=== PATIENT | male | born 1965 | race American Indian/Alaskan Native ===

== ENCOUNTER 2017-02-05 12:55 | Emergency (ER) | payer SELFPAY ==
[2017-02-05 15:01] VITALS: BP 153/98
== END 2017-02-05 14:58 | disposition left against medical advice (07) ==
LOC: ED 12:55
DX: M25.571 Pain in right ankle and joints of right foot (principal); M25.572 Pain in left ankle and joints of left foot; Z53.21 Procedure and treatment not carried out due to patient leaving prior to being seen by health care provider

== ENCOUNTER 2017-02-06 02:11 | Emergency (ER) | payer SELFPAY ==
[2017-02-06 02:19] VITALS: BP 161/103
[2017-02-06] MEDS ORDERED: TYLENOL ONE (02:30)
[2017-02-06 04:00] LABS: Anion Gap 21 mmol/L; Blood Urea Nitrogen 18 mg/dL (9-20); Calcium 7.9 mg/dL (8.4-10.2); Carbon Dioxide 22 mmol/L (22-30); Chloride 105.4 mmol/L (98-107); Glucose 146 mg/dL (75-100); Potassium 3.4 mmol/L (3.6-5.0); Sodium 145 mmol/L (137-145)
[2017-02-06] MEDS ORDERED: TYLENOL PO ONE (05:33)
[2017-02-06 06:09] LABS: Basophils % (Auto) 1.1 % (0.0-1.8); Eosinophils % (Auto) 0.6 % (0.0-4.3); Hematocrit 37.2 % (35.5-45.6); Hemoglobin 11.8 gm/dl (11.8-15.2); Mean Corpuscular HGB Conc 32 % (32-34); Mean Corpuscular Hemoglobin 27 pg (28-32); Mean Corpuscular Volume 84 fl (84-94); Platelet Count 157 K/mm3 (140-440); Red Blood Count 4.43 M/mm3 (3.65-5.03); White Blood Count 4.6 K/mm3 (4.5-11.0)
[2017-02-06 07:19] LABS: Erythrocyte Sedimentation Rate 31 mm/Hr (0-20)
== END 2017-02-06 03:12 | disposition left against medical advice (07) ==
LOC: ED 02:11
DX: M25.531 Pain in right wrist (principal); M25.532 Pain in left wrist; M25.571 Pain in right ankle and joints of right foot; M25.572 Pain in left ankle and joints of left foot; Z53.21 Procedure and treatment not carried out due to patient leaving prior to being seen by health care provider
CPT/HCPCS: 36415; 80048; 85025; 85652; 86140

== ENCOUNTER 2017-02-20 15:32 | Emergency (ER) | payer SELFPAY ==
[2017-02-20 16:24] LABS: Hematocrit 32.5 % (35.5-45.6); Hemoglobin 10.4 gm/dl (11.8-15.2); Mean Corpuscular HGB Conc 32 % (32-34); Mean Corpuscular Hemoglobin 27 pg (28-32); Mean Corpuscular Volume 85 fl (84-94); Platelet Count 112 K/mm3 (140-440); Red Blood Count 3.84 M/mm3 (3.65-5.03); Red Cell Distribution Width 15.4 % (13.2-15.2); White Blood Count 4.8 K/mm3 (4.5-11.0)
[2017-02-20 16:39] LABS: Anion Gap 21 mmol/L; BUN/Creatinine Ratio 18.18; Blood Urea Nitrogen 20 mg/dL (9-20); Carbon Dioxide 19 mmol/L (22-30); Chloride 108.8 mmol/L (98-107); Glucose 131 mg/dL (75-100); Sodium 145 mmol/L (137-145)
[2017-02-20] MEDS ORDERED: NACL 0.9% 1000 ML 1,000 ML IV ONE (16:54)
--- NOTE | 2017-02-20 16:58 | Emergency Department Report ---
HPI - General Chief Complaint: Pain General Time Seen by Provider: 02/20/17 16:11 - HPI HPI: 51-year-old male presents to the emergency department via EMS with complaint of generalized pain and alcohol intoxication. The patient has a history of alcohol abuse and always appears to have elevated alcohol level upon presentation to this emergency Department. He has a past medical history of lupus and hypertension. Patient is currently a poor historian secondary to his intoxicated state. ED Past Medical Hx - Past Medical History Previous Medical History?: Yes Hx Hypertension: Yes Hx Psychiatric Treatment: Yes (Alcohol Abuse, Depression) Additional medical history: lupus, gout. Dermititis, Eczema. Backache - Social History Smoking Status: Never Smoker Substance Use Type: Alcohol - Medications Home Medications: Home Medications Medication Instructions Recorded Confirmed Last Taken Type cloNIDine [Catapres] 0.1 mg PO BID 12/30/13 01/20/16 Unknown History Triamcinolone 0.1% [Kenalog 0.1% 1 applic TP TID #30 tube 09/04/16 Unknown Rx CREAM] ED Review of Systems ROS: Stated complaint: ETOH Other details as noted in HPI Comment: Unobtainable due to pts medical conditions Physical Exam - Physical Exam Vital Signs: Vital Signs 02/20/17 02/20/17 15:44 16:09 Temperature 97.5 F L Pulse Rate 83 Respiratory 16 16 Rate Blood Pressure 129/83 O2 Sat by Pulse 98 98 Oximetry Physical Exam: GENERAL: The patient is well-developed well-nourished. Patient appears intoxicated. HEENT: Normocephalic. Atraumatic. Extraocular motions are intact. Patient has moist mucous membranes. Pupils equal reactive to light bilaterally. NECK: Supple. Trachea is midline. CHEST/LUNGS: Clear to auscultation. There is no respiratory distress noted. HEART/CARDIOVASCULAR: Regular. There is no tachycardia. There is no gallop rub or murmur. ABDOMEN: Abdomen is soft, nontender. Patient has normal bowel sounds. There is no abdominal distention. SKIN: Skin is warm and dry. NEURO: Patient appears intoxicated. He does not follow many commands. He is sleeping unless he is stimulated but is easily arousable. MUSCULOSKELETAL: There is no tenderness or deformity. There is no limitation range of motion. There is no evidence of acute injury. ED Course Vital Signs 02/20/17 02/20/17 15:44 16:09 Temperature 97.5 F L Pulse Rate 83 Respiratory 16 16 Rate Blood Pressure 129/83 O2 Sat by Pulse 98 98 Oximetry ED Medical Decision Making - Lab Data Result diagrams: 02/20/17 16:08 02/20/17 16:08 - Medical Decision Making This is a 51-year-old male presents the emergency department with complaint of some generalized pain but really due to alcohol intoxication. He has a history of alcohol abuse. His blood alcohol level at 4 PM was 0.34. The rest of his labs are mostly unremarkable. He was given IV fluid resuscitation including normal saline and banana bags. The plan for this patient was going to be to keep him in the emergency department until he is legally sober and then he can be discharged unless there is further complaints or something further needs evaluation. Or if the patient appears more sober and there is family to come and take care of him and take responsibility for him that he would be discharged as well. However around 11:00 this evening, in between re- evaluations, it was discovered that the patient had eloped from the emergency department. The [facility] [employer] was contacted and they say that they will send someone out to his known residence and will look out for him while on patrol and if he is found he will be brought back to the emergency department. Critical Care Time: No Critical care attestation.: If time is entered above; I have spent that time in minutes in the direct care of this critically ill patient, excluding procedure time. ED Disposition Clinical Impression: Alcohol abuse, Alcoholism Disposition: ELOPED Is pt being admited?: No Condition: Stable Referrals: PRIMARY CARE, [Primary Care Provider] - 3-5 Days
[2017-02-20] MEDS ORDERED: VITAMIN B-1 100 MG, FOLVITE 1 MG, INFUVITE 10 ML in NACL 0.9% 1000 ML 1,000 ML IV ONE (17:30)
[2017-02-20 19:38] VITALS: BP 114/72
== END 2017-02-20 23:40 | disposition left against medical advice (07) ==
LOC: ED 15:32
DX: F10.129 Alcohol abuse with intoxication, unspecified (principal); I10 Essential (primary) hypertension
CPT/HCPCS: 36415; 80048; 85027; 93005; 93010; 96365; 96366; 99284; G0480; J3411; J7030; 80320

== ENCOUNTER 2017-02-26 19:13 | Emergency (ER) | payer SELFPAY | END 2017-02-26 19:29 | disposition left against medical advice (07) | LOC: ED 19:13 | DX: F10.10 Alcohol abuse, uncomplicated (principal); Z53.21 Procedure and treatment not carried out due to patient leaving prior to being seen by health care provider ==

== ENCOUNTER 2017-06-10 03:07 | Inpatient (IN) | payer SELFPAY ==
[2017-06-10 04:12] LABS: Anion Gap 17 mmol/L; Blood Urea Nitrogen 19 mg/dL (9-20); Calcium 8.3 mg/dL (8.4-10.2); Carbon Dioxide 25 mmol/L (22-30); Chloride 107.7 mmol/L (98-107); Glucose 112 mg/dL (75-100); Potassium 3.9 mmol/L (3.6-5.0); Sodium 146 mmol/L (137-145)
[2017-06-10 04:14] LABS: Basophils % (Auto) 0.6 % (0.0-1.8); Eosinophils % (Auto) 1.1 % (0.0-4.3); Hematocrit 35.8 % (35.5-45.6); Hemoglobin 11.6 gm/dl (11.8-15.2); Mean Corpuscular HGB Conc 32 % (32-34); Mean Corpuscular Hemoglobin 28 pg (28-32); Mean Corpuscular Volume 85 fl (84-94); Platelet Count 177 K/mm3 (140-440); Red Blood Count 4.22 M/mm3 (3.65-5.03); Red Cell Distribution Width 14.2 % (13.2-15.2); White Blood Count 6.5 K/mm3 (4.5-11.0)
[2017-06-10] MEDS ORDERED: VITAMIN B-1 100 MG, FOLVITE 1 MG, INFUVITE 10 ML in NACL 0.9% 1000 ML 1,000 ML IV ONE (05:03)
[2017-06-10] MEDS ORDERED: NACL 0.9% 1000 ML 1,000 ML IV ONE ×2 (05:06→13:36)
[2017-06-10] MEDS ORDERED: APRESOLINE IV ONE (05:31)
--- NOTE | 2017-06-10 05:34 | Emergency Department Report ---
HPI - General Chief Complaint: Medical Clearance Time Seen by Provider: 06/10/17 05:09 - HPI HPI: This is a 51 year-old male presents to the emergency department via EMS from home with a complaint of generalized body aches saying that he is having a lupus flareup. However the patient does admit to alcohol use. He has a history of alcoholism and says that he does drink every day. He also has a past medical history of hypertension, gout. It does not appear as if he took anything for his pain prior to presentation but did drink excessively. The patient is able to answer some questions appropriately but is a poor historian secondary to his level of intoxication. ED Past Medical Hx - Past Medical History Previous Medical History?: Yes Hx Hypertension: Yes Hx Psychiatric Treatment: Yes (Alcohol Abuse, Depression) Additional medical history: lupus, gout. Dermititis, Eczema. Backache - Surgical History Past Surgical History?: No - Social History Smoking Status: Unknown if ever smoked Substance Use Type: Alcohol - Medications Home Medications: Home Medications Medication Instructions Recorded Confirmed Last Taken Type cloNIDine [Catapres] 0.1 mg PO BID 12/30/13 01/20/16 Unknown History Triamcinolone 0.1% [Kenalog 0.1% 1 applic TP TID #30 tube 09/04/16 Unknown Rx CREAM] ED Review of Systems ROS: Stated complaint: BODY PAIN Other details as noted in HPI Comment: Unobtainable due to pts medical conditions Physical Exam - Physical Exam Vital Signs: Vital Signs 06/10/17 06/10/17 03:23 03:38 Temperature 97.5 F L Pulse Rate 79 Respiratory 20 18 Rate Blood Pressure 160/96 O2 Sat by Pulse 100 100 Oximetry Physical Exam: GENERAL: The patient is well-developed well-nourished. Patient appears intoxicated. HENT: Normocephalic. Atraumatic. Patient has moist mucous membranes. EYES: Extraocular motions are intact. Pupils equal reactive to light bilaterally. NECK: Supple. Trachea is midline. CHEST/LUNGS: Clear to auscultation. There is no respiratory distress noted. HEART/CARDIOVASCULAR: Regular. There is no tachycardia. There is no gallop rub or murmur. ABDOMEN: Abdomen is soft, nontender. Patient has normal bowel sounds. There is no abdominal distention. SKIN: Skin is warm and dry. NEURO: Patient is intoxicated appearing. At this time he is sleeping unless he is aroused by verbal and/or tactile stimuli. He can answer some questions appropriately. He is able to tell me person, place and time but does have some slurring of his speech. MUSCULOSKELETAL: There is no tenderness or deformity. There is no evidence of acute injury. ED Course Vital Signs 06/10/17 06/10/17 03:23 03:38 Temperature 97.5 F L Pulse Rate 79 Respiratory 20 18 Rate Blood Pressure 160/96 O2 Sat by Pulse 100 100 Oximetry ED Medical Decision Making - Lab Data Result diagrams: 06/10/17 03:36 06/10/17 03:36 - Medical Decision Making 51-year-old male presents after calling EMS secondary to possible lupus exacerbation and generalized body aches. Patient appears very intoxicated and was found to have a blood alcohol level of 0.42. The patient is arousable and able to answer some questions appropriately, he does appear acutely intoxicated. The rest of his labs are mostly unremarkable but we do not yet have a urinalysis on him. Due to the significantly high blood alcohol level, the patient will be admitted to the hospital for IV fluid resuscitation, electrolytes and vitamins, further evaluation and treatment. He has been accepted for admission by the hospitalist, Dr. Sterling. - Differential Diagnosis alcohol intoxication, lupus, polysubstance abuse Critical Care Time: No Critical care attestation.: If time is entered above; I have spent that time in minutes in the direct care of this critically ill patient, excluding procedure time. ED Disposition Clinical Impression: Alcohol abuse, Alcoholism Alcohol intoxication Qualifiers: Complication of substance-induced condition: with unspecified complication Qualified Code(s): F10.929 - Alcohol use, unspecified with intoxication, unspecified Hypertension Qualifiers: Hypertension type: essential hypertension Qualified Code(s): I10 - Essential ( primary) hypertension Disposition: OP ADMIT IP TO THIS HOSP Is pt being admited?: Yes Condition: Stable Instructions: Hypertension (ED) Referrals: PRIMARY CARE, [Primary Care Provider] - 3-5 Days Time of Disposition: 05:34
[2017-06-10 06:43] LABS: Urine Drugs of Abuse Note Disclamer
[2017-06-10 07:20] LABS: Bilirubin,Urine NEG (Negative); Blood,Urine SM (Negative); Ketones,Urine NEG (Negative); Leukocyte Esterase,Urine NEG (Negative); Nitrite,Urine NEG (Negative); Protein,Urine <15 mg/dL mg/dL (Negative); Urobilinogen,Urine < 2.0 mg/dL (<2.0); WBC,Urine < 1.0 /HPF (0.0-6.0)
--- NOTE | 2017-06-10 08:20 | History and Physical Report ---
History of Present Illness Date of examination: 04/09/17 Date of admission: 06/10/2017 Chief complaint: Generalized body aches History of present illness: Patient is a 51 year-old black male with past medical history of hypertension and lupus who presents to the emergency department via EMS from home with a complaint of generalized body aches saying that he is having a lupus flareup. Patient reported alcohol use and his last drinking was yesterday around 9:00PM. The patient has a history of alcohol abuse. Patient found to have elevated alcohol level upon presentation to this emergency Department. Patient is currently a poor historian secondary to alcohol intoxicated state. Denies fever, shortness of breath, seizure,palpitations, syncope, loss of bowel or bladder continence or recent ill contacts. Past History Past Medical History: hypertension, other (alcohol abuse and ) Past Surgical History: No surgical history Social history: smoking, alcohol abuse Family history: CAD, hypertension Medications and Allergies Allergies Allergy/AdvReac Type Severity Reaction Status Date / Time indomethacin [From Indocin] Allergy Unknown Verified 11/22/15 18:37 indomethacin sodium Allergy Unknown Verified 11/22/15 18:37 [From Indocin] Home Medications Medication Instructions Recorded Confirmed Last Taken Type cloNIDine [Catapres] 0.1 mg PO BID 12/30/13 01/20/16 Unknown History Triamcinolone 0.1% [Kenalog 0.1% 1 applic TP TID #30 tube 09/04/16 Unknown Rx CREAM] Active Meds: Active Medications Acetaminophen (Tylenol) 650 mg PO Q4H PRN PRN Reason: Pain MILD(1-3)/Fever >100.5/GARCIA Bisacodyl (Dulcolax) 10 mg DE QDAY PRN PRN Reason: Constipation unrelieved by MOM Clonidine HCl (Catapres) 0.1 mg PO BID SLOAN Thiamine HCl 100 mg/ Folic Acid 1 mg/ Multivitamins/Minerals 10 ml/ Sodium Chloride 1,011.2 mls @ 250 mls/hr IV ONCE.ED ONE Stop: 06/10/17 09:05 Last Admin: 06/10/17 05:15 Dose: 250 mls/hr Methylprednisolone Sodium Succinate (Solu-Medrol) 40 mg IV Q6HR SLOAN Morphine Sulfate (Morphine) 2 mg IV Q4H PRN PRN Reason: Pain, Moderate (4-6) Ondansetron HCl (Zofran) 4 mg IM Q4H PRN PRN Reason: Nausea And Vomiting Pantoprazole Sodium (Protonix) 40 mg IV DAILY [facility] Triamcinolone Acetonide (Kenalog) 1 applic TP TID [facility] Review of Systems Constitutional: other (generalized body ache), no weight loss, no weight gain, no fever, no chills Ears, nose, mouth and throat: no ear pain, no ear discharge, no tinnitis, no decreased hearing, no nose pain, no nasal congestion, no nasal discharge Cardiovascular: no palpitations, no rapid/irregular heart beat, no edema, no lightheadedness Respiratory: no cough with sputum, no excessive sputum, no hemoptysis, no shortness of breath, no dyspnea on exertion Gastrointestinal: no abdominal pain, no nausea, no vomiting, no diarrhea, no constipation, no change in bowel habits, no hematemesis Genitourinary Male: no flank pain, no urinary hesitancy, no nocturia, no incontinence, no erectile dysfunction Musculoskeletal: no neck stiffness, no neck pain, no shooting arm pain, no arm numbness/tingling, no low back pain, no shooting leg pain Integumentary: no rash, no pruritis, no redness, no sores, no wounds Neurological: no paralysis, no weakness, no parathesias, no numbness, no tingling Psychiatric: no memory loss, no change in sleep habits, no sleep disturbances, no insomnia, no hypersomnia Endocrine: no heat intolerance, no excessive thirst, no polydipsia, no polyuria Hematologic/Lymphatic: no easy bruising, no easy bleeding Allergic/Immunologic: no urticaria, no allergic rhinitis Exam - Constitutional Vitals: Temp Pulse Resp BP Pulse Ox 98.9 F 86 16 140/88 99 06/10/17 07:30 06/10/17 07:30 06/10/17 07:30 06/10/17 07:30 06/10/17 07:30 General appearance: Present: no acute distress, other - EENT Eyes: Present: PERRL ENT: hearing intact - Neck Neck: Present: supple - Respiratory Respiratory: bilateral: CTA - Cardiovascular Rhythm: regular Heart Sounds: Present: S1 & S2 - Extremities Extremities: no ischemia Peripheral Pulses: within normal limits - Abdominal General gastrointestinal: Present: soft, non-tender Male genitourinary: Present: deferred - Rectal Rectal Exam: deferred - Integumentary Integumentary: Present: clear, warm, dry - Musculoskeletal Musculoskeletal: strength equal bilaterally - Psychiatric Psychiatric: appropriate mood/affect - Neurologic Neurologic: CNII-XII intact - Allied Health Allied health notes reviewed: nursing Results - Labs CBC & Chem 7: 06/10/17 03:36 06/10/17 03:36 Labs: Laboratory Last Values WBC 6.5 K/mm3 (4.5-11.0) 06/10/17 03:36 RBC 4.22 M/mm3 (3.65-5.03) 06/10/17 03:36 Hgb 11.6 gm/dl (11.8-15.2) L 06/10/17 03:36 Hct 35.8 % (35.5-45.6) 06/10/17 03:36 MCV 85 fl (84-94) 06/10/17 03:36 MCH 28 pg (28-32) 06/10/17 03:36 MCHC 32 % (32-34) 06/10/17 03:36 RDW 14.2 % (13.2-15.2) 06/10/17 03:36 Plt Count 177 K/mm3 (140-440) 06/10/17 03:36 Lymph % (Auto) 32.9 % (13.4-35.0) 06/10/17 03:36 [place] % (Auto) 7.0 % (0.0-7.3) 06/10/17 03:36 Eos % (Auto) 1.1 % (0.0-4.3) 06/10/17 03:36 Baso % (Auto) 0.6 % (0.0-1.8) 06/10/17 03:36 Lymph # 2.1 K/mm3 (1.2-5.4) 06/10/17 03:36 [place] # 0.5 K/mm3 (0.0-0.8) 06/10/17 03:36 Eos # 0.1 K/mm3 (0.0-0.4) 06/10/17 03:36 Baso # 0.0 K/mm3 (0.0-0.1) 06/10/17 03:36 Seg Neutrophils % 58.4 % (40.0-70.0) 06/10/17 03:36 Seg Neutrophils # 3.8 K/mm3 (1.8-7.7) 06/10/17 03:36 Sodium 146 mmol/L (137-145) H 06/10/17 03:36 Potassium 3.9 mmol/L (3.6-5.0) 06/10/17 03:36 Chloride 107.7 mmol/L (98-107) H 06/10/17 03:36 Carbon Dioxide 25 mmol/L (22-30) 06/10/17 03:36 Anion Gap 17 mmol/L 06/10/17 03:36 BUN 19 mg/dL (9-20) 06/10/17 03:36 Creatinine 1.0 mg/dL (0.8-1.5) 06/10/17 03:36 Estimated GFR > 60 ml/min 06/10/17 03:36 BUN/Creatinine Ratio 19.00 % 06/10/17 03:36 Glucose 112 mg/dL (75-100) H 06/10/17 03:36 Calcium 8.3 mg/dL (8.4-10.2) L 06/10/17 03:36 Total Creatine Kinase 373 units/L (55-170) H 06/10/17 05:10 Urine Color Straw (Yellow) 06/10/17 06:22 Urine Turbidity Clear (Clear) 06/10/17 06:22 Urine pH 5.0 (5.0-7.0) 06/10/17 06:22 Ur Specific [place] 1.013 (1.003-1.030) 06/10/17 06:22 Urine Protein <15 mg/dl mg/dL (Negative) 06/10/17 06:22 Urine Glucose (UA) Neg mg/dL (Negative) 06/10/17 06:22 Urine Ketones Neg mg/dL (Negative) 06/10/17 06:22 Urine Blood Sm (Negative) 06/10/17 06:22 Urine Nitrite Neg (Negative) 06/10/17 06:22 Urine Bilirubin Neg (Negative) 06/10/17 06:22 Urine Urobilinogen < 2.0 mg/dL (<2.0) 06/10/17 06:22 Ur Leukocyte Esterase Neg (Negative) 06/10/17 06:22 Urine WBC (Auto) < 1.0 /HPF (0.0-6.0) 06/10/17 06:22 Urine RBC (Auto) 3.0 /HPF (0.0-6.0) 06/10/17 06:22 U Epithel Cells (Auto) < 1.0 /HPF (0-13.0) 06/10/17 06:22 Plasma/Serum Alcohol 0.42 gm% (0-0.07) H 06/10/17 03:36 Assessment and Plan Assessment and plan: Patient is a 51 year-old black male with past medical history of hypertension and lupus who presents to the emergency department via EMS from home with a complaint of generalized body aches saying that he is having a lupus flareup. Patient reported alcohol use and his last drinking was yesterday around 9:00PM. Toxic metabolic encephalopathy Most likely due to alcohol intoxication and alcohol withdrawal Supportive care Alcohol intoxication/EtOH dependence Patient found to have a blood alcohol level of 0.42 Started banana bag and IV fluid hydration Initiates CIWA protocol, Patients will be counseled on cessation and given resources when patient alert and oriented. Supportive care Nontraumatic rhabdomyolysis elevated total creatinine kinase Strated on NS @125 cc/hr Closely monitor total creatinine kinase Hypertension Resume home antihypertensive medications Hypernatremia Most likely due to dehydration Continue IV fluids Supportive care Lupus Patient reported generalized body aches stated that he is having a lupus flareup ESR/CRP obtained Started on IV steroid Pain Medication Resume home Triamcinolone DVT/ GIprophylaxis Lovenox/ IV Protonix Plan discussed with patient and the nurse Advance Directives: Yes VTE prophylaxis?: Chemical Contraindication Mechanical VTE Prophylaxis: Treatment Not Indicated Plan of care discussed with patient/family: Yes
[2017-06-10] MEDS ORDERED: ATIVAN IV PRN ×2 (08:21→09:00)
[2017-06-10] MEDS ORDERED: TYLENOL PO PRN (08:30)
[2017-06-10] MEDS ORDERED: MORPHINE IV PRN (08:30)
[2017-06-10] MEDS ORDERED: LIBRIUM PO PRN ×2 (09:00)
[2017-06-10] MEDS ORDERED: ZOFRAN IM PRN (09:00)
--- NOTE | 2017-06-10 09:03 | Event Note ---
Date: 06/10/17 51-year-old man with past medical history of SLE and alcohol dependence. He presented complaining of generalized body aches which she stated were consistent with his lupus flare. Admits not taking any medications for lupus was drinking excessively. At the time of presentation to the ER, patient was intoxicated, and somewhat incoherent Labs reviewed. This patient appears dehydrated, has hyponatremia, elevated CPK , UA negative, blood alcohol level is 0.42 * Alcohol intoxication/EtOH dependence: Start banana bag, initiates CIWA protocol, patients will be counseled on cessation and given resources when he is clinically improved * Toxic metabolic encephalopathy: This is most likely due to alcohol intoxication and withdrawal, continue treatment as highlighted above * Nontraumatic rhabdomyolysis: Continue IV fluids * Hypertension: Resume home medications * Hypernatremia/dehydration: Continue IV fluids as highlighted above
[2017-06-10] MEDS ORDERED: CATAPRES PO SCH (10:00)
[2017-06-10] MEDS ORDERED: DULCOLAX PR PRN (10:00)
[2017-06-10] MEDS ORDERED: PROTONIX IV SCH (10:00)
[2017-06-10 10:09] VITALS: BP 143/87
[2017-06-10] MEDS: KENALOG TP SCH ×2 (12:19→18:11)
--- NOTE | 2017-06-10 15:46 | Event Note ---
<BARBY CHAVEZ - Last Filed: 06/10/17 15:46> Date: 06/10/17 Patient eloped from hospital. <YUSUF OJEDA - Last Filed: 06/11/17 10:38> Nurses alerted me that patient eloped from the hospital.
[2017-06-11] MEDS ORDERED: PROTONIX PO SCH (10:00)
== END 2017-06-10 12:50 | disposition left against medical advice (07) | DRG 545 ==
LOC: ED 03:07 → 3A 08:12
PROVIDERS: ADMIT Internal Medicine; ATTEND Internal Medicine
DX: M32.9 Systemic lupus erythematosus, unspecified (principal); G92 Toxic encephalopathy; F10.239 Alcohol dependence with withdrawal, unspecified; E87.1 Hypo-osmolality and hyponatremia; M62.82 Rhabdomyolysis; I10 Essential (primary) hypertension; M10.9 Gout, unspecified; F32.9 Major depressive disorder, single episode, unspecified; E86.0 Dehydration; F10.229 Alcohol dependence with intoxication, unspecified; Z88.8 Allergy status to other drugs, medicaments and biological substances
CPT/HCPCS: 36415; 80048; 80307; 80320; 81001; 82140; 82550; 85025; 85652; 86140; 96365; 96366; 96375; C9113; G0480; J2920; J3411; J7030

== ENCOUNTER 2017-06-10 14:54 | Emergency (ER) | payer SELFPAY ==
[2017-06-10 16:14] VITALS: BP 148/95
== END 2017-06-10 19:29 | disposition left against medical advice (07) ==
LOC: ED 14:54
DX: Z53.21 Procedure and treatment not carried out due to patient leaving prior to being seen by health care provider (principal)

== ENCOUNTER 2019-01-02 23:53 | Emergency (ER) | payer MEDICAID ==
[2019-01-03 00:09] VITALS: BP 152/107
[2019-01-03 01:01] LABS: Basophils % (Auto) 0.9 % (0.0-1.8); Eosinophils % (Auto) 0.4 % (0.0-4.3); Hematocrit 39.3 % (35.5-45.6); Hemoglobin 12.7 gm/dl (11.8-15.2); Lymphocytes # (Auto) 1.7 K/mm3 (1.2-5.4); Lymphocytes % (Auto) 39.3 % (13.4-35.0); Mean Corpuscular HGB Conc 32 % (32-34); Mean Corpuscular Volume 86 fl (84-94); Monocytes # (Auto) 0.6 K/mm3 (0.0-0.8); Monocytes % (Auto) 14.4 % (0.0-7.3); Platelet Count 139 K/mm3 (140-440)
[2019-01-03 01:22] LABS: Alanine Aminotransferase 41 units/L (7-56); BUN/Creatinine Ratio 11; Blood Urea Nitrogen 12 mg/dL (9-20); Calcium 8.4 mg/dL (8.4-10.2); Hemolysis Index 1
== END 2019-01-03 02:10 | disposition left against medical advice (07) ==
LOC: ED 23:53
DX: L93.0 Discoid lupus erythematosus (principal); Z53.21 Procedure and treatment not carried out due to patient leaving prior to being seen by health care provider
CPT/HCPCS: 36415; 80053; 85025; G0480; 80320

== ENCOUNTER 2019-04-03 14:07 | Inpatient (IN) | payer MEDICAID ==
--- NOTE | 2019-04-03 14:11 | Event Note ---
ED Screening Note Date of service: 04/03/19 Time: 14:10 ED Screening Note: 53 y/o male comes in for bilateral feet swelling. tacycardia This initial assessment/diagnostic orders/clinical plan/treatment(s) is/are subject to change based on patients health status, clinical progression and re-assessment by fellow clinical providers in the ED. Further treatment and workup at subsequent clinical providers discretion. Patient/guardian urged not to elope from the ED as their condition may be serious if not clinically assessed and managed. Initial orders include:
[2019-04-03] MEDS ORDERED: CARDIZEM IVP ONE (14:48)
[2019-04-03 14:55] LABS: Alanine Aminotransferase 137 units/L (7-56); Albumin 2.7 g/dL (3.9-5); BUN/Creatinine Ratio 17; Blood Urea Nitrogen 19 mg/dL (9-20); Calcium 7.9 mg/dL (8.4-10.2); Hemolysis Index 0
[2019-04-03 14:58] LABS: Basophils % (Auto) 0.6 % (0.0-1.8); Eosinophils % (Auto) 0.2 % (0.0-4.3); Hematocrit 33.2 % (35.5-45.6); Hemoglobin 10.7 gm/dl (11.8-15.2); Lymphocytes % (Auto) 12.1 % (13.4-35.0); Mean Corpuscular HGB Conc 32 % (32-34); Mean Corpuscular Volume 87 fl (84-94); Monocytes # (Auto) 0.8 K/mm3 (0.0-0.8); Monocytes % (Auto) 9.3 % (0.0-7.3); Platelet Count 145 K/mm3 (140-440); Red Blood Count 3.81 M/mm3 (3.65-5.03); Red Cell Distribution Width 19.1 % (13.2-15.2)
[2019-04-03] MEDS ORDERED: CARDIZEM IV ONE (16:37)
--- NOTE | 2019-04-03 16:41 | Emergency Department Report ---
ED General Adult HPI - General Chief complaint: Extremity Problem,Nontraumatic Stated complaint: FEET SWELLING/LEGS PAIN/LUPUS Time Seen by Provider: 04/03/19 14:10 Source: patient Mode of arrival: Ambulatory Limitations: No Limitations - History of Present Illness Severity scale (0 -10): 0 - Related Data Home Medications Medication Instructions Recorded Confirmed Last Taken cloNIDine [Catapres] 0.1 mg PO BID 12/30/13 01/20/16 Unknown Previous Rx's Medication Instructions Recorded Last Taken Type Triamcinolone 0.1% [Kenalog 0.1% 1 applic TP TID #30 tube 09/04/16 Unknown Rx CREAM] Allergies Allergy/AdvReac Type Severity Reaction Status Date / Time indomethacin [From Indocin] Allergy Unknown Verified 11/22/15 18:37 indomethacin sodium Allergy Unknown Verified 11/22/15 18:37 [From Indocin] ED Review of Systems ROS: Stated complaint: FEET SWELLING/LEGS PAIN/LUPUS Other details as noted in HPI ED Past Medical Hx - Past Medical History Previous Medical History?: Yes Hx Hypertension: Yes Hx Congestive Heart Failure: Yes Hx Diabetes: No Hx Arthritis: Yes Hx Headaches / Migraines: No Hx Seizures: No Hx Psychiatric Treatment: Yes (Alcohol Abuse, Depression) Hx Asthma: No Hx COPD: No Hx Dementia: No Hx HIV: No Additional medical history: lupus, gout. Dermititis, Eczema. Backache - Surgical History Past Surgical History?: No Hx Pacemaker: No - Social History Smoking Status: Never Smoker Substance Use Type: None - Medications Home Medications: Home Medications Medication Instructions Recorded Confirmed Last Taken Type cloNIDine [Catapres] 0.1 mg PO BID 12/30/13 01/20/16 Unknown History Triamcinolone 0.1% [Kenalog 0.1% 1 applic TP TID #30 tube 09/04/16 Unknown Rx CREAM] ED Physical Exam - General Limitations: No Limitations ED Course Vital Signs 04/03/19 04/03/19 04/03/19 14:09 14:49 15:00 Temperature 98.8 F 98.6 F Pulse Rate 143 H 140 H 139 H Respiratory 20 24 22 Rate Blood Pressure 143/104 142/108 Blood Pressure 142/108 [Left] O2 Sat by Pulse 97 98 99 Oximetry 04/03/19 04/03/19 04/03/19 15:01 15:09 15:15 Temperature Pulse Rate 107 H 98 H Respiratory 17 22 26 H Rate Blood Pressure 123/91 123/91 Blood Pressure [Left] O2 Sat by Pulse 100 99 99 Oximetry 04/03/19 04/03/19 16:15 16:32 Temperature Pulse Rate 100 H 112 H Respiratory 20 21 Rate Blood Pressure 130/86 Blood Pressure 145/106 [Left] O2 Sat by Pulse 100 99 Oximetry ED Medical Decision Making - Lab Data Result diagrams: 04/03/19 14:21 04/03/19 14:21 Critical care attestation.: If time is entered above; I have spent that time in minutes in the direct care of this critically ill patient, excluding procedure time. ED Disposition Clinical Impression: Alcoholic liver disease, Anasarca, Atrial fibrillation with rapid ventricular response, Alcoholism Disposition: OP ADMIT IP TO THIS HOSP Is pt being admited?: Yes Does the pt Need Aspirin: No Condition: Stable Referrals: JOSE WOODS MD [Primary Care Provider] - 3-5 Days
--- NOTE | 2019-04-03 16:59 | History and Physical Report ---
History of Present Illness Chief complaint: I cant breathe, and im swelling up History of present illness: 53 YO Male with ETOH Dependence, Obesity, HTN, Systolic CHF, OA, Obesity Hypoventilation, Depression, SLE, Gout, Eczema, Lumbar Pain presents to ED for evaluation. Pt states that he has experienced shortness of breath, and leg swelling, and abdominal distention over the past 2 weeks with progressively worsening symptoms over the past 1 week. Pt acknowledges Orthopnea/PND, decreased exercise tolerance, dypsnea at rest, dypsnea on exertion, bilateral lower extremity edema, noncompliance with cardiac diet, as well as 20lbs weight gain over the past 3 weeks. Pt denies fever, chills, CP, Palpitations, NVD, Tra yousuf, productive cough, BRBPR, Unintentional weight loss, prolonged travel/immobility, unilateral leg swelling, calf pain, hemoptysis, skin rash or recent ill contacts. Pt transported to [facility] via private vehicle. Pt seen and evaluated in ED and found to have CHF Decompensation as well as ETOH induced Liver Failure complicated by Ascites, Acidosis. Pt admitted to telemetry and initiated on CHF protocol. Prior admission on 05/31/17 reviewed. All listed medication reviewed at time of admission. Extra 30 minutes dedicated to discussion of plan of care. Pt acknowledges understanding and agreement with care plan. Past History Past Medical History: hypertension, other (SLE,OBesity Hypoventilation,ETOH Dependence, Obesity) Past Surgical History: No surgical history, Other (reviewed) Social history: single, smoking. denies: alcohol abuse, prescription drug abuse Family history: hypertension Medications and Allergies Allergies Allergy/AdvReac Type Severity Reaction Status Date / Time indomethacin [From Indocin] Allergy Unknown Verified 11/22/15 18:37 indomethacin sodium Allergy Unknown Verified 11/22/15 18:37 [From Indocin] Home Medications Medication Instructions Recorded Confirmed Last Taken Type cloNIDine [Catapres] 0.1 mg PO BID 12/30/13 04/03/19 Unknown History Triamcinolone 0.1% [Kenalog 0.1% 1 applic TP TID #30 tube 09/04/16 04/03/19 Unknown Rx CREAM] Furosemide [Lasix] 20 mg PO QDAY 04/03/19 04/03/19 Unknown History Losartan [Cozaar] 50 mg PO QDAY 04/03/19 04/03/19 Unknown History Review of Systems Constitutional: weight gain, no weight loss, no fever, no chills, no sweats Ears, nose, mouth and throat: no ear pain, no ear discharge, no tinnitis, no decreased hearing, no nose pain, no nasal congestion Cardiovascular: orthopnea, edema, shortness of breath, dyspnea on exertion, paroxysmal nocturnal dyspnea, leg edema, decreased exercise tolerance, no chest pain, no palpitations, no rapid/irregular heart beat Respiratory: no cough, no cough with sputum, no excessive sputum, no hemoptysis Gastrointestinal: no nausea, no vomiting, no diarrhea, no constipation Genitourinary Male: no hematuria, no flank pain, no discharge, no urinary frequency, no urinary hesitancy Rectal: no pain, no incontinence, no bleeding Musculoskeletal: no neck stiffness, no neck pain, no shooting arm pain, no arm numbness/tingling, no low back pain, no shooting leg pain Integumentary: jaundice, no rash, no pruritis, no redness, no sores, no wounds Neurological: no head injury, no transient paralysis, no paralysis, no weakness, no parathesias, no tingling Psychiatric: no anxiety, no memory loss, no change in sleep habits, no sleep disturbances, no insomnia, no hypersomnia, no change in libido Endocrine: no cold intolerance, no heat intolerance, no polyphagia, no excessive thirst, no polydipsia, no polyuria Hematologic/Lymphatic: no easy bruising, no easy bleeding Allergic/Immunologic: no urticaria, no allergic rhinitis, no wheezing Exam - Constitutional Vitals: Temp Pulse Resp BP Pulse Ox 98.6 F 112 H 21 145/106 99 04/03/19 15:00 04/03/19 16:32 04/03/19 16:32 04/03/19 16:32 04/03/19 16:32 General appearance: Present: mild distress, obese - EENT Eyes: Present: PERRL, scleral icterus ENT: hearing intact, clear oral mucosa - Neck Neck: Present: supple, normal ROM - Respiratory Respiratory effort: labored Respiratory: bilateral: diminished, rhonchi - Cardiovascular Heart Sounds: Present: S1 & S2. Absent: rub, click - Extremities Extremities: no ischemia Extremity abnormal: edema Peripheral Pulses: within normal limits - Abdominal General gastrointestinal: Present: soft, non-tender, non-distended, normal bowel sounds Male genitourinary: Present: normal - Integumentary Integumentary: Present: clear, warm, dry - Musculoskeletal Musculoskeletal: gait normal, strength equal bilaterally - Psychiatric Psychiatric: appropriate mood/affect, intact judgment & insight - Neurologic Neurologic: CNII-XII intact, moves all extremities Results - Labs CBC & Chem 7: 04/03/19 14:21 04/03/19 14:21 Labs: Abnormal lab results 04/03/19 04/03/19 04/03/19 Range/Units 14:21 14:21 14:21 Hgb 10.7 L (11.8-15.2) gm/dl Hct 33.2 L (35.5-45.6) % RDW 19.1 H (13.2-15.2) % Lymph % (Auto) 12.1 L (13.4-35.0) % [place] % (Auto) 9.3 H (0.0-7.3) % Lymph # 1.0 L (1.2-5.4) K/mm3 Seg Neutrophils % 77.8 H (40.0-70.0) % Sodium 134 L (137-145) mmol/L Potassium 3.4 L (3.6-5.0) mmol/L Carbon Dioxide 20 L (22-30) mmol/L Glucose 105 H (75-100) mg/dL Calcium 7.9 L (8.4-10.2) mg/dL Total Bilirubin 4.70 H (0.1-1.2) mg/dL AST 366 H (5-40) units/L ALT 137 H (7-56) units/L Alkaline Phosphatase 176 H (35-129) units/L NT-Pro-B Natriuret Pep 2712 H (0-900) pg/mL Albumin 2.7 L (3.9-5) g/dL Assessment and Plan - Patient Problems (1) CHF (congestive heart failure) Current Visit: Yes Status: Acute Qualifiers: Heart failure type: systolic Heart failure chronicity: acute Qualified Code(s): I50.21 - Acute systolic (congestive) heart failure Plan to address problem: Admit to telemetry, Echo, Strict I/O, daily weight, cardiology consulted, diuresis, chest x ray, bnp, pulse oximetry, supplemental oxygen, afterload reduction, thyroid panel, magnesium level. (2) Alcoholic liver disease Current Visit: Yes Status: Acute Plan to address problem: Liver function test, CT Abdomen/Pelvis, (3) Acidosis Current Visit: Yes Status: Acute Plan to address problem: IVF resuscitation therapy as tolerated, repeat bmp (4) Obesity hypoventilation syndrome Current Visit: Yes Status: Acute Plan to address problem: supplemental oxygen, nebulizer therapy, increased physical activity at discharge, NIPPV qhs. (5) Hypokalemia Current Visit: Yes Status: Acute Plan to address problem: Repleted, repeat bmp (6) Hypertension Current Visit: No Status: Acute Qualifiers: Hypertension type: essential hypertension Qualified Code(s): I10 - Essenti al (primary) hypertension Plan to address problem: monitor bp q shift, supportive care. (7) Obesity (BMI 30.0-34.9) Current Visit: Yes Status: Acute Plan to address problem: Balanced diet, increased physical activity at discharge, dietary counseling:+15minutes (8) DVT prophylaxis Current Visit: Yes Status: Acute Plan to address problem: SCD to BLE while in bed,
[2019-04-03] MEDS ORDERED: ATIVAN IV PRN (17:09)
[2019-04-03] MEDS ORDERED: SODIUM CHLORIDE FLUSH SYRINGE 10 ML IV PRN (17:10)
[2019-04-03] MEDS ORDERED: PROVENTIL IH PRN (17:10)
[2019-04-03] MEDS ORDERED: ZOFRAN IV PRN (17:10)
[2019-04-03 17:40] LABS: Free T4 (Free Thyroxine) 1.36 ng/dL (0.76-1.46)
--- NOTE | 2019-04-03 17:48 | Emergency Department Report ---
ED General Adult HPI - General Chief complaint: Extremity Problem,Nontraumatic Stated complaint: FEET SWELLING/LEGS PAIN/LUPUS Time Seen by Provider: 04/03/19 14:10 Source: patient Mode of arrival: Ambulatory Limitations: No Limitations - History of Present Illness Initial comments: Mr. Garcia is a 53 yo male with hx of alcoholism SLE HTN and CHF who presents with presents with leg swelling. He has been noncompliant with medication since discharge from [facility] 2 weeks ago. Unknown whether if he has liver disease. Mr. Garcia is a poor historian. I obtained medical hx from EMR -: Gradual, week(s) (1) Severity scale (0 -10): 0 Quality: burning (sensation in feet) Consistency: constant Improves with: none Worsens with: none - Related Data Home Medications Medication Instructions Recorded Confirmed Last Taken cloNIDine [Catapres] 0.1 mg PO BID 12/30/13 01/20/16 Unknown Previous Rx's Medication Instructions Recorded Last Taken Type Triamcinolone 0.1% [Kenalog 0.1% 1 applic TP TID #30 tube 09/04/16 Unknown Rx CREAM] Allergies Allergy/AdvReac Type Severity Reaction Status Date / Time indomethacin [From Indocin] Allergy Unknown Verified 11/22/15 18:37 indomethacin sodium Allergy Unknown Verified 11/22/15 18:37 [From Indocin] ED Review of Systems ROS: Stated complaint: FEET SWELLING/LEGS PAIN/LUPUS Other details as noted in HPI Comment: All other systems reviewed and negative Constitutional: malaise. denies: fever Respiratory: denies: shortness of breath Cardiovascular: denies: chest pain, palpitations ED Past Medical Hx - Past Medical History Previous Medical History?: Yes Hx Hypertension: Yes Hx Congestive Heart Failure: Yes Hx Diabetes: No Hx Arthritis: Yes Hx Headaches / Migraines: No Hx Seizures: No Hx Psychiatric Treatment: Yes (Alcohol Abuse, Depression) Hx Asthma: No Hx COPD: No Hx Dementia: No Hx HIV: No Additional medical history: lupus, gout. Dermititis, Eczema. Backache - Surgical History Past Surgical History?: No Hx Pacemaker: No - Social History Smoking Status: Never Smoker Substance Use Type: None - Medications Home Medications: Home Medications Medication Instructions Recorded Confirmed Last Taken Type cloNIDine [Catapres] 0.1 mg PO BID 12/30/13 01/20/16 Unknown History Triamcinolone 0.1% [Kenalog 0.1% 1 applic TP TID #30 tube 09/04/16 Unknown Rx CREAM] ED Physical Exam - General Limitations: No Limitations General appearance: alert, in no apparent distress, other (disheveled, appears in poor health chronically) - Head Head exam: Present: atraumatic, normocephalic - Eye Eye exam: Present: normal appearance - ENT ENT exam: Present: mucous membranes moist - Neck Neck exam: Present: normal inspection, full ROM - Respiratory Respiratory exam: Present: normal lung sounds bilaterally. Absent: respiratory distress, wheezes, rales, rhonchi - Cardiovascular Cardiovascular Exam: Present: tachycardia, irregular rhythm, normal heart sounds. Absent: systolic murmur, diastolic murmur, rubs, gallop - GI/Abdominal GI/Abdominal exam: Present: soft, normal bowel sounds. Absent: distended, tenderness, guarding - Rectal Rectal exam: Present: deferred - Extremities Exam Extremities exam: Present: pedal edema, other (pitting edema) - Neurological Exam Neurological exam: Present: alert, oriented X3 - Psychiatric Psychiatric exam: Present: normal affect, normal mood - Skin Skin exam: Present: warm, dry, intact, normal color. Absent: rash ED Course Vital Signs 04/03/19 04/03/19 04/03/19 14:09 14:49 15:00 Temperature 98.8 F 98.6 F Pulse Rate 143 H 140 H 139 H Respiratory 20 24 22 Rate Blood Pressure 143/104 142/108 Blood Pressure 142/108 [Left] O2 Sat by Pulse 97 98 99 Oximetry 04/03/19 04/03/19 04/03/19 15:01 15:09 15:15 Temperature Pulse Rate 107 H 98 H Respiratory 17 22 26 H Rate Blood Pressure 123/91 123/91 Blood Pressure [Left] O2 Sat by Pulse 100 99 99 Oximetry 04/03/19 04/03/19 16:15 16:32 Temperature Pulse Rate 100 H 112 H Respiratory 20 21 Rate Blood Pressure 130/86 Blood Pressure 145/106 [Left] O2 Sat by Pulse 100 99 Oximetry ED Medical Decision Making - Lab Data Result diagrams: 04/03/19 14:21 04/03/19 14:21 - EKG Data 04/03/19 17:47 EKG obtained 1417 Atrial fibrillation vs atrial flutter RVR ventricular rate [address] elevation non specific T wave pattern - Radiology Data Radiology results: report reviewed cxr: NAP - Medical Decision Making 1. anasarca presumably due nonsichemic cardiomyopathy with hx of alcholism. Also possible liver component to presentation 2. Atrial fibrillation RVR rate controlled with diltiazem boluses, appears to be a new diagnosis for patient according to our documentation, unclear nature of [facility] admission 3. alcoholic liver disease has progressed since previous presentations with markedly elevated AST, ALT, bilirubin admitted to hospitalist service for further evaluation Critical Care Time: Yes Critical care time in (mins) excluding proc time.: 40 Critical care attestation.: If time is entered above; I have spent that time in minutes in the direct care of this critically ill patient, excluding procedure time. 40 minutes of critical care time excluding procedures were used in the care of the patient. Patient required multiple assessments and interventions. I reviewed the electronic medical record. I spoke with [employer] iam consultant involved in the care of the patient. ED Disposition Clinical Impression: Alcoholic liver disease, Anasarca, Atrial fibrillation with rapid ventricular response, Alcoholism Disposition: [id number] OP ADMIT IP TO THIS HOSP Is pt being admited?: Yes Does the pt Need Aspirin: No Condition: Stable
--- NOTE | 2019-04-03 17:52 | XRay Report ---
CHEST 1 VIEW INDICATION / CLINICAL INFORMATION: dypsnea. COMPARISON: None available. FINDINGS: SUPPORT DEVICES: None. HEART / MEDIASTINUM: No significant abnormality. LUNGS / PLEURA: No significant pulmonary or pleural abnormality. No pneumothorax. ADDITIONAL FINDINGS: No significant additional findings. IMPRESSION: 1. No acute findings. Signer Name: Wagner Buck MD Signed: 04/03/2019 5:48 PM Workstation Name: [id number]
[2019-04-03] MEDS ORDERED: VITAMIN B-1 PO ONE (18:00)
[2019-04-03] MEDS ORDERED: THERAGRAN Tab PO ONE (18:00)
[2019-04-03] MEDS: FOLVITE PO SCH (18:03)
[2019-04-03] MEDS: LASIX IV SCH (18:03)
[2019-04-03 18:53] LABS: Bilirubin,Direct 3.1 mg/dL (0-0.2)
[2019-04-03] MEDS ORDERED: K-DUR PO ONE ×2 (19:42→23:15)
--- NOTE | 2019-04-03 19:45 | Cat Scan Report ---
CTA CHEST WITH IV CONTRAST INDICATION: patient states trouble breathing. TECHNIQUE: Axial CT images were obtained through the chest after injection of 100 mL IV contrast. 3 plane MIP re constructions were produced. All CT scans at this location are performed using CT dose reduction for ALARA by means of automated exposure control. COMPARISON: None available. FINDINGS: PULMONARY ARTERIES: No pulmonary emboli. AORTA AND ARTERIES: No acute abnormality. MEDIASTINUM: The heart is mildly enlarged. LUNGS: Moderate right pleural effusion with small left pleural effusion. ADDITIONAL FINDINGS: None. UPPER ABDOMEN: Moderate ascites. BONES: No significant osseous abnormality. IMPRESSION: 1. No CT evidence for pulmonary embolism. 2. Cardiomegaly with cardiopulmonary edema and bilateral pleural effusions. CT ABDOMEN AND PELVIS WITH IV CONTRAST INDICATION: patient states trouble breathing. Upper abdominal pain. Abdominal distention. COMPARISON: None available. TECHNIQUE: Axial CT images were obtained through the abdomen and pelvis after 100 mL IV contrast. All CT scans a t this location are performed using CT dose reduction for ALARA by means of automated exposure contro l. FINDINGS -- ABDOMEN: Liver: The liver appears congested.. Gallbladder: Significant periportal edema limits evaluation. Bile Ducts: Normal. Pancreas: Normal. Spleen: Normal. Adrenals: Normal. Right Kidney and Proximal Ureter: Normal. Left Kidney and Proximal Ureter: Normal. Stomach and Bowel: Normal. Lymph Nodes: No significant adenopathy. Aorta: No significant abnormality. IVC: Normal. Additional Findings: None. FINDINGS -- PELVIS: Urinary Bladder and Distal Ureters: Normal. Reproductive Organs: No acute abnormality. Appendix: Not well identified. Bowel: No acute abnormality. Free Fluid: Moderate to large volume free ascites.. Lymph Nodes: No significant adenopathy. Additional Findings: Anasarca. Skeletal System: No acute abnormality. IMPRESSION: Moderate to severe hepatic congestion, possibly secondary to right heart failure. Moderate ascites. Signer Name: Wagner Buck MD Signed: 04/03/2019 7:40 PM Workstation Name: [id number]
--- NOTE | 2019-04-03 19:48 | Cat Scan Report ---
CT ABDOMEN AND PELVIS WITH IV CONTRAST INDICATION: patient states trouble breathing. Upper abdominal pain. Abdominal distention. COMPARISON: None available. TECHNIQUE: Axial CT images were obtained through the abdomen and pelvis after 100 mL IV contrast. All CT scans a t this location are performed using CT dose reduction for ALARA by means of automated exposure contro l. FINDINGS -- ABDOMEN: Liver: The liver appears congested.. Gallbladder: Significant periportal edema limits evaluation. Bile Ducts: Normal. Pancreas: Normal. Spleen: Normal. Adrenals: Normal. Right Kidney and Proximal Ureter: Normal. Left Kidney and Proximal Ureter: Normal. Stomach and Bowel: Normal. Lymph Nodes: No significant adenopathy. Aorta: No significant abnormality. IVC: Normal. Additional Findings: None. FINDINGS -- PELVIS: Urinary Bladder and Distal Ureters: Normal. Reproductive Organs: No acute abnormality. Appendix: Not well identified. Bowel: No acute abnormality. Free Fluid: Moderate to large volume free ascites.. Lymph Nodes: No significant adenopathy. Additional Findings: Anasarca. Skeletal System: No acute abnormality. IMPRESSION: Moderate to severe hepatic congestion, possibly secondary to right heart failure. Moderate ascites. Signer Name: Wagner Buck MD Signed: 04/03/2019 7:44 PM Workstation Name: [email or web address]
[2019-04-03 21:07] LABS: Amphetamine Screen,Urine PRESUMPTIVE NEGATIVE; Benzodiazepines Screen,Urine PRESUMPTIVE NEGATIVE; Cannabinoid Screen,Urine PRESUMPTIVE NEGATIVE; Cocaine Screen,Urine PRESUMPTIVE NEGATIVE; Methadone Screen,Urine PRESUMPTIVE NEGATIVE; Opiate Screen,Urine PRESUMPTIVE NEGATIVE
[2019-04-03 21:12] LABS: Bilirubin,Urine NEG (Negative); Blood,Urine SM (Negative); Color,Urine Yellow (Yellow); Protein,Urine <15 mg/dL mg/dL (Negative)
[2019-04-03] MEDS ORDERED: CARDIZEM PO ONE (22:00)
[2019-04-03] MEDS: KENALOG TP SCH (22:04)
[2019-04-03] MEDS: SODIUM CHLORIDE FLUSH SYRINGE 10 ML IV SCH (22:46)
[2019-04-03] MEDS: CATAPRES PO SCH (22:46)
[2019-04-04] MEDS: LASIX IV SCH ×2 (05:17→19:14)
[2019-04-04 06:19] LABS: Basophils # (Auto) 0.1 K/mm3 (0.0-0.1); Basophils % (Auto) 0.8 % (0.0-1.8); Eosinophils # (Auto) 0.1 K/mm3 (0.0-0.4); Eosinophils % (Auto) 0.9 % (0.0-4.3); Hematocrit 32.6 % (35.5-45.6); Hemoglobin 10.5 gm/dl (11.8-15.2); Lymphocytes # (Auto) 1.3 K/mm3 (1.2-5.4); Lymphocytes % (Auto) 19.6 % (13.4-35.0); Mean Corpuscular HGB Conc 32 % (32-34); Mean Corpuscular Volume 88 fl (84-94); Monocytes # (Auto) 0.7 K/mm3 (0.0-0.8); Monocytes % (Auto) 10.1 % (0.0-7.3); Platelet Count 140 K/mm3 (140-440); Red Blood Count 3.72 M/mm3 (3.65-5.03); Red Cell Distribution Width 19.1 % (13.2-15.2)
[2019-04-04 06:35] LABS: Alanine Aminotransferase 115 units/L (7-56); Albumin 2.4 g/dL (3.9-5); BUN/Creatinine Ratio 15; Blood Urea Nitrogen 18 mg/dL (9-20); Calcium 7.5 mg/dL (8.4-10.2); Hemolysis Index 4
[2019-04-04] MEDS: KENALOG TP SCH ×3 (10:47→22:30)
[2019-04-04] MEDS: LOPRESSOR PO SCH ×2 (10:47→22:30)
[2019-04-04] MEDS: FOLVITE PO SCH (10:48)
[2019-04-04] MEDS: SODIUM CHLORIDE FLUSH SYRINGE 10 ML IV SCH ×2 (10:49→22:29)
--- NOTE | 2019-04-04 11:16 | Consultation ---
History of Present Illness Consult date: 04/04/19 Consult reason: congestive heart failure History of present illness: 53 YO Male with h/o alcoholism, Obesity, HTN, Obesity, SLE, and paroxysmal a trial fibrillation/flutter who presented to hospital with worsening edema and dyspnea. Pt states that he has experienced shortness of breath, and leg swelling, and abdominal distention over the past 2 weeks with progressively worsening symptoms over the past 1 week. He has also noticed orthopnea and PND. He reports he completely stopped drinking alcohol 3 weeks ago. Of note, he was previously anticoagulated with eliquis and reports he has still been taking at home although it is not listed in his home medications. His INR level and liver enzymes are currently elevated presumably due to liver disease. His last echocardiogram in our office on 06/23/2018 revealed EF of 50-55%, biatrial enlargement. ECG is consistent with Atrial flutter, RBBB Past History Past Medical History: atrial fib, hypertension, other (SLE,OBesity Hypoventilation,ETOH Dependence, Obesity) Past Surgical History: No surgical history, Other (reviewed) Social history: single, smoking. denies: alcohol abuse, prescription drug abuse Family history: hypertension Medications and Allergies Allergies Allergy/AdvReac Type Severity Reaction Status Date / Time indomethacin [From Indocin] Allergy Unknown Verified 11/22/15 18:37 indomethacin sodium Allergy Unknown Verified 11/22/15 18:37 [From Indocin] Home Medications Medication Instructions Recorded Confirmed Last Taken Type cloNIDine [Catapres] 0.1 mg PO BID 12/30/13 04/03/19 Unknown History Triamcinolone 0.1% [Kenalog 0.1% 1 applic TP TID #30 tube 09/04/16 04/03/19 Unknown Rx CREAM] Furosemide [Lasix] 20 mg PO QDAY 04/03/19 04/03/19 Unknown History Losartan [Cozaar] 50 mg PO QDAY 04/03/19 04/03/19 Unknown History Active Meds: Active Medications Acetaminophen (Tylenol) 650 mg PO Q4H PRN PRN Reason: Pain MILD(1-3)/Fever >100.5/GARCIA Albuterol (Proventil) 2.5 mg IH Q4H PRN PRN Reason: Shortness Of Breath Clonidine HCl (Catapres) 0.1 mg PO BID [facility] Last Admin: 04/03/19 22:46 Dose: 0.1 mg Documented by: Folic Acid (Folvite) 1 mg PO QDAY [facility] Last Admin: 04/04/19 10:48 Dose: 1 mg Documented by: Furosemide (Lasix) 20 mg IV BID@0600,1800 [facility] Last Admin: 04/04/19 05:17 Dose: 20 mg Documented by: Lorazepam (Ativan) 2 mg IV Q1H PRN PRN Reason: CIWA-Ar 8-15 Last Admin: 04/03/19 18:03 Dose: 2 mg Documented by: Losartan Potassium (Cozaar) 50 mg PO QDAY [facility] Metoprolol Tartrate (Lopressor) 50 mg PO BID [facility] Last Admin: 04/04/19 10:47 Dose: 50 mg Documented by: Ondansetron HCl (Zofran) 4 mg IV Q8H PRN PRN Reason: Nausea And Vomiting Sodium Chloride (Sodium Chloride Flush Syringe 10 Ml) 10 ml IV BID [facility] Last Admin: 04/04/19 10:49 Dose: 10 ml Documented by: Sodium Chloride (Sodium Chloride Flush Syringe 10 Ml) 10 ml IV PRN PRN PRN Reason: LINE FLUSH Triamcinolone Acetonide (Kenalog) 1 applic TP TID [facility] Last Admin: 04/04/19 10:47 Dose: 1 applic Documented by: Review of Systems All systems: negative (per hpi) Physical Examination Vital Signs Temp Pulse Resp BP Pulse Ox 98.8 F 143 H 20 143/104 97 04/03/19 14:09 04/03/19 14:09 04/03/19 14:09 04/03/19 14:09 04/03/19 14:09 General appearance: no acute distress Neck: Positive: neck supple Cardiac: Positive: Regular Rhythm, Systolic Murmur (II/ HSM at LSB), Tachycardia Lungs: Positive: clear to auscultation Abdomen: Positive: Soft, Active Bowel Sounds, Distended Extremities: Present: +3 Edema Results 04/04/19 04:57 04/04/19 04:57 Cardiac Enzymes 04/03/19 04/04/19 Range/Units 14:21 04:57 AST 366 H 310 H (5-40) units/L Coagulation 04/03/19 Range/Units 20:33 PT 22.3 H (12.2-14.9) Sec. INR 2.00 H (0.87-1.13) CBC 04/03/19 04/04/19 Range/Units 14:21 04:57 WBC 8.2 6.7 (4.5-11.0) K/mm3 RBC 3.81 3.72 (3.65-5.03) M/mm3 Hgb 10.7 L 10.5 L (11.8-15.2) gm/dl Hct 33.2 L 32.6 L (35.5-45.6) % Plt Count 145 140 (140-440) K/mm3 Lymph # 1.0 L 1.3 (1.2-5.4) K/mm3 [place] # 0.8 0.7 (0.0-0.8) K/mm3 Eos # 0.0 0.1 (0.0-0.4) K/mm3 Baso # 0.0 0.1 (0.0-0.1) K/mm3 Comprehensive Metabolic Panel 04/03/19 04/03/19 04/04/19 Range/Units 14:21 18:11 04:57 Sodium 134 L 136 L (137-145) mmol/L Potassium 3.4 L 3.5 L (3.6-5.0) mmol/L Chloride 100.2 101.7 (98-107) mmol/L Carbon Dioxide 20 L 23 (22-30) mmol/L BUN 19 18 (9-20) mg/dL Creatinine 1.1 1.2 (0.8-1.5) mg/dL Glucose 105 H 101 H (75-100) mg/dL Calcium 7.9 L 7.5 L (8.4-10.2) mg/dL Direct Bilirubin 3.1 H (0-0.2) mg/dL Indirect Bilirubin 1.9 mg/dL AST 366 H 310 H (5-40) units/L ALT 137 H 115 H (7-56) units/L Alkaline Phosphatase 176 H 157 H (35-129) units/L Total Protein 7.8 7.2 (6.3-8.2) g/dL Albumin 2.7 L 2.4 L (3.9-5) g/dL Assessment and Plan Acute heart failure: Preserved EF based on last echo in 06/2018 Alcoholism: Pt reports quitting about 3 weeks ago. Atrial flutter Coagulopathy: Recently on eliquis Alcoholic liver disease H/O SLE Obesity Recommend: Continue diuresis and monitor electrolytes Continue metoprolol for rate control - will titrate as tolerated. Repeat echocardiogram Will defer anticoagulation for now till liver disease is further evaluated. Treatment of alcoholism and alcoholic liver disease per primary service
[2019-04-04] MEDS: COZAAR PO SCH (11:24)
[2019-04-04] MEDS: CATAPRES PO SCH ×2 (11:25→22:30)
--- NOTE | 2019-04-04 12:22 | Progress Note ---
Assessment and Plan Assessment and plan: Acute heart failure with preserved EF (HFpEF). Continue diuresis per cardiology. Alcoholism. Follow-up with outpatient resources. H/O paroxysmal atrial fibrillation/flutter. Follow-up echocardiogram. Coagulopathy. Hold anticoagulation per cardiology. Alcoholic liver disease. Continue supportive care. Monitor for withdrawal and initiate CIWA as needed H/O SLE. Obesity. History Interval history: No new issues overnight Hospitalist Physical - Constitutional Vitals: Temp Pulse Resp BP Pulse Ox 98.0 F 68 18 104/73 98 04/04/19 04:08 04/04/19 11:25 04/04/19 04:08 04/04/19 11:25 04/04/19 04:08 General appearance: Present: mild distress, obese - EENT Eyes: Present: PERRL, EOM intact ENT: hearing intact, clear oral mucosa, dentition normal - Neck Neck: Present: supple, normal ROM - Respiratory Respiratory effort: normal Respiratory: bilateral: CTA - Cardiovascular Rhythm: regular Heart Sounds: Present: S1 & S2. Absent: gallop, rub - Extremities Extremities: no ischemia, No edema, Full ROM - Abdominal General gastrointestinal: soft, non-tender, non-distended, normal bowel sounds - Integumentary Integumentary: Present: clear, warm, dry - Neurologic Neurologic: CNII-XII intact, moves all extremities Results - Labs CBC & Chem 7: 04/04/19 04:57 04/04/19 04:57 Labs: Laboratory Last Values WBC 6.7 K/mm3 (4.5-11.0) 04/04/19 04:57 RBC 3.72 M/mm3 (3.65-5.03) 04/04/19 04:57 Hgb 10.5 gm/dl (11.8-15.2) L 04/04/19 04:57 Hct 32.6 % (35.5-45.6) L 04/04/19 04:57 MCV 88 fl (84-94) 04/04/19 04:57 MCH 28 pg (28-32) 04/04/19 04:57 MCHC 32 % (32-34) 04/04/19 04:57 RDW 19.1 % (13.2-15.2) H 04/04/19 04:57 Plt Count 140 K/mm3 (140-440) 04/04/19 04:57 Lymph % (Auto) 19.6 % (13.4-35.0) 04/04/19 04:57 [place] % (Auto) 10.1 % (0.0-7.3) H 04/04/19 04:57 Eos % (Auto) 0.9 % (0.0-4.3) 04/04/19 04:57 Baso % (Auto) 0.8 % (0.0-1.8) 04/04/19 04:57 Lymph # 1.3 K/mm3 (1.2-5.4) 04/04/19 04:57 [place] # 0.7 K/mm3 (0.0-0.8) 04/04/19 04:57 Eos # 0.1 K/mm3 (0.0-0.4) 04/04/19 04:57 Baso # 0.1 K/mm3 (0.0-0.1) 04/04/19 04:57 Seg Neutrophils % 68.6 % (40.0-70.0) 04/04/19 04:57 Seg Neutrophils # 4.6 K/mm3 (1.8-7.7) 04/04/19 04:57 PT 22.3 Sec. (12.2-14.9) H 04/03/19 20:33 INR 2.00 (0.87-1.13) H 04/03/19 20:33 Sodium 136 mmol/L (137-145) L 04/04/19 04:57 Potassium 3.5 mmol/L (3.6-5.0) L 04/04/19 04:57 Chloride 101.7 mmol/L (98-107) 04/04/19 04:57 Carbon Dioxide 23 mmol/L (22-30) 04/04/19 04:57 15 mmol/L 04/04/19 04:57 BUN 18 mg/dL (9-20) 04/04/19 04:57 1.2 mg/dL (0.8-1.5) 04/04/19 04:57 Estimated GFR > 60 ml/min 04/04/19 04:57 15 % 04/04/19 04:57 Glucose 101 mg/dL (75-100) H 04/04/19 04:57 Calcium 7.5 mg/dL (8.4-10.2) L 04/04/19 04:57 3.50 mg/dL (0.1-1.2) H 04/04/19 04:57 3.1 mg/dL (0-0.2) H 04/03/19 18:11 1.9 mg/dL 04/03/19 18:11 AST 310 units/L (5-40) H 04/04/19 04:57 ALT 115 units/L (7-56) H 04/04/19 04:57 157 units/L (35-129) H 04/04/19 04:57 < 0.010 ng/mL (0.00-0.029) 04/03/19 14:21 NT-Pro-B Natriuret Pep 2712 pg/mL (0-900) H 04/03/19 14:21 7.2 g/dL (6.3-8.2) 04/04/19 04:57 2.4 g/dL (3.9-5) L 04/04/19 04:57 0.5 % 04/04/19 04:57 TSH 4.490 mlU/mL (0.270-4.200) H 04/03/19 14:21 Free T4 1.36 ng/dL (0.76-1.46) 04/03/19 14:21 Yellow (Yellow) 04/03/19 20:16 Clear (Clear) 04/03/19 20:16 7.0 (5.0-7.0) 04/03/19 20:16 Ur Specific [place] 1.011 (1.003-1.030) 04/03/19 20:16 <15 mg/dl mg/dL (Negative) 04/03/19 20:16 Neg mg/dL (Negative) 04/03/19 20:16 Neg mg/dL (Negative) 04/03/19 20:16 Sm (Negative) 04/03/19 20:16 Neg (Negative) 04/03/19 20:16 Neg (Negative) 04/03/19 20:16 4.0 mg/dL (<2.0) 04/03/19 20:16 Ur Leukocyte Esterase Neg (Negative) 04/03/19 20:16 0.0 /HPF (0.0-6.0) 04/03/19 20:16 1.0 /HPF (0.0-6.0) 04/03/19 20:16 Presumptive negative 04/03/19 20:16 Presumptive negative 04/03/19 20:16 Ur Barbiturates Screen Presumptive negative 04/03/19 20:16 Ur Phencyclidine Scrn Presumptive negative 04/03/19 20:16 Ur Amphetamines Screen Presumptive negative 04/03/19 20:16 U Benzodiazepines Scrn Presumptive negative 04/03/19 20:16 Presumptive negative 04/03/19 20:16 U Marijuana (THC) Screen Presumptive negative 04/03/19 20:16 Disclamer 04/03/19 20:16 Plasma/Serum Alcohol < 0.01 % (0-0.07) 04/03/19 14:21 Active Medications - Current Medications Current Medications: Generic Name Dose Route Start Last Admin Trade Name Freq PRN Reason Stop Dose Admin Acetaminophen 650 mg 04/03/19 17:10 Tylenol PO Q4H PRN Pain MILD(1-3)/Fever >100.5/GARCIA Albuterol 2.5 mg 04/03/19 17:10 Proventil IH Q4H PRN Shortness Of Breath Clonidine HCl 0.1 mg 04/03/19 22:00 04/04/19 11:25 Catapres PO Not Given BID SLOAN Folic Acid 1 mg 04/03/19 18:00 04/04/19 10:48 Folvite PO 1 mg QDAY SLOAN Administration Furosemide 20 mg 04/03/19 18:00 04/04/19 05:17 Lasix IV 20 mg BID@0600,1800 SLOAN Administration Lorazepam 2 mg 04/03/19 17:09 04/03/19 18:03 Ativan IV 2 mg Q1H PRN Administration CIWA-Ar 8-15 Losartan Potassium 50 mg 04/04/19 10:00 04/04/19 11:24 Cozaar PO Not Given QDAY SLOAN Metoprolol Tartrate 50 mg 04/04/19 10:00 04/04/19 10:47 Lopressor PO 50 mg BID SLOAN Administration Ondansetron HCl 4 mg 04/03/19 17:10 Zofran IV Q8H PRN Nausea And Vomiting Sodium Chloride 10 ml 04/03/19 22:00 04/04/19 10:49 Sodium Chloride Flush Syringe 10 Ml IV 10 ml BID SLOAN Administration Sodium Chloride 10 ml 04/03/19 17:10 Sodium Chloride Flush Syringe 10 Ml IV PRN PRN LINE FLUSH Triamcinolone Acetonide 1 applic 04/03/19 20:00 04/04/19 10:47 Kenalog TP 1 applic TID SLOAN Administration
[2019-04-04] MEDS: TYLENOL PO PRN (22:17)
[2019-04-05] MEDS: LASIX IV SCH ×2 (06:39→17:38)
[2019-04-05] MEDS: KENALOG TP SCH ×4 (08:42→22:28)
[2019-04-05] MEDS: COZAAR PO SCH (09:42)
[2019-04-05] MEDS: FOLVITE PO SCH (09:43)
[2019-04-05] MEDS: CATAPRES PO SCH ×2 (09:43→21:47)
[2019-04-05] MEDS: SODIUM CHLORIDE FLUSH SYRINGE 10 ML IV SCH ×2 (09:44→22:28)
[2019-04-05] MEDS: LOPRESSOR PO SCH ×2 (09:44→21:47)
--- NOTE | 2019-04-05 11:27 | Progress Note ---
Assessment and Plan Acute systolic heart failure Alcoholism: Pt reports quitting about 3 weeks ago. Atrial flutter. persists Coagulopathy: Recently on eliquis Alcoholic liver disease H/O SLE Obesity An echocardiogram revealed a 4 chamber dilated cardiomyopathy with a severely decreased left ventricular systolic function, EF 15-20%. Recommend: Anticoagulation for atrial flutter is deferred untill liver disease is further evaluated. Treatment of alcoholism and alcoholic liver disease per primary service. Obtain prior records from [facility] for review. Medical therapy for systolic heart failure and dilated cardiomyopathy including a trial of IV milrinone for 72hrs. Subjective Date of service: 04/05/19 Interval history: Patient is resting in bed. Still with shortness of breath with minimal exertion. Objective Vital Signs Temp Pulse Resp BP Pulse Ox 04/05/19 10:00 65 04/05/19 09:44 65 145/100 04/05/19 09:43 65 145/100 04/05/19 09:42 65 145/100 04/05/19 03:19 97.4 F L 66 16 113/86 99 04/04/19 23:51 60 20 117/60 94 04/04/19 23:47 97.5 F L 04/04/19 23:45 53 L 20 95/59 100 04/04/19 20:23 97.8 F 71 18 111/70 92 04/04/19 17:05 81/58 04/04/19 11:25 67 104/73 98 04/04/19 11:24 68 104/73 - Physical Examination General: No Apparent Distress HEENT: Positive: PERRL Neck: Positive: neck supple Cardiac: Positive: irregularly irregular Lungs: Positive: Decreased Breath Sounds Extremities: Present: +3 Edema
--- NOTE | 2019-04-05 11:54 | Progress Note ---
Assessment and Plan Assessment and plan: Acute heart failure with preserved EF (HFpEF). Continue diuresis per cardiology. Echocardiogram reveals severe four-chamber dilated cardiomyopathy. Global left ventricular systolic function is severely decreased with EF 15-20%. Moderate concentric left ventricular hypertrophy. Alcoholism. Follow-up with outpatient resources. H/O paroxysmal atrial fibrillation/flutter. Continue metoprolol twice a day. Coagulopathy. Hold anticoagulation per cardiology because of liver disease. Alcoholic liver disease. Continue supportive care. Monitor for withdrawal and initiate CIWA as needed H/O SLE. Obesity. History Interval history: No new issues overnight Hospitalist Physical - Constitutional Vitals: Temp Pulse Resp BP Pulse Ox 97.4 F L 65 16 145/100 99 04/05/19 03:19 04/05/19 10:00 04/05/19 03:19 04/05/19 09:44 04/05/19 03:19 General appearance: Present: no acute distress - EENT Eyes: Present: PERRL, EOM intact ENT: hearing intact, clear oral mucosa, dentition normal - Neck Neck: Present: supple, normal ROM - Respiratory Respiratory effort: normal Respiratory: bilateral: CTA - Cardiovascular Rhythm: regular Heart Sounds: Present: S1 & S2. Absent: gallop, rub - Extremities Extremities: no ischemia, No edema, Full ROM - Abdominal General gastrointestinal: soft, non-tender, non-distended, normal bowel sounds - Integumentary Integumentary: Present: clear, warm, dry - Neurologic Neurologic: CNII-XII intact, moves all extremities Results - Labs CBC & Chem 7: 04/04/19 04:57 04/04/19 04:57 Labs: Laboratory Last Values WBC 6.7 K/mm3 (4.5-11.0) 04/04/19 04:57 RBC 3.72 M/mm3 (3.65-5.03) 04/04/19 04:57 Hgb 10.5 gm/dl (11.8-15.2) L 04/04/19 04:57 Hct 32.6 % (35.5-45.6) L 04/04/19 04:57 MCV 88 fl (84-94) 04/04/19 04:57 MCH 28 pg (28-32) 04/04/19 04:57 MCHC 32 % (32-34) 04/04/19 04:57 RDW 19.1 % (13.2-15.2) H 04/04/19 04:57 Plt Count 140 K/mm3 (140-440) 04/04/19 04:57 Lymph % (Auto) 19.6 % (13.4-35.0) 04/04/19 04:57 [place] % (Auto) 10.1 % (0.0-7.3) H 04/04/19 04:57 Eos % (Auto) 0.9 % (0.0-4.3) 04/04/19 04:57 Baso % (Auto) 0.8 % (0.0-1.8) 04/04/19 04:57 Lymph # 1.3 K/mm3 (1.2-5.4) 04/04/19 04:57 [place] # 0.7 K/mm3 (0.0-0.8) 04/04/19 04:57 Eos # 0.1 K/mm3 (0.0-0.4) 04/04/19 04:57 Baso # 0.1 K/mm3 (0.0-0.1) 04/04/19 04:57 Seg Neutrophils % 68.6 % (40.0-70.0) 04/04/19 04:57 Seg Neutrophils # 4.6 K/mm3 (1.8-7.7) 04/04/19 04:57 PT 22.3 Sec. (12.2-14.9) H 04/03/19 20:33 INR 2.00 (0.87-1.13) H 04/03/19 20:33 Sodium 136 mmol/L (137-145) L 04/04/19 04:57 Potassium 3.5 mmol/L (3.6-5.0) L 04/04/19 04:57 Chloride 101.7 mmol/L (98-107) 04/04/19 04:57 Carbon Dioxide 23 mmol/L (22-30) 04/04/19 04:57 15 mmol/L 04/04/19 04:57 BUN 18 mg/dL (9-20) 04/04/19 04:57 1.2 mg/dL (0.8-1.5) 04/04/19 04:57 Estimated GFR > 60 ml/min 04/04/19 04:57 15 % 04/04/19 04:57 Glucose 101 mg/dL (75-100) H 04/04/19 04:57 Calcium 7.5 mg/dL (8.4-10.2) L 04/04/19 04:57 3.50 mg/dL (0.1-1.2) H 04/04/19 04:57 3.1 mg/dL (0-0.2) H 04/03/19 18:11 1.9 mg/dL 04/03/19 18:11 AST 310 units/L (5-40) H 04/04/19 04:57 ALT 115 units/L (7-56) H 04/04/19 04:57 157 units/L (35-129) H 04/04/19 04:57 < 0.010 ng/mL (0.00-0.029) 04/03/19 14:21 NT-Pro-B Natriuret Pep 2712 pg/mL (0-900) H 04/03/19 14:21 7.2 g/dL (6.3-8.2) 04/04/19 04:57 2.4 g/dL (3.9-5) L 04/04/19 04:57 0.5 % 04/04/19 04:57 TSH 4.490 mlU/mL (0.270-4.200) H 04/03/19 14:21 Free T4 1.36 ng/dL (0.76-1.46) 04/03/19 14:21 Yellow (Yellow) 04/03/19 20:16 Clear (Clear) 04/03/19 20:16 7.0 (5.0-7.0) 04/03/19 20:16 Ur Specific [place] 1.011 (1.003-1.030) 04/03/19 20:16 <15 mg/dl mg/dL (Negative) 04/03/19 20:16 Neg mg/dL (Negative) 04/03/19 20:16 Neg mg/dL (Negative) 04/03/19 20:16 Sm (Negative) 04/03/19 20:16 Neg (Negative) 04/03/19 20:16 Neg (Negative) 04/03/19 20:16 4.0 mg/dL (<2.0) 04/03/19 20:16 Ur Leukocyte Esterase Neg (Negative) 04/03/19 20:16 0.0 /HPF (0.0-6.0) 04/03/19 20:16 1.0 /HPF (0.0-6.0) 04/03/19 20:16 Presumptive negative 04/03/19 20:16 Presumptive negative 04/03/19 20:16 Ur Barbiturates Screen Presumptive negative 04/03/19 20:16 Ur Phencyclidine Scrn Presumptive negative 04/03/19 20:16 Ur Amphetamines Screen Presumptive negative 04/03/19 20:16 U Benzodiazepines Scrn Presumptive negative 04/03/19 20:16 Presumptive negative 04/03/19 20:16 U Marijuana (THC) Screen Presumptive negative 04/03/19 20:16 Disclamer 04/03/19 20:16 Plasma/Serum Alcohol < 0.01 % (0-0.07) 04/03/19 14:21 Active Medications - Current Medications Current Medications: Generic Name Dose Route Start Last Admin Trade Name Freq PRN Reason Stop Dose Admin Acetaminophen 650 mg 04/03/19 17:10 04/04/19 22:17 Tylenol PO 650 mg Q4H PRN Administration Pain MILD(1-3)/Fever >100.5/GARCIA Albuterol 2.5 mg 04/03/19 17:10 Proventil IH Q4H PRN Shortness Of Breath Clonidine HCl 0.1 mg 04/03/19 22:00 04/05/19 09:43 Catapres PO 0.1 mg BID SLOAN Administration Folic Acid 1 mg 04/03/19 18:00 04/05/19 09:43 Folvite PO 1 mg QDAY SLOAN Administration Furosemide 20 mg 04/03/19 18:00 04/05/19 06:39 Lasix IV 20 mg BID@0600,1800 SLOAN Administration Lorazepam 2 mg 04/03/19 17:09 04/03/19 18:03 Ativan IV 2 mg Q1H PRN Administration CIWA-Ar 8-15 Losartan Potassium 50 mg 04/04/19 10:00 04/05/19 09:42 Cozaar PO 50 mg QDAY SLOAN Administration Metoprolol Tartrate 50 mg 04/04/19 10:00 04/05/19 09:44 Lopressor PO 50 mg BID SLOAN Administration Ondansetron HCl 4 mg 04/03/19 17:10 Zofran IV Q8H PRN Nausea And Vomiting Sodium Chloride 10 ml 04/03/19 22:00 04/05/19 09:44 Sodium Chloride Flush Syringe 10 Ml IV 10 ml BID SLOAN Administration Sodium Chloride 10 ml 04/03/19 17:10 Sodium Chloride Flush Syringe 10 Ml IV PRN PRN LINE FLUSH Triamcinolone Acetonide 1 applic 04/03/19 20:00 04/05/19 08:42 Kenalog TP Not Given TID SLOAN
[2019-04-05] MEDS: MILRINONE-D5W 20 MG/100 ML 20 MG/100 ML BAG IV SCH ×2 (13:57→21:43)
[2019-04-05] MEDS: TYLENOL PO PRN (21:52)
[2019-04-06] MEDS: MILRINONE-D5W 20 MG/100 ML 20 MG/100 ML BAG IV SCH ×3 (05:18→20:26)
[2019-04-06] MEDS: LASIX IV SCH ×2 (05:18→17:10)
[2019-04-06 07:46] LABS: Basophils # (Auto) 0.1 K/mm3 (0.0-0.1); Basophils % (Auto) 0.7 % (0.0-1.8); Eosinophils # (Auto) 0.1 K/mm3 (0.0-0.4); Eosinophils % (Auto) 1.4 % (0.0-4.3); Hematocrit 32.6 % (35.5-45.6); Hemoglobin 10.7 gm/dl (11.8-15.2); Lymphocytes # (Auto) 1.1 K/mm3 (1.2-5.4); Lymphocytes % (Auto) 15.3 % (13.4-35.0); Mean Corpuscular HGB Conc 33 % (32-34); Mean Corpuscular Volume 87 fl (84-94); Monocytes # (Auto) 0.9 K/mm3 (0.0-0.8); Monocytes % (Auto) 12.7 % (0.0-7.3); Platelet Count 116 K/mm3 (140-440); Red Blood Count 3.73 M/mm3 (3.65-5.03); Red Cell Distribution Width 19.6 % (13.2-15.2)
[2019-04-06 08:05] LABS: BUN/Creatinine Ratio 23; Blood Urea Nitrogen 25 mg/dL (9-20); Calcium 8.1 mg/dL (8.4-10.2); Hemolysis Index 19
[2019-04-06 09:02] LABS: Albumin 2.6 g/dL (3.9-5); Bilirubin,Direct 2.2 mg/dL (0-0.2)
--- NOTE | 2019-04-06 09:33 | Progress Note ---
Assessment and Plan Assessment and plan: Acute heart failure with preserved EF (HFpEF). Continue diuresis per cardiology. Echocardiogram reveals severe four-chamber dilated cardiomyopathy. Global left ventricular systolic function is severely decreased with EF 15-20%. Moderate concentric left ventricular hypertrophy. Alcoholism. Follow-up with outpatient resources. H/O paroxysmal atrial fibrillation/flutter. Continue metoprolol twice a day. Coagulopathy. Hold anticoagulation per cardiology because of liver disease. Alcoholic liver disease. Continue supportive care. Monitor for withdrawal and initiate CIWA as needed Hyponatremia. repeat BMP in am Bilateral leg pains Obtain Doppler Us lower ext Thronbocytopenia Repeat platelet count in am H/O SLE. Obesity. Hospitalist Physical - Physical exam Narrative exam: Gen: Not in acute distress, lying in bed, obese HEENT: Normocephalic, atraumatic Neck: supple, no JVD Heart: S1 and S2 reg, no murmurs, rubs or gallop Lungs: Clear, no crackles or wheeze Abd: soft, non tender, non distended, normal BS Ext: Bilateral lower ext edema, no clubbing, no cyanosis Neuro:awake,alert, Oriented X 3. No focal signs Psych: Normal mood - Constitutional Vitals: Temp Pulse Resp BP Pulse Ox 98.7 F 68 18 117/83 98 04/06/19 07:50 04/06/19 03:13 04/06/19 07:50 04/06/19 07:50 04/06/19 03:13 General appearance: Present: no acute distress Results - Labs CBC & Chem 7: 04/06/19 07:03 04/06/19 07:03 Labs: Laboratory Last Values WBC 6.9 K/mm3 (4.5-11.0) 04/06/19 07:03 RBC 3.73 M/mm3 (3.65-5.03) 04/06/19 07:03 Hgb 10.7 gm/dl (11.8-15.2) L 04/06/19 07:03 Hct 32.6 % (35.5-45.6) L 04/06/19 07:03 MCV 87 fl (84-94) 04/06/19 07:03 MCH 29 pg (28-32) 04/06/19 07:03 MCHC 33 % (32-34) 04/06/19 07:03 RDW 19.6 % (13.2-15.2) H 04/06/19 07:03 Plt Count 116 K/mm3 (140-440) L 04/06/19 07:03 Lymph % (Auto) 15.3 % (13.4-35.0) 04/06/19 07:03 [place] % (Auto) 12.7 % (0.0-7.3) H 04/06/19 07:03 Eos % (Auto) 1.4 % (0.0-4.3) 04/06/19 07:03 Baso % (Auto) 0.7 % (0.0-1.8) 04/06/19 07:03 Lymph # 1.1 K/mm3 (1.2-5.4) L 04/06/19 07:03 [place] # 0.9 K/mm3 (0.0-0.8) H 04/06/19 07:03 Eos # 0.1 K/mm3 (0.0-0.4) 04/06/19 07:03 Baso # 0.1 K/mm3 (0.0-0.1) 04/06/19 07:03 Seg Neutrophils % 69.9 % (40.0-70.0) 04/06/19 07:03 Seg Neutrophils # 4.8 K/mm3 (1.8-7.7) 04/06/19 07:03 PT 22.3 Sec. (12.2-14.9) H 04/03/19 20:33 INR 2.00 (0.87-1.13) H 04/03/19 20:33 Sodium 133 mmol/L (137-145) L 04/06/19 07:03 Potassium 3.7 mmol/L (3.6-5.0) 04/06/19 07:03 Chloride 100.0 mmol/L (98-107) 04/06/19 07:03 Carbon Dioxide 22 mmol/L (22-30) 04/06/19 07:03 15 mmol/L 04/06/19 07:03 BUN 25 mg/dL (9-20) H 04/06/19 07:03 1.1 mg/dL (0.8-1.5) 04/06/19 07:03 Estimated GFR > 60 ml/min 04/06/19 07:03 23 % 04/06/19 07:03 Glucose 105 mg/dL (75-100) H 04/06/19 07:03 Calcium 8.1 mg/dL (8.4-10.2) L 04/06/19 07:03 3.40 mg/dL (0.1-1.2) H 04/06/19 07:03 2.2 mg/dL (0-0.2) H 04/06/19 07:03 1.2 mg/dL 04/06/19 07:03 AST 190 units/L (5-40) H 04/06/19 07:03 ALT 93 units/L (7-56) H 04/06/19 07:03 167 units/L (35-129) H 04/06/19 07:03 < 0.010 ng/mL (0.00-0.029) 04/03/19 14:21 NT-Pro-B Natriuret Pep 2712 pg/mL (0-900) H 04/03/19 14:21 7.8 g/dL (6.3-8.2) 04/06/19 07:03 2.6 g/dL (3.9-5) L 04/06/19 07:03 0.5 % 04/06/19 07:03 TSH 4.490 mlU/mL (0.270-4.200) H 04/03/19 14:21 Free T4 1.36 ng/dL (0.76-1.46) 04/03/19 14:21 Yellow (Yellow) 04/03/19 20:16 Clear (Clear) 04/03/19 20:16 7.0 (5.0-7.0) 04/03/19 20:16 Ur Specific [place] 1.011 (1.003-1.030) 04/03/19 20:16 <15 mg/dl mg/dL (Negative) 04/03/19 20:16 Neg mg/dL (Negative) 04/03/19 20:16 Neg mg/dL (Negative) 04/03/19 20:16 Sm (Negative) 04/03/19 20:16 Neg (Negative) 04/03/19 20:16 Neg (Negative) 04/03/19 20:16 4.0 mg/dL (<2.0) 04/03/19 20:16 Ur Leukocyte Esterase Neg (Negative) 04/03/19 20:16 0.0 /HPF (0.0-6.0) 04/03/19 20:16 1.0 /HPF (0.0-6.0) 04/03/19 20:16 Presumptive negative 04/03/19 20:16 Presumptive negative 04/03/19 20:16 Ur Barbiturates Screen Presumptive negative 04/03/19 20:16 Ur Phencyclidine Scrn Presumptive negative 04/03/19 20:16 Ur Amphetamines Screen Presumptive negative 04/03/19 20:16 U Benzodiazepines Scrn Presumptive negative 04/03/19 20:16 Presumptive negative 04/03/19 20:16 U Marijuana (THC) Screen Presumptive negative 04/03/19 20:16 Disclamer 04/03/19 20:16 Plasma/Serum Alcohol < 0.01 % (0-0.07) 04/03/19 14:21 Active Medications - Current Medications Current Medications: Generic Name Dose Route Start Last Admin Trade Name Freq PRN Reason Stop Dose Admin Acetaminophen 650 mg 04/03/19 17:10 04/05/19 21:52 Tylenol PO 650 mg Q4H PRN Administration Pain MILD(1-3)/Fever >100.5/GARCIA Albuterol 2.5 mg 04/03/19 17:10 Proventil IH Q4H PRN Shortness Of Breath Clonidine HCl 0.1 mg 04/03/19 22:00 04/05/19 21:47 Catapres PO 0.1 mg BID SLOAN Administration Folic Acid 1 mg 04/03/19 18:00 04/05/19 09:43 Folvite PO 1 mg QDAY SLOAN Administration Furosemide 40 mg 04/05/19 18:00 04/06/19 05:18 Lasix IV 40 mg 0600,1800 SLOAN Administration Milrinone Lactate/Dextrose 20 mg in 100 mls @ 12.285 mls/hr 04/05/19 14:00 04/06/19 05:18 Milrinone-D5w 20 Mg/100 Ml IV 04/08/19 13:59 0.375 mcg/kg/min TITR SLOAN 12.285 mls/hr Administration 0.375 MCG/KG/MIN Lorazepam 2 mg 04/03/19 17:09 04/03/19 18:03 Ativan IV 2 mg Q1H PRN Administration CIWA-Ar 8-15 Losartan Potassium 50 mg 04/04/19 10:00 04/05/19 09:42 Cozaar PO 50 mg QDAY SLOAN Administration Metoprolol Tartrate 50 mg 04/04/19 10:00 04/05/19 21:47 Lopressor PO 50 mg BID SLOAN Administration Ondansetron HCl 4 mg 04/03/19 17:10 Zofran IV Q8H PRN Nausea And Vomiting Sodium Chloride 10 ml 04/03/19 22:00 04/05/19 22:28 Sodium Chloride Flush Syringe 10 Ml IV 10 ml BID SLOAN Administration Sodium Chloride 10 ml 04/03/19 17:10 Sodium Chloride Flush Syringe 10 Ml IV PRN PRN LINE FLUSH Triamcinolone Acetonide 1 applic 04/03/19 20:00 04/05/19 22:28 Kenalog TP Not Given TID SLOAN
[2019-04-06] MEDS: COZAAR PO SCH (09:54)
[2019-04-06] MEDS: CATAPRES PO SCH ×2 (09:54→22:00)
[2019-04-06] MEDS: KENALOG TP SCH ×3 (09:55→22:02)
[2019-04-06] MEDS: FOLVITE PO SCH (09:55)
[2019-04-06] MEDS: LOPRESSOR PO SCH ×2 (09:56→22:00)
[2019-04-06] MEDS: SODIUM CHLORIDE FLUSH SYRINGE 10 ML IV SCH ×2 (09:56→22:07)
--- NOTE | 2019-04-06 10:29 | Progress Note ---
Assessment and Plan Acute systolic heart failure Alcoholism: Pt reports quitting about 3 weeks ago. Atrial flutter. persists Coagulopathy: Recently on eliquis Alcoholic liver disease H/O SLE Obesity An echocardiogram revealed severe dilated cardiomyopathy, left ventricular ejection fraction 15-20%. There is dilation of the right heart chambers, flattening of the interventricular septum, dilated IVC, all suggestive of chronic cor pulmonale. Recommend: Anticoagulation for atrial flutter is deferred until liver disease is further evaluated. Treatment of alcoholism and alcoholic liver disease per primary service and gasteroenterology. Sodium/fluid restriction. Continue aggressive medical therapy for systolic heart failure and dilated cardiomyopathy including a trial of IV milrinone. Subjective Date of service: 04/06/19 Interval history: IV milrinone continues. Patient admits he is diuresing well. Objective Vital Signs Temp Pulse Resp BP Pulse Ox 04/06/19 09:56 67 117/79 99 04/06/19 09:54 67 117/79 04/06/19 07:50 98.7 F 18 117/83 04/06/19 03:13 97.5 F L 68 20 124/74 98 04/05/19 23:34 16 04/05/19 22:57 97.8 F 64 126/77 98 04/05/19 20:31 98 04/05/19 20:29 69 04/05/19 19:08 98.2 F 69 16 130/69 100 04/05/19 17:43 68 114/77 55 L 04/05/19 15:58 69 18 130/78 100 04/05/19 12:25 97.4 F L 62 18 129/92 90 04/05/19 12:00 66 - Physical Examination General: No Apparent Distress HEENT: Positive: PERRL Neck: Positive: neck supple Cardiac: Positive: irregularly irregular Lungs: Positive: Decreased Breath Sounds Neuro: Positive: Grossly Intact Extremities: Present: +2 Edema - Labs and Meds Cardiac Enzymes 04/06/19 Range/Units 07:03 AST 190 H (5-40) units/L CBC 04/06/19 Range/Units 07:03 WBC 6.9 (4.5-11.0) K/mm3 RBC 3.73 (3.65-5.03) M/mm3 Hgb 10.7 L (11.8-15.2) gm/dl Hct 32.6 L (35.5-45.6) % Plt Count 116 L (140-440) K/mm3 Lymph # 1.1 L (1.2-5.4) K/mm3 [place] # 0.9 H (0.0-0.8) K/mm3 Eos # 0.1 (0.0-0.4) K/mm3 Baso # 0.1 (0.0-0.1) K/mm3 Comprehensive Metabolic Panel 04/06/19 04/06/19 Range/Units 07:03 07:03 Sodium 133 L (137-145) mmol/L Potassium 3.7 (3.6-5.0) mmol/L Chloride 100.0 (98-107) mmol/L Carbon Dioxide 22 (22-30) mmol/L BUN 25 H (9-20) mg/dL Creatinine 1.1 (0.8-1.5) mg/dL Glucose 105 H (75-100) mg/dL Calcium 8.1 L (8.4-10.2) mg/dL Direct Bilirubin 2.2 H (0-0.2) mg/dL Indirect Bilirubin 1.2 mg/dL AST 190 H (5-40) units/L ALT 93 H (7-56) units/L Alkaline Phosphatase 167 H (35-129) units/L Total Protein 7.8 (6.3-8.2) g/dL Albumin 2.6 L (3.9-5) g/dL
[2019-04-06] MEDS: NORCO 5/325 PO PRN (17:10)
[2019-04-07] MEDS: MILRINONE-D5W 20 MG/100 ML 20 MG/100 ML BAG IV SCH ×3 (03:27→19:17)
[2019-04-07] MEDS: LASIX IV SCH ×2 (05:46→17:36)
[2019-04-07] MEDS: NORCO 5/325 PO PRN ×3 (05:50→22:04)
[2019-04-07 06:43] LABS: Hematocrit 31.6 % (35.5-45.6); Hemoglobin 10.3 gm/dl (11.8-15.2); Mean Corpuscular HGB Conc 33 % (32-34); Mean Corpuscular Volume 88 fl (84-94); Platelet Count 109 K/mm3 (140-440); Red Blood Count 3.61 M/mm3 (3.65-5.03); Red Cell Distribution Width 19.4 % (13.2-15.2)
[2019-04-07 06:54] LABS: INR 1.6 (0.87-1.13)
[2019-04-07 07:19] LABS: Alanine Aminotransferase 70 units/L (7-56); Albumin 2.4 g/dL (3.9-5); BUN/Creatinine Ratio 19; Blood Urea Nitrogen 21 mg/dL (9-20); Calcium 7.9 mg/dL (8.4-10.2); Hemolysis Index 4
--- NOTE | 2019-04-07 09:16 | Progress Note ---
Assessment and Plan Assessment and plan: Acute heart failure with preserved EF (HFpEF). Continue diuresis per cardiology. Echocardiogram reveals severe four-chamber dilated cardiomyopathy. Global left ventricular systolic function is severely decreased with EF 15-20%. Moderate concentric left ventricular hypertrophy. On Milrinone drip Alcoholism. Follow-up with outpatient resources. H/O paroxysmal atrial fibrillation/flutter. Continue metoprolol twice a day. Coagulopathy. Hold anticoagulation per cardiology because of liver disease. Alcoholic liver disease. Continue supportive care. Monitor for withdrawal and initiate CIWA as needed Consult GI Hyponatremia. repeat BMP in am Bilateral leg pains Obtain Doppler Us lower ext, pending Thronbocytopenia Monitor H/O SLE. Obesity. History Interval history: less pain both legs Hospitalist Physical - Physical exam Narrative exam: Gen: Not in acute distress, lying in bed, obese HEENT: Normocephalic, atraumatic Neck: supple, no JVD Heart: S1 and S2 reg, no murmurs, rubs or gallop Lungs: Clear, no crackles or wheeze Abd: soft, non tender, non distended, normal BS Ext: Bilateral lower ext edema, no clubbing, no cyanosis Neuro:awake,alert, Oriented X 3. No focal signs Psych: Normal mood - Constitutional Vitals: Temp Pulse Resp BP Pulse Ox 99.0 F 66 18 116/83 98 04/07/19 08:48 04/07/19 08:48 04/07/19 08:48 04/07/19 08:48 04/07/19 08:48 General appearance: Present: no acute distress Results - Labs CBC & Chem 7: 04/07/19 05:38 04/07/19 05:38 Labs: Laboratory Last Values WBC 5.1 K/mm3 (4.5-11.0) 04/07/19 05:38 RBC 3.61 M/mm3 (3.65-5.03) L 04/07/19 05:38 Hgb 10.3 gm/dl (11.8-15.2) L 04/07/19 05:38 Hct 31.6 % (35.5-45.6) L 04/07/19 05:38 MCV 88 fl (84-94) 04/07/19 05:38 MCH 29 pg (28-32) 04/07/19 05:38 MCHC 33 % (32-34) 04/07/19 05:38 RDW 19.4 % (13.2-15.2) H 04/07/19 05:38 Plt Count 109 K/mm3 (140-440) L 04/07/19 05:38 Lymph % (Auto) 15.3 % (13.4-35.0) 04/06/19 07:03 [place] % (Auto) 12.7 % (0.0-7.3) H 04/06/19 07:03 Eos % (Auto) 1.4 % (0.0-4.3) 04/06/19 07:03 Baso % (Auto) 0.7 % (0.0-1.8) 04/06/19 07:03 Lymph # 1.1 K/mm3 (1.2-5.4) L 04/06/19 07:03 [place] # 0.9 K/mm3 (0.0-0.8) H 04/06/19 07:03 Eos # 0.1 K/mm3 (0.0-0.4) 04/06/19 07:03 Baso # 0.1 K/mm3 (0.0-0.1) 04/06/19 07:03 Seg Neutrophils % 69.9 % (40.0-70.0) 04/06/19 07:03 Seg Neutrophils # 4.8 K/mm3 (1.8-7.7) 04/06/19 07:03 PT 18.7 Sec. (12.2-14.9) H 04/07/19 05:38 INR 1.60 (0.87-1.13) H 04/07/19 05:38 Sodium 135 mmol/L (137-145) L 04/07/19 05:38 Potassium 3.5 mmol/L (3.6-5.0) L 04/07/19 05:38 Chloride 100.1 mmol/L (98-107) 04/07/19 05:38 Carbon Dioxide 24 mmol/L (22-30) 04/07/19 05:38 14 mmol/L 04/07/19 05:38 BUN 21 mg/dL (9-20) H 04/07/19 05:38 1.1 mg/dL (0.8-1.5) 04/07/19 05:38 Estimated GFR > 60 ml/min 04/07/19 05:38 19 % 04/07/19 05:38 Glucose 148 mg/dL (75-100) H 04/07/19 05:38 Calcium 7.9 mg/dL (8.4-10.2) L 04/07/19 05:38 2.80 mg/dL (0.1-1.2) H 04/07/19 05:38 2.2 mg/dL (0-0.2) H 04/06/19 07:03 1.2 mg/dL 04/06/19 07:03 AST 126 units/L (5-40) H 04/07/19 05:38 ALT 70 units/L (7-56) H 04/07/19 05:38 150 units/L (35-129) H 04/07/19 05:38 < 0.010 ng/mL (0.00-0.029) 04/03/19 14:21 NT-Pro-B Natriuret Pep 2712 pg/mL (0-900) H 04/03/19 14:21 6.9 g/dL (6.3-8.2) 04/07/19 05:38 2.4 g/dL (3.9-5) L 04/07/19 05:38 0.5 % 04/07/19 05:38 TSH 4.490 mlU/mL (0.270-4.200) H 04/03/19 14:21 Free T4 1.36 ng/dL (0.76-1.46) 04/03/19 14:21 Yellow (Yellow) 04/03/19 20:16 Clear (Clear) 04/03/19 20:16 7.0 (5.0-7.0) 04/03/19 20:16 Ur Specific [place] 1.011 (1.003-1.030) 04/03/19 20:16 <15 mg/dl mg/dL (Negative) 04/03/19 20:16 Neg mg/dL (Negative) 04/03/19 20:16 Neg mg/dL (Negative) 04/03/19 20:16 Sm (Negative) 04/03/19 20:16 Neg (Negative) 04/03/19 20:16 Neg (Negative) 04/03/19 20:16 4.0 mg/dL (<2.0) 04/03/19 20:16 Ur Leukocyte Esterase Neg (Negative) 04/03/19 20:16 0.0 /HPF (0.0-6.0) 04/03/19 20:16 1.0 /HPF (0.0-6.0) 04/03/19 20:16 Presumptive negative 04/03/19 20:16 Presumptive negative 04/03/19 20:16 Ur Barbiturates Screen Presumptive negative 04/03/19 20:16 Ur Phencyclidine Scrn Presumptive negative 04/03/19 20:16 Ur Amphetamines Screen Presumptive negative 04/03/19 20:16 U Benzodiazepines Scrn Presumptive negative 04/03/19 20:16 Presumptive negative 04/03/19 20:16 U Marijuana (THC) Screen Presumptive negative 04/03/19 20:16 Disclamer 04/03/19 20:16 Plasma/Serum Alcohol < 0.01 % (0-0.07) 04/03/19 14:21 Active Medications - Current Medications Current Medications: Generic Name Dose Route Start Last Admin Trade Name Freq PRN Reason Stop Dose Admin Acetaminophen 650 mg 04/03/19 17:10 04/05/19 21:52 Tylenol PO 650 mg Q4H PRN Administration Pain MILD(1-3)/Fever >100.5/GARCIA Acetaminophen/Hydrocodone Bitart 1 each 04/06/19 16:46 04/07/19 05:50 [place] 5/325 PO 1 each Q4H PRN Administration Pain, Moderate (4-6) Albuterol 2.5 mg 04/03/19 17:10 Proventil IH Q4H PRN Shortness Of Breath Clonidine HCl 0.1 mg 04/03/19 22:00 04/06/19 22:00 Catapres PO 0.1 mg BID SLOAN Administration Folic Acid 1 mg 04/03/19 18:00 04/06/19 09:55 Folvite PO 1 mg QDAY SLOAN Administration Furosemide 40 mg 04/05/19 18:00 04/07/19 05:46 Lasix IV 40 mg 0600,1800 SLOAN Administration Milrinone Lactate/Dextrose 20 mg in 100 mls @ 12.285 mls/hr 04/05/19 14:00 04/07/19 03:27 Milrinone-D5w 20 Mg/100 Ml IV 04/08/19 13:59 0.375 mcg/kg/min TITR SLOAN 12.285 mls/hr Administration 0.375 MCG/KG/MIN Lorazepam 2 mg 04/03/19 17:09 04/03/19 18:03 Ativan IV 2 mg Q1H PRN Administration CIWA-Ar 8-15 Losartan Potassium 50 mg 04/04/19 10:00 04/06/19 09:54 Cozaar PO 50 mg QDAY SLOAN Administration Metoprolol Tartrate 50 mg 04/04/19 10:00 04/06/19 22:00 Lopressor PO 50 mg BID SLOAN Administration Ondansetron HCl 4 mg 04/03/19 17:10 Zofran IV Q8H PRN Nausea And Vomiting Sodium Chloride 10 ml 04/03/19 22:00 04/06/19 22:07 Sodium Chloride Flush Syringe 10 Ml IV 10 ml BID SLOAN Administration Sodium Chloride 10 ml 04/03/19 17:10 Sodium Chloride Flush Syringe 10 Ml IV PRN PRN LINE FLUSH Triamcinolone Acetonide 1 applic 04/03/19 20:00 04/06/19 22:02 Kenalog TP 1 applic TID SLOAN Administration
[2019-04-07] MEDS: FOLVITE PO SCH (10:07)
[2019-04-07] MEDS: COZAAR PO SCH (10:08)
[2019-04-07] MEDS: CATAPRES PO SCH (10:09)
[2019-04-07] MEDS: LOPRESSOR PO SCH ×2 (10:09→21:59)
[2019-04-07] MEDS: KENALOG TP SCH ×3 (10:10→22:00)
[2019-04-07] MEDS: SODIUM CHLORIDE FLUSH SYRINGE 10 ML IV SCH ×2 (10:11→22:02)
--- NOTE | 2019-04-07 10:45 | Progress Note ---
<JOE PACE - Last Filed: 04/07/19 10:44> Assessment and Plan Acute systolic heart failure Alcoholism: Pt reports quitting about 3 weeks ago. Atrial flutter. persists Coagulopathy: Recently on eliquis Alcoholic liver disease H/O SLE Obesity An echocardiogram revealed severe dilated cardiomyopathy, left ventricular ejection fraction 15-20%. There is dilation of the right heart chambers, flattening of the interventricular septum, dilated IVC, all suggestive of chronic cor pulmonale. Recommend: Anticoagulation for atrial flutter is deferred until liver disease is further evaluated. Treatment of alcoholism and alcoholic liver disease per primary service and gasteroenterology. Sodium/fluid restriction. Continue aggressive medical therapy for systolic heart failure and dilated cardiomyopathy including a trial of IV milrinone for an additional 24 hours. Subjective Date of service: 04/07/19 Interval history: IV milrinone continues. Patient admits he is diuresing well. Objective Vital Signs Temp Pulse Resp BP Pulse Ox 04/07/19 10:09 111/63 04/07/19 10:08 85 111/63 04/07/19 08:48 99.0 F 66 18 116/83 98 04/07/19 05:50 20 04/07/19 03:47 98.6 F 67 18 119/76 98 04/06/19 23:21 98.8 F 67 18 113/70 98 04/06/19 20:31 65 04/06/19 20:01 97.8 F 65 16 127/58 99 04/06/19 17:14 97.6 F 60 18 126/76 86 04/06/19 11:28 98.5 F 70 18 113/71 89 - Physical Examination General: No Apparent Distress HEENT: Positive: PERRL Neck: Positive: neck supple Cardiac: Positive: irregularly irregular Lungs: Positive: Decreased Breath Sounds Neuro: Positive: Grossly Intact Extremities: Present: +1 Edema - Labs and Meds Cardiac Enzymes 04/07/19 Range/Units 05:38 AST 126 H (5-40) units/L Coagulation 04/07/19 Range/Units 05:38 PT 18.7 H (12.2-14.9) Sec. INR 1.60 H (0.87-1.13) CBC 04/07/19 Range/Units 05:38 WBC 5.1 (4.5-11.0) K/mm3 RBC 3.61 L (3.65-5.03) M/mm3 Hgb 10.3 L (11.8-15.2) gm/dl Hct 31.6 L (35.5-45.6) % Plt Count 109 L (140-440) K/mm3 Comprehensive Metabolic Panel 04/07/19 Range/Units 05:38 Sodium 135 L (137-145) mmol/L Potassium 3.5 L (3.6-5.0) mmol/L Chloride 100.1 (98-107) mmol/L Carbon Dioxide 24 (22-30) mmol/L BUN 21 H (9-20) mg/dL Creatinine 1.1 (0.8-1.5) mg/dL Glucose 148 H (75-100) mg/dL Calcium 7.9 L (8.4-10.2) mg/dL AST 126 H (5-40) units/L ALT 70 H (7-56) units/L Alkaline Phosphatase 150 H (35-129) units/L Total Protein 6.9 (6.3-8.2) g/dL Albumin 2.4 L (3.9-5) g/dL <SUNSHINE HUSAIN - Last Filed: 04/07/19 11:11> Assessment and Plan I've seen and evaluated patient and agree with this assessment and plan. Patient presents with acute systolic heart failure. Patient's echocardiogram showed severe dilated cardiomyopathy with ejection fraction 15-20%. Patient is also in permanent atrial flutter and anticoagulated with eliquis. Patient does have also have a history of alcoholic liver disease. At this time the patient is rate controlled for treatment of atrial flutter. Patient has previously been on eliquis for anticoagulation; however, this is currently on hold due to alcoholic liver disease. Recommend continued medical therapy for treatment of systolic heart failure and dilated cardiomyopathy. Continue milrinone. Continue gentle diuresis. Keep net negative I's and O's. Objective Vital Signs Temp Pulse Resp BP Pulse Ox 04/07/19 10:09 111/63 04/07/19 10:08 85 111/63 04/07/19 08:48 99.0 F 66 18 116/83 98 04/07/19 05:50 20 04/07/19 03:47 98.6 F 67 18 119/76 98 04/06/19 23:21 98.8 F 67 18 113/70 98 04/06/19 20:31 65 04/06/19 20:01 97.8 F 65 16 127/58 99 04/06/19 17:14 97.6 F 60 18 126/76 86 04/06/19 11:28 98.5 F 70 18 113/71 89 - Labs and Meds Cardiac Enzymes 04/07/19 Range/Units 05:38 AST 126 H (5-40) units/L Coagulation 04/07/19 Range/Units 05:38 PT 18.7 H (12.2-14.9) Sec. INR 1.60 H (0.87-1.13) CBC 04/07/19 Range/Units 05:38 WBC 5.1 (4.5-11.0) K/mm3 RBC 3.61 L (3.65-5.03) M/mm3 Hgb 10.3 L (11.8-15.2) gm/dl Hct 31.6 L (35.5-45.6) % Plt Count 109 L (140-440) K/mm3 Comprehensive Metabolic Panel 04/07/19 Range/Units 05:38 Sodium 135 L (137-145) mmol/L Potassium 3.5 L (3.6-5.0) mmol/L Chloride 100.1 (98-107) mmol/L Carbon Dioxide 24 (22-30) mmol/L BUN 21 H (9-20) mg/dL Creatinine 1.1 (0.8-1.5) mg/dL Glucose 148 H (75-100) mg/dL Calcium 7.9 L (8.4-10.2) mg/dL AST 126 H (5-40) units/L ALT 70 H (7-56) units/L Alkaline Phosphatase 150 H (35-129) units/L Total Protein 6.9 (6.3-8.2) g/dL Albumin 2.4 L (3.9-5) g/dL
--- NOTE | 2019-04-07 14:17 | Vascular Lab Report ---
DUPLEX DOPPLER BILATERAL LOWER EXTREMITY VEINS INDICATION: Bilateral leg pain. FINDINGS: There is no thrombus within the deep veins of either lower extremity from the common femoral to the c harmony veins. There is normal compression and augmentation on spectral analysis. IMPRESSION: No sonographic evidence for DVT in either lower extremity. Signer Name: Guillermo Farnsworth MD Signed: 04/07/2019 2:12 PM Workstation Name: [id number]
--- NOTE | 2019-04-07 15:01 | Gastroenterology Consultation ---
History of Present Illness - Reason for Consult Consult date: 04/07/19 alcoholic liver disease Requesting physician: SUNSHINE CHENG - History of Present Illness Patient is a 53 y/o male with PMH of ETOH abuse, obesity, HTN, SLE, CHF, OA, and paroxysmal Afib/flutter who presented to ED with c/o worsening edema, SOB, and abdominal distension. Upon admission, he was found to have CHF decompensation with ascites seen on CT and elevated LFTs. GI has been consulted for alcoholic liver disease. This afternoon patient was sitting in bed w/o acute distress. He reports feeling much better with abd distention now improved with taking diuretics (lasix/aldactone). Denies abd pain, N/V, signs of bleeding, or LGI symtoms. Tolerating diet. Admits to hx of heavy daily alcohol use but states he quit drinking ~3 weeks ago. No known hx of cirrhosis. Patient is previously kno wn to our service from a hospitalization last year (01/2018) at [facility] for generalized abd discomfort with CT showing inflammation thought to be 2/2 possibly untreated lupus at that time with LFTs WNL. Past History Past Medical History: other (as per HPI) Past Surgical History: No surgical history, Other (reviewed) Social history: single, smoking, alcohol abuse (Quit 3 weeks ago). denies: prescription drug abuse Family history: hypertension Medications and Allergies Allergies Allergy/AdvReac Type Severity Reaction Status Date / Time indomethacin [From Indocin] Allergy Unknown Verified 11/22/15 18:37 indomethacin sodium Allergy Unknown Verified 11/22/15 18:37 [From Indocin] Home Medications Medication Instructions Recorded Confirmed Last Taken Type cloNIDine [Catapres] 0.1 mg PO BID 12/30/13 04/03/19 Unknown History Triamcinolone 0.1% [Kenalog 0.1% 1 applic TP TID #30 tube 09/04/16 04/03/19 Unknown Rx CREAM] Furosemide [Lasix] 20 mg PO QDAY 04/03/19 04/03/19 Unknown History Losartan [Cozaar] 50 mg PO QDAY 04/03/19 04/03/19 Unknown History Active Meds: Active Medications Acetaminophen (Tylenol) 650 mg PO Q4H PRN PRN Reason: Pain MILD(1-3)/Fever >100.5/GARCIA Last Admin: 04/05/19 21:52 Dose: 650 mg Documented by: Acetaminophen/Hydrocodone Bitart ([place] 5/325) 1 each PO Q4H PRN PRN Reason: Pain, Moderate (4-6) Last Admin: 04/07/19 10:08 Dose: 1 each Documented by: Albuterol (Proventil) 2.5 mg IH Q4H PRN PRN Reason: Shortness Of Breath Folic Acid (Folvite) 1 mg PO QDAY [facility] Last Admin: 04/07/19 10:07 Dose: 1 mg Documented by: Furosemide (Lasix) 40 mg IV 0600,1800 [facility] Last Admin: 04/07/19 05:46 Dose: 40 mg Documented by: Milrinone Lactate/Dextrose (Milrinone-D5w 20 Mg/100 Ml) 20 mg in 100 mls @ 12.285 mls/hr IV TITR [facility] Stop: 04/08/19 13:59 Last Admin: 04/07/19 11:18 Dose: 0.375 mcg/kg/min, 12.285 mls/hr Documented by: Lorazepam (Ativan) 2 mg IV Q1H PRN PRN Reason: CIWA-Ar 8-15 Last Admin: 04/03/19 18:03 Dose: 2 mg Documented by: Losartan Potassium (Cozaar) 100 mg PO QDAY [facility] Metoprolol Tartrate (Lopressor) 50 mg PO BID [facility] Last Admin: 04/07/19 10:09 Dose: 50 mg Documented by: Ondansetron HCl (Zofran) 4 mg IV Q8H PRN PRN Reason: Nausea And Vomiting Sodium Chloride (Sodium Chloride Flush Syringe 10 Ml) 10 ml IV BID [facility] Last Admin: 04/07/19 10:11 Dose: 10 ml Documented by: Sodium Chloride (Sodium Chloride Flush Syringe 10 Ml) 10 ml IV PRN PRN PRN Reason: LINE FLUSH Spironolactone (Aldactone) 25 mg PO QDAY [facility] Triamcinolone Acetonide (Kenalog) 1 applic TP TID [facility] Last Admin: 04/07/19 10:10 Dose: Not Given Documented by: medications reviewed/updated as required Review of Systems - Review of Systems All systems: negative Gastrointestinal: no abdominal pain, no nausea, no vomiting Exam - Constitutional Vital Signs: Temp Pulse Resp BP Pulse Ox 99.0 F 85 18 111/63 98 04/07/19 08:48 04/07/19 10:08 04/07/19 08:48 04/07/19 10:09 04/07/19 08:48 General appearance: no acute distress - Respiratory Respiratory effort: normal - Cardiovascular Rhythm: regular - Gastrointestinal General gastrointestinal: Present: soft, non-tender, distended (slightly (ascites-improved)), normal bowel sounds - Neurologic Neurological: alert and oriented x3 - Labs CBC & Chem 7: 04/07/19 05:38 04/07/19 05:38 Lab Results: Laboratory Results - last 24 hr 04/07/19 04/07/19 04/07/19 05:38 05:38 05:38 WBC 5.1 RBC 3.61 L Hgb 10.3 L Hct 31.6 L MCV 88 MCH 29 MCHC 33 RDW 19.4 H Plt Count 109 L PT 18.7 H INR 1.60 H Sodium 135 L Potassium 3.5 L Chloride 100.1 Carbon Dioxide 24 Anion Gap 14 BUN 21 H Creatinine 1.1 Estimated GFR > 60 BUN/Creatinine Ratio 19 Glucose 148 H POC Glucose Calcium 7.9 L Total Bilirubin 2.80 H AST 126 H ALT 70 H Alkaline Phosphatase 150 H Total Protein 6.9 Albumin 2.4 L Albumin/Globulin Ratio 0.5 04/07/19 12:38 WBC RBC Hgb Hct MCV MCH MCHC RDW Plt Count PT INR Sodium Potassium Chloride Carbon Dioxide Anion Gap BUN Creatinine Estimated GFR BUN/Creatinine Ratio Glucose POC Glucose 68 L Calcium Total Bilirubin AST ALT Alkaline Phosphatase Total Protein Albumin Albumin/Globulin Ratio Assessment and Plan 1.elevated LFTs 2.ETOH abuse 3.acute systolic heart failure 4.Afib/flutter 5.H/o SLE -WBC WNL -H/H 10.3/31.6 -plt 109, INR 1.60-trending down -LFTs-T.val 2.80, AST 126, ALT 70, alk phos 150- trending down -acute hepatitis panel in am -abd CT showed moderate to severe hepatic congestion and moderate ascites -etiology-likely 2/2 congestion 2/2 heart failure along with ETOH (underlying cirrhosis not excluded given low plt and elevated INR) -clinically, patient is w/o GI complaints with labs improving. States abd distention/ascites has now significantly improved with medications. Denies abd pain, N/V, or active signs of bleeding. No encephalopathy noted upon exam. Tolerating diet. -continue diuretics -continue sodium/fluid restriction -need for continued alcohol cessations discussed with patient -okay to resume anticoagulation as needed per cardiology -patient okay to be d/c per GI standpoint with f/u in clinic for further workup/management -will sign off, please call if needed
[2019-04-08] MEDS: NORCO 5/325 PO PRN ×2 (05:42→10:35)
[2019-04-08] MEDS: LASIX IV SCH (05:43)
[2019-04-08] MEDS: MILRINONE-D5W 20 MG/100 ML 20 MG/100 ML BAG IV SCH ×2 (05:48→10:27)
[2019-04-08 06:21] LABS: BUN/Creatinine Ratio 19; Blood Urea Nitrogen 19 mg/dL (9-20); Calcium 8.1 mg/dL (8.4-10.2); Hemolysis Index 4
[2019-04-08 06:27] LABS: Hepatitis B Surface Antigen Non-Reactive (Negative); Hepatitis C Virus Antibody Non-Reactive (NonReactive)
[2019-04-08] MEDS ORDERED: COZAAR PO SCH (10:00)
[2019-04-08] MEDS ORDERED: ALDACTONE PO SCH (10:00)
[2019-04-08] MEDS: FOLVITE PO SCH (10:30)
[2019-04-08] MEDS: LOPRESSOR PO SCH (10:30)
[2019-04-08] MEDS: KENALOG TP SCH (10:34)
[2019-04-08] MEDS: SODIUM CHLORIDE FLUSH SYRINGE 10 ML IV SCH (10:35)
--- NOTE | 2019-04-08 12:26 | Progress Note ---
Assessment and Plan Acute systolic heart failure Alcoholism: Pt reports quitting about 3 weeks ago. Atrial flutter. persists Coagulopathy: Recently on eliquis Alcoholic liver disease H/O SLE Obesity An echocardiogram revealed severe dilated cardiomyopathy, left ventricular ejection fraction 15-20%. There is dilation of the right heart chambers, flattening of the interventricular septum, dilated IVC, all suggestive of chronic cor pulmonale. Recommend: Sodium/fluid restriction. We will discontinue IV milrinone. Continue medical therapy for systolic heart failure. Ok to resume anticoagulation with eliquis for persistent atrial flutter per GI. Stable cardiac patel for discharge home today. Subjective Date of service: 04/08/19 Interval history: IV milrinone continues. Patient admits his shortness of breath has improved and he continues to diurese well. Objective Vital Signs Temp Pulse Resp BP Pulse Ox 04/08/19 10:34 66 04/08/19 10:30 66 04/08/19 10:00 66 04/08/19 08:32 97.5 F L 62 20 132/98 100 04/08/19 03:53 97.9 F 41 L 19 106/76 97 04/07/19 23:17 97.8 F 64 19 119/76 98 04/07/19 20:40 41 L 04/07/19 19:12 97.7 F 73 20 101/65 98 04/07/19 16:41 98.2 F 63 18 120/81 100 - Physical Examination General: No Apparent Distress HEENT: Positive: PERRL Neck: Positive: neck supple Cardiac: Positive: irregularly irregular Neuro: Positive: Grossly Intact Abdomen: Positive: Soft, Active Bowel Sounds Extremities: Absent: edema - Labs and Meds Comprehensive Metabolic Panel 04/08/19 Range/Units 05:24 Sodium 135 L (137-145) mmol/L Potassium 4.0 (3.6-5.0) mmol/L Chloride 97.3 L (98-107) mmol/L Carbon Dioxide 28 (22-30) mmol/L BUN 19 (9-20) mg/dL Creatinine 1.0 (0.8-1.5) mg/dL Glucose 87 (75-100) mg/dL Calcium 8.1 L (8.4-10.2) mg/dL
--- NOTE | 2019-04-08 13:39 | Discharge Summary ---
Providers - Providers Date of Admission: 04/03/19 17:10 Date of discharge: 04/08/19 Attending physician: SUNSHINE CHENG 04/03/19 17:10 Consult to Physician [CONS] Routine Comment: Consulting Provider: MADALYN SERRANO Physician Instructions: Reason For Exam: chf 04/07/19 10:43 Consult to Physician [CONS] Routine Comment: Consulting Provider: GILBERT BRITO Physician Instructions: Reason For Exam: alcoholic liver disease [facility]: [facility] Hospital course: Patient is 53 YO Male with ETOH Dependence, Obesity, HTN, Systolic CHF, OA, Obesity Hypoventilation, Depression, SLE, Gout, Eczema, Lumbar Pain. He presented to ED for evaluation for shortness of breath, leg swelling, and abdominal distention over the past 2 weeks as well as 20lbs weight gain over the past 3 weeks. He was seen and evaluated in ED and found to have CHF exacerbation. Pt admitted to telemetry and initiated on CHF protocol. Was seen by cardiology and started on Milrinone drip. He improved after several days. He has atrial fibrillation but was not put on anticoagulation because of liver disease,thrombocytopenia. He improved slowly subsequently discharged home on 04/08/2019 Total time spsent on discharge, 38 mins Acute on chronic systolic heart failure. Echocardiogram reveals severe four- chamber dilated cardiomyopathy. Global left ventricular systolic function is severely decreased with EF 15-20%. Moderate concentric left ventricular hypertrophy. Cardiology following. managed with Milrinone drip Alcoholism. Follow-up with outpatient resources. H/O paroxysmal atrial fibrillation/flutter. Continue metoprolol twice a day. Coagulopathy. Hold anticoagulation per cardiology because of liver disease. Alcoholic liver disease. Continue supportive care. Monitor for withdrawal and initiate CIWA as needed Consult GI Hyponatremia Bilateral leg pains Obtain Doppler Us lower ext, pending Thronbocytopenia Monitor H/O SLE. Obesity. Disposition: - TO HOME OR SELFCARE - Discharge Diagnoses (1) Alcohol abuse Status: Acute (2) Alcohol intoxication Status: Acute Qualifiers: Complication of substance-induced condition: with unspecified complication Qualified Code(s): F10.929 - Alcohol use, unspecified with intoxication, unspecified (3) Alcoholic liver disease Status: Acute (4) Anasarca Status: Acute (5) Atrial fibrillation with rapid ventricular response Status: Acute (6) Hypertension Status: Acute Qualifiers: Hypertension type: essential hypertension Qualified Code(s): I10 - Essential (primary) hypertension (7) Obesity (BMI 30.0-34.9) Status: Acute (8) Acute on chronic systolic (congestive) heart failure Status: Acute Core Measure Documentation - Palliative Care Palliative Care/ Comfort Measures: Not Applicable - Core Measures Any of the following diagnoses?: heart failure - Heart Failure Discharge Requirements DAISY/ARB for LVSD if EF <40%: Yes Beta niki at discharge: Yes Exam - Constitutional Vitals: Temp Pulse Resp BP Pulse Ox 97.5 F L 66 20 132/98 100 04/08/19 08:32 04/08/19 10:34 04/08/19 08:32 04/08/19 08:32 04/08/19 08:32 Plan Activity: advance as tolerated Diet: low fat, low cholesterol, low salt Additional Instructions: 1.Follow up with PCP or Sedley Bertram in [address] Serrano in 1 week. 3.Follow up with FABIOLA Underwood in 1 week Follow up with: [facility] [place] [facility] [Primary Care Provider] - 7 Days Prescriptions: Spironolactone [Aldactone] 25 mg PO QDAY #30 tablet cloNIDine [Catapres] 0.1 mg PO BID #60 tablet Losartan [Cozaar] 50 mg PO QDAY #30 tablet Apixaban [Eliquis] 5 mg PO Q12HR #60 tablet Folic Acid [Folvite] 1 mg PO QDAY #30 tablet Furosemide [Lasix TAB] 40 mg PO DAILY #30 tablet Metoprolol [Lopressor TAB] 50 mg PO BID #60 tablet Famotidine [Pepcid] 20 mg PO BID #60 tablet
[2019-04-08 14:29] VITALS: BP 129/79
[2019-04-08] MEDS ORDERED: ELIQUIS PO SCH (22:00)
[2019-04-09] MEDS ORDERED: LASIX PO SCH (06:00)
== END 2019-04-08 19:14 | disposition home or self-care (01) | DRG 432 ==
LOC: ED 14:07 → 4A 17:10
PROVIDERS: ADMIT Internal Medicine; ATTEND Internal Medicine
DX: K70.40 Alcoholic hepatic failure without coma (principal); I50.23 Acute on chronic systolic (congestive) heart failure; E87.2 Acidosis; E66.2 Morbid (severe) obesity with alveolar hypoventilation; R18.8 Other ascites; I48.92 Unspecified atrial flutter; I42.0 Dilated cardiomyopathy; D68.9 Coagulation defect, unspecified; E87.1 Hypo-osmolality and hyponatremia; E87.6 Hypokalemia; I11.0 Hypertensive heart disease with heart failure; M19.90 Unspecified osteoarthritis, unspecified site; F32.9 Major depressive disorder, single episode, unspecified; M10.9 Gout, unspecified; M32.9 Systemic lupus erythematosus, unspecified; F10.20 Alcohol dependence, uncomplicated; E66.9 Obesity, unspecified; I48.0 Paroxysmal atrial fibrillation; D69.6 Thrombocytopenia, unspecified; Z88.8 Allergy status to other drugs, medicaments and biological substances; Z68.31 Body mass index [BMI] 31.0-31.9, adult
CPT/HCPCS: 36415; 71045; 71275; 74177; 80048; 80053; 80074; 80076; 80307; 80320; 81001; 82247; 82248; 82962; 83880; 84439; 84443; 84484; 85025; 85027; 85610; 93005; 93010; 93306; 93970; 94760; 96374; 96375; G0378; G0480; J1940; J2060; J2260; Q9967

== ENCOUNTER 2019-04-26 15:11 | Emergency (ER) | payer MEDICAID ==
[2019-04-26 15:45] VITALS: BP 170/112
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
[2019-04-26] MEDS ORDERED: TYLENOL PO ONE (17:41)
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
== END 2019-04-26 18:31 | disposition home or self-care (01) ==
LOC: ED 15:11
DX: M25.571 Pain in right ankle and joints of right foot (principal); M25.572 Pain in left ankle and joints of left foot; I11.0 Hypertensive heart disease with heart failure; I50.9 Heart failure, unspecified; M19.90 Unspecified osteoarthritis, unspecified site; F32.9 Major depressive disorder, single episode, unspecified; M10.9 Gout, unspecified; I48.91 Unspecified atrial fibrillation; Z79.01 Long term (current) use of anticoagulants; Z88.6 Allergy status to analgesic agent; Z88.8 Allergy status to other drugs, medicaments and biological substances; Z79.899 Other long term (current) drug therapy
CPT/HCPCS: 99282

== ENCOUNTER 2019-05-01 01:55 | Inpatient (IN) | payer MEDICAID ==
[2019-05-01 02:37] LABS: Basophils % (Auto) 0.9 % (0.0-1.8); Eosinophils # (Auto) 0.1 K/mm3 (0.0-0.4); Hematocrit 33.3 % (35.5-45.6); Hemoglobin 10.5 gm/dl (11.8-15.2); Lymphocytes # (Auto) 1.6 K/mm3 (1.2-5.4); Lymphocytes % (Auto) 31.1 % (13.4-35.0); Mean Corpuscular HGB Conc 32 % (32-34); Mean Corpuscular Volume 89 fl (84-94); Monocytes # (Auto) 0.5 K/mm3 (0.0-0.8); Monocytes % (Auto) 9.2 % (0.0-7.3); Platelet Count 149 K/mm3 (140-440); Red Blood Count 3.72 M/mm3 (3.65-5.03)
--- NOTE | 2019-05-01 02:37 | XRay Report ---
CHEST 1 VIEW INDICATION: Chest Pain. COMPARISON: 04/03/19 FINDINGS: Support devices: None. Heart: Within normal limits. Lungs/Pleura: No acute air space or interstitial disease. Additional findings: None. IMPRESSION: 1. No acute findings. Signer Name: Hiren Flores MD Signed: 05/01/2019 2:33 AM Workstation Name: [id number]
--- NOTE | 2019-05-01 02:45 | Emergency Department Report ---
ED Chest Pain HPI - General Chief Complaint: Chest Pain Stated Complaint: CHEST PAIN Time Seen by Provider: 05/01/19 02:35 Source: patient Mode of arrival: Ambulatory Limitations: No Limitations - History of Present Illness Initial Comments: Patient is 53-year-old male that is emergency room with complaints of chest pain and shortness of breath. Patient denies nausea vomiting. Patient states he's been drinking. Patient states he was walking about 2 hours ago and began having chest pain. Patient states the chest pain was so severe that it required him to stop and he did not get complete relief. Patient states the chest pain is a 10 out of 10. Patient states chest pain is worse with exertion and better with rest. Patient states shortness of breath is better with rest and worse with exertion. Patient denies diaphoresis. Patient denies abdominal pain. He states he has a history of [place] and CHF. Patient states he is allergic to aspirin and ibuprofen. MD Complaint: chest pain -: Sudden Onset: during exertion Pain Location: substernal, left chest Pain Radiation: none Severity: severe Severity scale (0 -10): 10 Quality: sharp Consistency: constant Improves With: rest Worsens With: exertion re: dyspnea. denies: nausea, vomting, diaphoresis, sense of impending doom Other Symptoms: denies: cough, fever, syncope, rash, acid taste in mouth, leg swelling, palpitations, burping Treatments Prior to Arrival: none Aspirin use within the Past 7 Days: (1) Yes - Related Data On Oral Contraceptives: No Previous Rx's Medication Instructions Recorded Last Taken Type Apixaban [Eliquis] 5 mg PO Q12HR #60 tablet 04/08/19 Unknown Rx Famotidine [Pepcid] 20 mg PO BID #60 tablet 04/08/19 Unknown Rx Folic Acid [Folvite] 1 mg PO QDAY #30 tablet 04/08/19 Unknown Rx Furosemide [Lasix TAB] 40 mg PO DAILY #30 tablet 04/08/19 Unknown Rx Losartan [Cozaar] 50 mg PO QDAY #30 tablet 04/08/19 Unknown Rx Metoprolol [Lopressor TAB] 50 mg PO BID #60 tablet 04/08/19 Unknown Rx Spironolactone [Aldactone] 25 mg PO QDAY #30 tablet 04/08/19 Unknown Rx cloNIDine [Catapres] 0.1 mg PO BID #60 tablet 04/08/19 Unknown Rx Famotidine [Pepcid] 20 mg PO BID #60 tablet 04/26/19 Unknown Rx Folic Acid [Folvite] 1 mg PO QDAY #30 tablet 04/26/19 Unknown Rx Furosemide [Lasix TAB] 40 mg PO QDAY #30 tablet 04/26/19 Unknown Rx Losartan [Cozaar] 50 mg PO QDAY #30 tablet 04/26/19 Unknown Rx Metoprolol [Lopressor TAB] 50 mg PO BID #60 tablet 04/26/19 Unknown Rx Spironolactone [Aldactone] 25 mg PO QDAY #30 tablet 04/26/19 Unknown Rx cloNIDine [Catapres] 0.1 mg PO BID #60 tablet 04/26/19 Unknown Rx Allergies Allergy/AdvReac Type Severity Reaction Status Date / Time indomethacin [From Indocin] Allergy Unknown Verified 11/22/15 18:37 indomethacin sodium Allergy Unknown Verified 11/22/15 18:37 [From Indocin] lisinopril Allergy Angioedema Verified 04/26/19 15:12 Heart Score - HEART Score History: Moderately suspicious EKG: Non-specific Age: 45-65 Risk factors: > 3 risk factors or hx of atherosclerotic disease Troponin: < normal limit HEART Score: 5 ED Review of Systems ROS: Stated complaint: CHEST PAIN Other details as noted in HPI Constitutional: denies: chills, fever Eyes: denies: eye pain, eye discharge, vision change ENT: denies: ear pain, throat pain Respiratory: shortness of breath. denies: cough, wheezing Cardiovascular: chest pain. denies: palpitations Endocrine: no symptoms reported Gastrointestinal: denies: abdominal pain, nausea, diarrhea Genitourinary: denies: urgency, dysuria Musculoskeletal: denies: back pain, joint swelling, arthralgia Skin: denies: rash, lesions Neurological: denies: headache, weakness, paresthesias Psychiatric: denies: anxiety, depression Hematological/Lymphatic: denies: easy bleeding, easy bruising ED Past Medical Hx - Past Medical History Previous Medical History?: Yes Hx Hypertension: Yes Hx CVA: No Hx Heart Attack/AMI: Yes Hx Congestive Heart Failure: Yes Hx Diabetes: No Hx Arthritis: Yes Hx Headaches / Migraines: No Hx Seizures: No Hx Psychiatric Treatment: Yes (Alcohol Abuse, Depression) Hx Asthma: No Hx COPD: No Hx Dementia: No Hx HIV: No Additional medical history: lupus, gout. Dermititis, Eczema. Backache. afib - Surgical History Past Surgical History?: Yes Hx Pacemaker: No - Family History Family history: no significant - Social History Smoking Status: Current Every Day Smoker Substance Use Type: Alcohol - Medications Home Medications: Home Medications Medication Instructions Recorded Confirmed Last Taken Type Apixaban [Eliquis] 5 mg PO Q12HR #60 tablet 04/08/19 Unknown Rx Famotidine [Pepcid] 20 mg PO BID #60 tablet 04/08/19 Unknown Rx Folic Acid [Folvite] 1 mg PO QDAY #30 tablet 04/08/19 Unknown Rx Furosemide [Lasix TAB] 40 mg PO DAILY #30 tablet 04/08/19 Unknown Rx Losartan [Cozaar] 50 mg PO QDAY #30 tablet 04/08/19 Unknown Rx Metoprolol [Lopressor TAB] 50 mg PO BID #60 tablet 04/08/19 Unknown Rx Spironolactone [Aldactone] 25 mg PO QDAY #30 tablet 04/08/19 Unknown Rx cloNIDine [Catapres] 0.1 mg PO BID #60 tablet 04/08/19 Unknown Rx Famotidine [Pepcid] 20 mg PO BID #60 tablet 04/26/19 Unknown Rx Folic Acid [Folvite] 1 mg PO QDAY #30 tablet 04/26/19 Unknown Rx Furosemide [Lasix TAB] 40 mg PO QDAY #30 tablet 04/26/19 Unknown Rx Losartan [Cozaar] 50 mg PO QDAY #30 tablet 04/26/19 Unknown Rx Metoprolol [Lopressor TAB] 50 mg PO BID #60 tablet 04/26/19 Unknown Rx Spironolactone [Aldactone] 25 mg PO QDAY #30 tablet 04/26/19 Unknown Rx cloNIDine [Catapres] 0.1 mg PO BID #60 tablet 04/26/19 Unknown Rx ED Physical Exam - General Limitations: No Limitations General appearance: alert, in no apparent distress - Head Head exam: Present: atraumatic, normocephalic - Eye Eye exam: Present: normal appearance - ENT ENT exam: Present: mucous membranes moist - Neck Neck exam: Present: normal inspection - Respiratory Respiratory exam: Present: normal lung sounds bilaterally. Absent: respiratory distress, wheezes, rales - Cardiovascular Cardiovascular Exam: Present: regular rate, normal rhythm. Absent: systolic murmur, diastolic murmur, rubs, gallop - GI/Abdominal GI/Abdominal exam: Present: soft, normal bowel sounds - Rectal Rectal exam: Present: deferred - Extremities Exam Extremities exam: Present: normal inspection - Back Exam Back exam: Present: normal inspection - Neurological Exam Neurological exam: Present: alert, oriented X3 - Psychiatric Psychiatric exam: Present: normal affect, normal mood - Skin Skin exam: Present: warm, dry, intact, normal color. Absent: rash ED Course Vital Signs 05/01/19 05/01/19 05/01/19 02:29 02:54 02:55 Temperature 97.4 F L 97.6 F Pulse Rate 106 H 94 H Respiratory 18 18 18 Rate Blood Pressure 149/92 Blood Pressure 164/119 [Left] O2 Sat by Pulse 95 99 99 Oximetry - Reevaluation(s) Reevaluation #1: I discussed all results with patient. I discussed plan of care patient. Patient agrees with plan of care. Patient will be admitted to the hospital service. 05/01/19 04:37 - Consultations Consultation #1: Hospitalist consulted for admission. Hospitalist to admit patient 05/01/19 04:37 JAMEL score - Jamel Score Age > 65: (0) No Aspirin use within the Past 7 Days: (1) Yes 3 or more CAD Risk Factors: (1) Yes 2 or more Angina events in past 24 hrs: (0) No Known CAD with more than 50% Stenosis: (0) No Elevated Cardiac Markers: (0) No ST Deviation Greater than 0.5mm: (0) No JAMEL Score: 2 ED Medical Decision Making - Lab Data Result diagrams: 05/01/19 05:25 05/01/19 05:25 - EKG Data -: EKG Interpreted by [facility] EKG shows normal: intervals, QRS complexes, ST-T waves Rate: normal - EKG Data Interpretation: LVH, other (atrial flutter. [place] deviation) - Radiology Data Radiology results: report reviewed CHEST 1 VIEW INDICATION: Chest Pain. COMPARISON: 04/03/19 FINDINGS: Support devices: None. Heart: Within normal limits. Lungs/Pleura: No acute air space or interstitial disease. Additional findings: None. IMPRESSION: 1. No acute findings. - Medical Decision Making Patient is a 53-year-old male that [place] with complaints of chest pain or shortness of breath. Patient is acutely intoxicated. Patient answers questions appropriately. Patient will be admitted to the hospitalist service. Patient's labs unremarkable except for elevated blood alcohol level. Patient chest x-ray negative. Patient's EKG shows atrial flutter. . - Differential Diagnosis chest pain. sob. ACS. Critical Care Time: Yes Critical care attestation.: If time is entered above; I have spent that time in minutes in the direct care of this critically ill patient, excluding procedure time. Critical Care Time: 35 minutes ED Disposition Clinical Impression: Alcohol intoxication Qualifiers: Complication of substance-induced condition: uncomplicated Qualified Code(s): F10.920 - Alcohol use, unspecified with intoxication, uncomplicated Atrial flutter Qualifiers: Atrial flutter type: unspecified Qualified Code(s): I48.92 - Unspecified atrial flutter Chest pain Qualifiers: Chest pain type: unspecified Qualified Code(s): R07.9 - Chest pain, unspecified Disposition: DC-09 OP ADMIT IP TO THIS HOSP Is pt being admited?: Yes Does the pt Need Aspirin: No Condition: Critical Time of Disposition: 04:36
[2019-05-01 02:51] LABS: Red Cell Distribution Width 20.3 % (13.2-15.2)
[2019-05-01 02:54] LABS: BUN/Creatinine Ratio 11; Blood Urea Nitrogen 13 mg/dL (9-20); Calcium 8.3 mg/dL (8.4-10.2); Hemolysis Index 0
[2019-05-01] MEDS ORDERED: TYLENOL PO PRN (05:00)
[2019-05-01] MEDS ORDERED: NACL 0.9% 1000 ML 1,000 ML IV SCH (05:00)
[2019-05-01] MEDS ORDERED: SODIUM CHLORIDE FLUSH SYRINGE 10 ML IV PRN ×2 (05:00)
[2019-05-01] MEDS ORDERED: ZOFRAN IV PRN (05:00)
[2019-05-01] MEDS ORDERED: ATIVAN PO PRN (05:09)
[2019-05-01] MEDS ORDERED: ATIVAN IV PRN (05:09)
--- NOTE | 2019-05-01 05:12 | History and Physical Report ---
History of Present Illness Date of examination: 05/01/19 Date of admission: 05/01/2019 Chief complaint: chest pain, alcohol intoxication History of present illness: Patient is 53-year-old male with PMHx of arthritis, HTN, CHF ETOH use disorder, depression, pacemaker, lupus, gout, A-fib, eczema, chronic backache, dermatitis who presents to the ER with complaints of chest pain and SOB a few hours prior to coming to the ER. Pt was very intoxicated when provided medical history, he admits that he has been drinking, he states that the chest pain started while he was walking. Patient states the chest pain was located on his left substernal area, it was a severe of in intensity of 10 out of 10, associated with SOB, the chest pain is worse with exertion and better with rest. Pt reports similar chest pain, he states that he had not been able to get his medications for blood pressure in a while (cannot recall his cardiology name). Pt denies headache, denies nausea or vomiting, denies palpitation, denies diaphoresis. Pt was seen in the ER, her EKG show no STEMI criteria, his first cardiac enzyme was negative, his chest xray show no acute findings, pt was admitted for evaluation of his chest pain, CIWA protocol was initiated due to pt's alcohol intoxication. Medications and Allergies Allergies Allergy/AdvReac Type Severity Reaction Status Date / Time indomethacin [From Indocin] Allergy Unknown Verified 11/22/15 18:37 indomethacin sodium Allergy Unknown Verified 11/22/15 18:37 [From Indocin] lisinopril Allergy Angioedema Verified 04/26/19 15:12 Home Medications Medication Instructions Recorded Confirmed Last Taken Type Apixaban [Eliquis] 5 mg PO Q12HR #60 tablet 04/08/19 Unknown Rx Famotidine [Pepcid] 20 mg PO BID #60 tablet 04/08/19 Unknown Rx Folic Acid [Folvite] 1 mg PO QDAY #30 tablet 04/08/19 Unknown Rx Furosemide [Lasix TAB] 40 mg PO DAILY #30 tablet 04/08/19 Unknown Rx Losartan [Cozaar] 50 mg PO QDAY #30 tablet 04/08/19 Unknown Rx Metoprolol [Lopressor TAB] 50 mg PO BID #60 tablet 04/08/19 Unknown Rx Spironolactone [Aldactone] 25 mg PO QDAY #30 tablet 04/08/19 Unknown Rx cloNIDine [Catapres] 0.1 mg PO BID #60 tablet 04/08/19 Unknown Rx Famotidine [Pepcid] 20 mg PO BID #60 tablet 04/26/19 Unknown Rx Folic Acid [Folvite] 1 mg PO QDAY #30 tablet 04/26/19 Unknown Rx Furosemide [Lasix TAB] 40 mg PO QDAY #30 tablet 04/26/19 Unknown Rx Losartan [Cozaar] 50 mg PO QDAY #30 tablet 04/26/19 Unknown Rx Metoprolol [Lopressor TAB] 50 mg PO BID #60 tablet 04/26/19 Unknown Rx Spironolactone [Aldactone] 25 mg PO QDAY #30 tablet 04/26/19 Unknown Rx cloNIDine [Catapres] 0.1 mg PO BID #60 tablet 04/26/19 Unknown Rx Active Meds: Active Medications Acetaminophen (Tylenol) 650 mg PO Q4H PRN PRN Reason: Pain MILD(1-3)/Fever >100.5/GARCIA Aspirin (Ecotrin) 325 mg PO QDAY SLOAN Atorvastatin Calcium (Lipitor) 20 mg PO QHS SLOAN Enoxaparin Sodium (Lovenox) 40 mg SUB-Q QDAY SLOAN Sodium Chloride (Nacl 0.9% 1000 Ml) 1,000 mls @ 100 mls/hr IV DIRECT SLOAN Lorazepam (Ativan) 2 mg IV Q1H PRN PRN Reason: CIWA-Ar 8-15 Lorazepam (Ativan) 4 mg PO Q1H PRN PRN Reason: CIWA-Ar 16-25 Ondansetron HCl (Zofran) 4 mg IV Q8H PRN PRN Reason: Nausea And Vomiting Sodium Chloride (Sodium Chloride Flush Syringe 10 Ml) 10 ml IV BID SLOAN Sodium Chloride (Sodium Chloride Flush Syringe 10 Ml) 10 ml IV PRN PRN PRN Reason: LINE FLUSH Sodium Chloride (Sodium Chloride Flush Syringe 10 Ml) 10 ml IV PRN PRN PRN Reason: LINE FLUSH Review of Systems Cardiovascular: chest pain, dyspnea on exertion Exam - Constitutional Vitals: Temp Pulse Resp BP Pulse Ox 97.6 F 94 H 18 164/119 99 05/01/19 02:54 05/01/19 02:54 05/01/19 02:55 05/01/19 02:54 05/01/19 02:55 General appearance: Present: mild distress - EENT Eyes: Present: EOM intact ENT: hearing intact - Neck Neck: Present: supple - Respiratory Respiratory effort: normal Respiratory: bilateral: CTA - Cardiovascular Rhythm: regular - Extremities Extremities: no ischemia, No edema Peripheral Pulses: within normal limits - Abdominal General gastrointestinal: Present: non-tender, non-distended Male genitourinary: Present: deferred - Rectal Rectal Exam: deferred - Integumentary Integumentary: Present: clear, warm, dry - Musculoskeletal Musculoskeletal: strength equal bilaterally - Psychiatric Psychiatric: cooperative - Neurologic Neurologic: moves all extremities Results - Labs CBC & Chem 7: 05/01/19 05:25 05/01/19 05:25 Labs: Laboratory Last Values WBC 5.1 K/mm3 (4.5-11.0) 05/01/19 02:13 RBC 3.72 M/mm3 (3.65-5.03) 05/01/19 02:13 Hgb 10.5 gm/dl (11.8-15.2) L 05/01/19 02:13 Hct 33.3 % (35.5-45.6) L 05/01/19 02:13 MCV 89 fl (84-94) 05/01/19 02:13 MCH 28 pg (28-32) 05/01/19 02:13 MCHC 32 % (32-34) 05/01/19 02:13 RDW 20.3 % (13.2-15.2) H 05/01/19 02:13 Plt Count 149 K/mm3 (140-440) 05/01/19 02:13 Lymph % (Auto) 31.1 % (13.4-35.0) 05/01/19 02:13 [place] % (Auto) 9.2 % (0.0-7.3) H 05/01/19 02:13 Eos % (Auto) 2.0 % (0.0-4.3) 05/01/19 02:13 Baso % (Auto) 0.9 % (0.0-1.8) 05/01/19 02:13 Lymph # 1.6 K/mm3 (1.2-5.4) 05/01/19 02:13 [place] # 0.5 K/mm3 (0.0-0.8) 05/01/19 02:13 Eos # 0.1 K/mm3 (0.0-0.4) 05/01/19 02:13 Baso # 0.0 K/mm3 (0.0-0.1) 05/01/19 02:13 Seg Neutrophils % 56.8 % (40.0-70.0) 05/01/19 02:13 Seg Neutrophils # 2.9 K/mm3 (1.8-7.7) 05/01/19 02:13 Sodium 146 mmol/L (137-145) H 05/01/19 02:13 Potassium 3.9 mmol/L (3.6-5.0) 05/01/19 02:13 Chloride 112.1 mmol/L (98-107) H 05/01/19 02:13 Carbon Dioxide 21 mmol/L (22-30) L 05/01/19 02:13 17 mmol/L 05/01/19 02:13 BUN 13 mg/dL (9-20) 05/01/19 02:13 1.2 mg/dL (0.8-1.5) 05/01/19 02:13 Estimated GFR > 60 ml/min 05/01/19 02:13 11 % 05/01/19 02:13 Glucose 93 mg/dL (75-100) 05/01/19 02:13 Calcium 8.3 mg/dL (8.4-10.2) L 05/01/19 02:13 < 0.010 ng/mL (0.00-0.029) 05/01/19 02:13 Plasma/Serum Alcohol 0.29 % (0-0.07) H 05/01/19 02:13 Assessment and Plan Assessment and plan: 1. Chest pain r/o ACS 2. Alcohol intoxication 3. HTN 4. CHF 5. H/o A-fib 6. ETOH use disorder 7. Depression 8. Pacemaker 9. Arthritis 10. Lupus 11. H/o Gout 12. Chronic backache 13. H/o dermatitis Plan: Pt is admitted to [facility] for chest pain Consult cardiology for evaluation Continue troponin q6hr x2 Cardiac diet CIWA protocol Resume home meds DVT prophylaxis Fall precaution Further plan per cardiology Advance Directives: Yes VTE prophylaxis?: Chemical Plan of care discussed with patient/family: Yes
[2019-05-01 05:53] LABS: Basophils # (Auto) 0.1 K/mm3 (0.0-0.1); Basophils % (Auto) 1.1 % (0.0-1.8); Eosinophils # (Auto) 0.1 K/mm3 (0.0-0.4); Hematocrit 32.2 % (35.5-45.6); Hemoglobin 10.2 gm/dl (11.8-15.2); Lymphocytes # (Auto) 1.7 K/mm3 (1.2-5.4); Mean Corpuscular HGB Conc 32 % (32-34); Mean Corpuscular Volume 90 fl (84-94); Monocytes # (Auto) 0.5 K/mm3 (0.0-0.8); Monocytes % (Auto) 9.4 % (0.0-7.3); Platelet Count 124 K/mm3 (140-440); Red Blood Count 3.59 M/mm3 (3.65-5.03); Red Cell Distribution Width 19.9 % (13.2-15.2)
[2019-05-01 06:04] LABS: BUN/Creatinine Ratio 11; Blood Urea Nitrogen 12 mg/dL (9-20); Calcium 8.3 mg/dL (8.4-10.2); Hemolysis Index 1
[2019-05-01 08:19] VITALS: BP 157/111
[2019-05-01] MEDS ORDERED: LOPRESSOR PO SCH (10:00)
[2019-05-01] MEDS ORDERED: COZAAR PO SCH (10:00)
[2019-05-01] MEDS ORDERED: CATAPRES PO SCH (10:00)
[2019-05-01] MEDS ORDERED: ELIQUIS PO SCH (10:00)
[2019-05-01] MEDS ORDERED: FOLVITE PO SCH (10:00)
[2019-05-01] MEDS ORDERED: PEPCID PO SCH (10:00)
[2019-05-01] MEDS ORDERED: LOVENOX SUB-Q SCH (10:00)
[2019-05-01] MEDS ORDERED: ALDACTONE PO SCH (10:00)
[2019-05-01] MEDS ORDERED: SODIUM CHLORIDE FLUSH SYRINGE 10 ML IV SCH (10:00)
[2019-05-01] MEDS ORDERED: LASIX PO SCH (10:00)
[2019-05-02] MEDS ORDERED: ECOTRIN PO SCH (10:00)
--- NOTE | 2019-05-02 17:07 | Progress Note ---
Assessment and Plan Assessment and plan: 53-year-old man resents to the hospital with chest pain or shortness of breath for a few hours he was also intoxicated upon arrival. 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 Past medical history arthritis, HTN, CHF ETOH use disorder, depression, pacemaker, lupus, gout, A- fib, eczema, chronic backache, dermatitis Chest pain sp PM cardiology consult still pending etoh intoxication/dependence -IV fluids, CIWA protocol htn urgency optimize bp meds, DBP still very high hypernatremia resolved with IVF Chronic conditions include Lupus Gout Chronic lumbago h/o dermatitis arthritis - DVT prophylaxis with Lovenox History Interval history: Review of systems Constitutional: No fevers, no malaise, no joint pains CVS: No chest pain, no orthopnea, no dyspnea on exertion, no pedal edema GI: No abdominal pain, no diarrhea, no vomiting, no constipation Respiratory: no wheezing, no coughing Hospitalist Physical - Physical exam Narrative exam: General.: Appears well, no distress, nontoxic HEENT: Moist mucous membranes, extraocular muscles intact, no lymphadenopathy Neck: supple Cardiac: S1-S2 heard Lungs: clear to auscultation bilaterally Abdomen: soft , nontender, nondistended, bowel sounds positive Extremities: no edema clubbing or cyanosis Skin: no rash or lesions Neurologic: no gross focal deficits Psych: calm, and cooperative - Constitutional Vitals: Temp Pulse Resp BP Pulse Ox 97.6 F 123 H 25 H 157/111 95 05/01/19 02:54 05/01/19 07:41 05/01/19 07:41 05/01/19 07:53 05/01/19 07:53 General appearance: Present: mild distress Results - Labs CBC & Chem 7: 05/01/19 05:25 05/01/19 05:25 Labs: Laboratory Last Values WBC 4.8 K/mm3 (4.5-11.0) 05/01/19 05:25 RBC 3.59 M/mm3 (3.65-5.03) L 05/01/19 05:25 Hgb 10.2 gm/dl (11.8-15.2) L 05/01/19 05:25 Hct 32.2 % (35.5-45.6) L 05/01/19 05:25 MCV 90 fl (84-94) 05/01/19 05:25 MCH 28 pg (28-32) 05/01/19 05:25 MCHC 32 % (32-34) 05/01/19 05:25 RDW 19.9 % (13.2-15.2) H 05/01/19 05:25 Plt Count 124 K/mm3 (140-440) L 05/01/19 05:25 Lymph % (Auto) 36.0 % (13.4-35.0) H 05/01/19 05:25 [place] % (Auto) 9.4 % (0.0-7.3) H 05/01/19 05:25 Eos % (Auto) 2.0 % (0.0-4.3) 05/01/19 05:25 Baso % (Auto) 1.1 % (0.0-1.8) 05/01/19 05:25 Lymph # 1.7 K/mm3 (1.2-5.4) 05/01/19 05:25 [place] # 0.5 K/mm3 (0.0-0.8) 05/01/19 05:25 Eos # 0.1 K/mm3 (0.0-0.4) 05/01/19 05:25 Baso # 0.1 K/mm3 (0.0-0.1) 05/01/19 05:25 Seg Neutrophils % 51.5 % (40.0-70.0) 05/01/19 05:25 Seg Neutrophils # 2.5 K/mm3 (1.8-7.7) 05/01/19 05:25 Sodium 143 mmol/L (137-145) 05/01/19 05:25 Potassium 3.9 mmol/L (3.6-5.0) 05/01/19 05:25 Chloride 110.9 mmol/L (98-107) H 05/01/19 05:25 Carbon Dioxide 20 mmol/L (22-30) L 05/01/19 05:25 16 mmol/L 05/01/19 05:25 BUN 12 mg/dL (9-20) 05/01/19 05:25 1.1 mg/dL (0.8-1.5) 05/01/19 05:25 Estimated GFR > 60 ml/min 05/01/19 05:25 11 % 05/01/19 05:25 Glucose 98 mg/dL (75-100) 05/01/19 05:25 Calcium 8.3 mg/dL (8.4-10.2) L 05/01/19 05:25 < 0.010 ng/mL (0.00-0.029) 05/01/19 05:25 Plasma/Serum Alcohol 0.29 % (0-0.07) H 05/01/19 02:13
[2019-05-02] MEDS ORDERED: ZOFRAN IV PRN (17:08)
[2019-05-02] MEDS ORDERED: TYLENOL PO PRN (17:08)
[2019-05-02] MEDS ORDERED: NITROSTAT SL PRN (17:08)
[2019-05-02] MEDS ORDERED: SODIUM CHLORIDE FLUSH SYRINGE 10 ML IV PRN (17:08)
[2019-05-02] MEDS ORDERED: ATIVAN IV PRN ×2 (17:10)
[2019-05-02] MEDS ORDERED: ATIVAN PO PRN (17:10)
[2019-05-02] MEDS ORDERED: APRESOLINE IV PRN (17:11)
[2019-05-02] MEDS ORDERED: COZAAR PO SCH (18:00)
[2019-05-02] MEDS ORDERED: VITAMIN B-1 PO SCH (18:00)
[2019-05-02] MEDS ORDERED: D5/0.45NS 1,000 ML IV SCH (18:00)
--- NOTE | 2019-05-02 18:22 | Discharge Summary ---
Providers - Providers Date of Admission: 05/01/19 07:47 Attending physician: YUSUF OJEDA MD 05/01/19 Consult to Cardiac Rehabilitation [CONS] Routine Reason For Exam: Phase I 05/01/19 05:00 Consult to Physician [CONS] Routine Comment: Consulting Provider: MADALYN SERRANO Physician Instructions: Reason For Exam: CP 05/02/19 Consult to Cardiac Rehabilitation [CONS] Routine Reason For Exam: Phase I Primary care physician: MARTIN GARZA Hospitalization Condition: Critical Hospital course: 53-year-old man resents to the hospital with chest pain or shortness of breath for a few hours he was also intoxicated upon arrival. 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 Past medical history arthritis, HTN, CHF ETOH use disorder, depression, pacemaker, lupus, gout, A- fib, eczema, chronic backache, dermatitis Chest pain sp PM cardiology consult still pending etoh intoxication/dependence -IV fluids, CIWA protocol htn urgency optimize bp meds, DBP still very high hypernatremia resolved with IVF Chronic conditions include Lupus Gout Chronic lumbago h/o dermatitis arthritis - DVT prophylaxis with Lovenox patient was actively being rx, but signed out ama Disposition: DC-07 LEFT AGAINST MED ADVICE Time spent for discharge: 33 mins Core Measure Documentation - Palliative Care Palliative Care/ Comfort Measures: Not Applicable - Core Measures Any of the following diagnoses?: none Exam - Constitutional Vitals: Temp Pulse Resp BP Pulse Ox 97.6 F 123 H 25 H 157/111 95 05/01/19 02:54 05/01/19 07:41 05/01/19 07:41 05/01/19 07:53 05/01/19 07:53 General appearance: Present: no acute distress, well-nourished - EENT Eyes: Present: PERRL ENT: hearing intact, clear oral mucosa - Neck Neck: Present: supple, normal ROM - Respiratory Respiratory effort: normal Respiratory: bilateral: CTA - Cardiovascular Heart Sounds: Present: S1 & S2. Absent: rub, click - Extremities Extremities: pulses symmetrical, No edema Peripheral Pulses: within normal limits - Abdominal General gastrointestinal: Present: soft, non-tender, non-distended, normal bowel sounds Male genitourinary: Present: normal - Integumentary Integumentary: Present: clear, warm, dry - Musculoskeletal Musculoskeletal: gait normal, strength equal bilaterally - Psychiatric Psychiatric: appropriate mood/affect, intact judgment & insight - Neurologic Neurologic: CNII-XII intact, moves all extremities Plan Forms: AMA Form
[2019-05-02] MEDS ORDERED: SODIUM CHLORIDE FLUSH SYRINGE 10 ML IV SCH (22:00)
[2019-05-02] MEDS ORDERED: CATAPRES PO SCH (22:00)
[2019-05-02] MEDS ORDERED: PEPCID PO SCH (22:00)
[2019-05-02] MEDS ORDERED: LOPRESSOR PO SCH (22:00)
[2019-05-02] MEDS ORDERED: ELIQUIS PO SCH (22:00)
[2019-05-03] MEDS ORDERED: LEXISCAN IV ONE (07:05)
[2019-05-03] MEDS ORDERED: LASIX PO SCH (10:00)
[2019-05-03] MEDS ORDERED: ECOTRIN PO SCH (10:00)
[2019-05-03] MEDS ORDERED: FOLVITE PO SCH (10:00)
[2019-05-03] MEDS ORDERED: ALDACTONE PO SCH (10:00)
== END 2019-05-01 11:40 | disposition left against medical advice (07) | DRG 309 ==
LOC: ED 01:55 → 4A 07:47
PROVIDERS: ADMIT Internal Medicine; ATTEND Internal Medicine
DX: I48.92 Unspecified atrial flutter (principal); E87.0 Hyperosmolality and hypernatremia; I16.0 Hypertensive urgency; I50.9 Heart failure, unspecified; F10.229 Alcohol dependence with intoxication, unspecified; M19.90 Unspecified osteoarthritis, unspecified site; I11.0 Hypertensive heart disease with heart failure; F32.9 Major depressive disorder, single episode, unspecified; M10.9 Gout, unspecified; I48.91 Unspecified atrial fibrillation; M54.9 Dorsalgia, unspecified; G89.29 Other chronic pain; F17.200 Nicotine dependence, unspecified, uncomplicated; M32.9 Systemic lupus erythematosus, unspecified; Z95.0 Presence of cardiac pacemaker; Z79.899 Other long term (current) drug therapy; I25.2 Old myocardial infarction; Z88.6 Allergy status to analgesic agent
CPT/HCPCS: 36415; 71045; 80048; 80320; 84484; 85025; 93005; 93010; G0378; G0480

== ENCOUNTER 2019-05-03 14:51 | Emergency (ER) | payer MEDICAID ==
--- NOTE | 2019-05-03 15:21 | Emergency Department Report ---
Blank Doc - Documentation Documentation: This is a 53-year-old male that presents with generalized pain with hx of lupus. This initial assessment/diagnostic orders/clinical plan/treatment(s) is/are subject to change based on patient's health status, clinical progression and re- assessment by fellow clinical providers in the ED. Further treatment and workup at subsequent clinical providers discretion. Patient/guardians urged not to elope from the ED as their condition may be serious if not clinically assessed a nd managed. Initial orders include: 1- Patient sent to MAIN ED for further evaluation and treatment 2- labs 3- UA
[2019-05-03 15:22] VITALS: BP 166/115
[2019-05-03 16:39] LABS: Basophils # (Auto) 0.1 K/mm3 (0.0-0.1); Basophils % (Auto) 1.4 % (0.0-1.8); Eosinophils % (Auto) 0.7 % (0.0-4.3); Hematocrit 32.5 % (35.5-45.6); Hemoglobin 10.8 gm/dl (11.8-15.2); Lymphocytes % (Auto) 25.3 % (13.4-35.0); Mean Corpuscular HGB Conc 33 % (32-34); Mean Corpuscular Volume 88 fl (84-94); Monocytes # (Auto) 0.5 K/mm3 (0.0-0.8); Monocytes % (Auto) 12.7 % (0.0-7.3); Platelet Count 137 K/mm3 (140-440); Red Blood Count 3.68 M/mm3 (3.65-5.03)
[2019-05-03 16:55] LABS: BUN/Creatinine Ratio TNR; Blood Urea Nitrogen TNR mg/dL (9-20)
[2019-05-03 16:56] LABS: Calcium TNR mg/dL (8.4-10.2)
[2019-05-03 16:57] LABS: Hemolysis Index TNR
--- NOTE | 2019-05-03 17:18 | Emergency Department Report ---
ED Alcohol HPI - General Chief Complaint: Weakness Stated Complaint: ETOH/WEAKNESS Time Seen by Provider: 05/03/19 15:20 Source: patient, EMS Mode of arrival: Ambulatory Limitations: No Limitations - History of Present Illness Initial Comments: Chief complaint "nobody cares about me." Mr. Garcia is a 53-year-old male with history of alcoholism, hypertension, alcoholic liver disease, degenerative fibrillation, CHF, obesity, systolic heart failure, who presents with depression and alcohol intoxication. He continues to repeat, "no one cares about me". Our nursing staff witnessed Mr. Bryant drinking alcohol while in the treatment room. He was drinking from a can of beer. Denies suicidal or homicidal ideation. MD Complaint: alcohol intoxication Last Drink: just [employer] (drinking can of beer while in ED treatment room) Chronic Alcohol Use: Yes Previous Visits for Alcohol Intoxication?: Yes Recent Trauma: No Associated Symptoms: depression - Related Data Previous Rx's Medication Instructions Recorded Last Taken Type Apixaban [Eliquis] 5 mg PO Q12HR #60 tablet 04/08/19 Unknown Rx Famotidine [Pepcid] 20 mg PO BID #60 tablet 04/08/19 Unknown Rx Folic Acid [Folvite] 1 mg PO QDAY #30 tablet 04/08/19 Unknown Rx Furosemide [Lasix TAB] 40 mg PO DAILY #30 tablet 04/08/19 Unknown Rx Losartan [Cozaar] 50 mg PO QDAY #30 tablet 04/08/19 Unknown Rx Metoprolol [Lopressor TAB] 50 mg PO BID #60 tablet 04/08/19 Unknown Rx Spironolactone [Aldactone] 25 mg PO QDAY #30 tablet 04/08/19 Unknown Rx cloNIDine [Catapres] 0.1 mg PO BID #60 tablet 04/08/19 Unknown Rx Famotidine [Pepcid] 20 mg PO BID #60 tablet 04/26/19 Unknown Rx Folic Acid [Folvite] 1 mg PO QDAY #30 tablet 04/26/19 Unknown Rx Furosemide [Lasix TAB] 40 mg PO QDAY #30 tablet 04/26/19 Unknown Rx Losartan [Cozaar] 50 mg PO QDAY #30 tablet 04/26/19 Unknown Rx Metoprolol [Lopressor TAB] 50 mg PO BID #60 tablet 04/26/19 Unknown Rx Spironolactone [Aldactone] 25 mg PO QDAY #30 tablet 04/26/19 Unknown Rx cloNIDine [Catapres] 0.1 mg PO BID #60 tablet 04/26/19 Unknown Rx Allergies Allergy/AdvReac Type Severity Reaction Status Date / Time indomethacin [From Indocin] Allergy Unknown Verified 11/22/15 18:37 indomethacin sodium Allergy Unknown Verified 11/22/15 18:37 [From Indocin] lisinopril Allergy Angioedema Verified 04/26/19 15:12 ED Review of Systems ROS: Stated complaint: ETOH/WEAKNESS Other details as noted in HPI Comment: All other systems reviewed and negative Constitutional: denies: malaise Respiratory: denies: cough Cardiovascular: denies: chest pain Gastrointestinal: denies: abdominal pain Psychiatric: depression ED Past Medical Hx - Past Medical History Previous Medical History?: Yes Hx Hypertension: Yes Hx CVA: No Hx Heart Attack/AMI: Yes Hx Congestive Heart Failure: Yes Hx Diabetes: No Hx Arthritis: Yes Hx Headaches / Migraines: No Hx Seizures: No Hx Psychiatric Treatment: Yes (Alcohol Abuse, Depression) Hx Asthma: No Hx COPD: No Hx Dementia: No Hx HIV: No Additional medical history: lupus, gout. Dermititis, Eczema. Backache. afib - Surgical History Past Surgical History?: No Hx Pacemaker: No - Social History Smoking Status: Never Smoker Substance Use Type: Alcohol, Marijuana - Medications Home Medications: Home Medications Medication Instructions Recorded Confirmed Last Taken Type Apixaban [Eliquis] 5 mg PO Q12HR #60 tablet 04/08/19 Unknown Rx Famotidine [Pepcid] 20 mg PO BID #60 tablet 04/08/19 Unknown Rx Folic Acid [Folvite] 1 mg PO QDAY #30 tablet 04/08/19 Unknown Rx Furosemide [Lasix TAB] 40 mg PO DAILY #30 tablet 04/08/19 Unknown Rx Losartan [Cozaar] 50 mg PO QDAY #30 tablet 04/08/19 Unknown Rx Metoprolol [Lopressor TAB] 50 mg PO BID #60 tablet 04/08/19 Unknown Rx Spironolactone [Aldactone] 25 mg PO QDAY #30 tablet 04/08/19 Unknown Rx cloNIDine [Catapres] 0.1 mg PO BID #60 tablet 04/08/19 Unknown Rx Famotidine [Pepcid] 20 mg PO BID #60 tablet 04/26/19 Unknown Rx Folic Acid [Folvite] 1 mg PO QDAY #30 tablet 04/26/19 Unknown Rx Furosemide [Lasix TAB] 40 mg PO QDAY #30 tablet 04/26/19 Unknown Rx Losartan [Cozaar] 50 mg PO QDAY #30 tablet 04/26/19 Unknown Rx Metoprolol [Lopressor TAB] 50 mg PO BID #60 tablet 04/26/19 Unknown Rx Spironolactone [Aldactone] 25 mg PO QDAY #30 tablet 04/26/19 Unknown Rx cloNIDine [Catapres] 0.1 mg PO BID #60 tablet 04/26/19 Unknown Rx ED Physical Exam - General Limitations: No Limitations General appearance: alert, in no apparent distress, appears intoxicated - Head Head exam: Present: atraumatic, normocephalic - Eye Eye exam: Present: conjunctival injection - ENT ENT exam: Present: mucous membranes moist - Neck Neck exam: Present: normal inspection, full ROM - Respiratory Respiratory exam: Present: normal lung sounds bilaterally. Absent: respiratory distress, wheezes, rales, rhonchi - Cardiovascular Cardiovascular Exam: Present: regular rate, normal rhythm, normal heart sounds. Absent: systolic murmur, diastolic murmur, rubs, gallop - GI/Abdominal GI/Abdominal exam: Present: soft, normal bowel sounds. Absent: distended, tenderness, guarding, rebound - Rectal Rectal exam: Present: deferred - Extremities Exam Extremities exam: Present: normal inspection - Back Exam Back exam: Present: normal inspection - Neurological Exam Neurological exam: Present: alert, oriented X3 - Psychiatric Psychiatric exam: Present: normal affect, normal mood - Skin Skin exam: Present: warm, dry, intact, normal color. Absent: rash ED Course Vital Signs 05/03/19 15:21 Temperature 98.3 F Pulse Rate 58 L Respiratory 20 Rate Blood Pressure 166/115 O2 Sat by Pulse 100 Oximetry ED Medical Decision Making - Lab Data Result diagrams: 05/03/19 15:54 05/03/19 15:54 - Medical Decision Making Mr. Garcia presents with alcohol intoxication. He continues to drink beer even here in the ED. He has steady gait. He desires to be discharged home. No suicidality. He plans to take the train home. I reviewed CBC which was obtai deena on triage protocol. Remainder of labs were hemolyzed. Remainder of labs are currently unnecessary with today's presentation. Critical care attestation.: If time is entered above; I have spent that time in minutes in the direct care of this critically ill patient, excluding procedure time. ED Disposition Clinical Impression: Alcohol intoxication Disposition: DC-01 TO HOME OR SELFCARE Is pt being admited?: No Does the pt Need Aspirin: No Condition: Stable
== END 2019-05-03 17:39 | disposition home or self-care (01) ==
LOC: ED 14:51
DX: F10.120 Alcohol abuse with intoxication, uncomplicated (principal); I11.0 Hypertensive heart disease with heart failure; I50.9 Heart failure, unspecified; I25.2 Old myocardial infarction; M19.90 Unspecified osteoarthritis, unspecified site; F32.9 Major depressive disorder, single episode, unspecified; I48.91 Unspecified atrial fibrillation; F12.90 Cannabis use, unspecified, uncomplicated; Z79.899 Other long term (current) drug therapy; Z88.8 Allergy status to other drugs, medicaments and biological substances
CPT/HCPCS: 36415; 80048; 85025; 99283; J2785; 80320; G0480

== ENCOUNTER 2019-05-29 14:42 | Inpatient (IN) | payer MEDICAID ==
[2019-05-29] MEDS ORDERED: NACL 0.9% 500 ML 500 ML IV ONE (15:25)
[2019-05-29 15:53] LABS: Basophils % (Auto) 0.8 % (0.0-1.8); Eosinophils # (Auto) 0.1 K/mm3 (0.0-0.4); Eosinophils % (Auto) 1.2 % (0.0-4.3); Hematocrit 31.9 % (35.5-45.6); Hemoglobin 10.1 gm/dl (11.8-15.2); Lymphocytes # (Auto) 1.1 K/mm3 (1.2-5.4); Lymphocytes % (Auto) 24.8 % (13.4-35.0); Mean Corpuscular HGB Conc 32 % (32-34); Mean Corpuscular Volume 90 fl (84-94); Monocytes # (Auto) 0.4 K/mm3 (0.0-0.8); Monocytes % (Auto) 10.1 % (0.0-7.3); Platelet Count 138 K/mm3 (140-440); Red Blood Count 3.55 M/mm3 (3.65-5.03)
[2019-05-29 15:59] LABS: Red Cell Distribution Width 20.2 % (13.2-15.2)
[2019-05-29 16:02] LABS: INR 1.33 (0.87-1.13)
[2019-05-29 16:12] LABS: BUN/Creatinine Ratio 20; Blood Urea Nitrogen 22 mg/dL (9-20); Calcium 8.5 mg/dL (8.4-10.2); Hemolysis Index 1
--- NOTE | 2019-05-29 16:41 | XRay Report ---
CHEST 1 VIEW INDICATION: fluid overload COMPARISON: 05/01/2019 FINDINGS: Support devices: None Heart: Mildly enlarged but stable Lungs/Pleura: Mild interstitial edema. No significant pleural fluid. IMPRESSION: 1. Mild interstitial edema. Signer Name: Fly Pérez MD Signed: 05/29/2019 4:37 PM Workstation Name: [id number]
--- NOTE | 2019-05-29 17:26 | History and Physical Report ---
History of Present Illness Chief complaint: [facility] sick History of present illness: 53 YO Male with ETOH Dependence, Obesity, HTN, Systolic CHF(EF 15%), OA, Obesity Hypoventilation, Depression, SLE, Gout, Eczema, Lumbar Pain, Atrial Fib on therapeutic Anticoagulation, Medication Noncompliance presents to ED for evalu ation. Pt states that he has experienced pain all over his body, feels depressed, and has been drinking over the past 2-3 days. Pt reports shortness of breath, and leg swelling over the past 2 days. Pt also acknowledges Orthopnea/PND, decreased exercise tolerance, dypsnea at rest, dypsnea on exertio n, bilateral lower extremity edema, noncompliance with cardiac diet, as well as 15 lbs weight gain over the past 4 days. Pt denies Fever, Chills, CP, Palpitations, NVD, Trauma, Productive Cough, BRBPR, Unintentional weight loss, prolonged travel/immobility, unilateral leg swelling, calf pain, hemoptysis, skin rash or recent ill contacts. EMS notified, and upon arrival the patient was found to be in distress and transported to [facility]. Pt seen and evaluated in ED and found to have CHF Decompensation as well as ETOH induced Liver Failure, Acidosis. Pt admitted to [facility] and initiated on CHF protocol. Prior admission on 05/01/19 reviewed. All listed medication reviewed at time of admission. Extra 30 minutes dedicated to discussion of plan of care. Pt acknowledges understanding and agreement with care plan. Medications and Allergies Allergies Allergy/AdvReac Type Severity Reaction Status Date / Time indomethacin [From Indocin] Allergy Unknown Verified 11/22/15 18:37 indomethacin sodium Allergy Unknown Verified 11/22/15 18:37 [From Indocin] lisinopril Allergy Angioedema Verified 04/26/19 15:12 Home Medications Medication Instructions Recorded Confirmed Last Taken Type Apixaban [Eliquis] 5 mg PO Q12HR #60 tablet 04/08/19 05/29/19 Unknown Rx Famotidine [Pepcid] 20 mg PO BID #60 tablet 04/08/19 05/29/19 Unknown Rx Folic Acid [Folvite] 1 mg PO QDAY #30 tablet 04/08/19 05/29/19 Unknown Rx Furosemide [Lasix TAB] 40 mg PO DAILY #30 tablet 04/08/19 05/29/19 Unknown Rx Losartan [Cozaar] 50 mg PO QDAY #30 tablet 04/08/19 05/29/19 Unknown Rx Metoprolol [Lopressor TAB] 50 mg PO BID #60 tablet 04/08/19 05/29/19 Unknown Rx Spironolactone [Aldactone] 25 mg PO QDAY #30 tablet 04/08/19 05/29/19 Unknown Rx cloNIDine [Catapres] 0.1 mg PO BID #60 tablet 04/26/19 05/29/19 Unknown Rx Multivitamin with Folic Acid [Cvs 400 mcg PO QDAY #30 tablet 05/13/19 05/29/19 Unknown Rx One Daily Essential Tablet] Thiamine [Vitamin B-1] 100 mg PO QDAY #30 tablet 05/13/19 05/29/19 Unknown Rx chlordiazePOXIDE [Librium] 25 mg PO Q6H PRN #25 capsule 05/13/19 05/29/19 Unknown Rx Review of Systems Constitutional: weight gain, no weight loss, no fever, no chills, no sweats Ears, nose, mouth and throat: no ear pain, no ear discharge, no nasal congestion, no nasal discharge Cardiovascular: orthopnea, shortness of breath, dyspnea on exertion, paroxysmal nocturnal dyspnea, leg edema, decreased exercise tolerance, no palpitations, no syncope Respiratory: no cough, no cough with sputum, no excessive sputum, no hemoptysis Gastrointestinal: no nausea, no vomiting, no diarrhea, no constipation Genitourinary Male: no hematuria, no flank pain, no discharge, no urinary frequency, no urinary hesitancy, no nocturia Rectal: no pain, no incontinence, no bleeding Musculoskeletal: no neck stiffness, no neck pain, no shooting arm pain, no arm numbness/tingling, no low back pain, no shooting leg pain Integumentary: no rash, no pruritis, no redness, no sores, no wounds, no jaundice Neurological: no transient paralysis, no paralysis, no weakness, no parathesias, no numbness, no tingling, no seizures, no syncope Psychiatric: no anxiety, no memory loss, no change in sleep habits, no sleep disturbances, no insomnia, no hypersomnia, no change in appetite, no change in libido, no suicidal ideation Endocrine: no cold intolerance, no heat intolerance, no polyphagia, no excessive thirst, no polydipsia, no polyuria, no nocturia Hematologic/Lymphatic: no easy bruising, no easy bleeding, no lymphadenopathy, no lymphedema Allergic/Immunologic: no urticaria, no allergic rhinitis, no wheezing, no persistent infections, no anaphylaxis, no angioedema Exam - Constitutional Vitals: Temp Pulse Resp BP Pulse Ox 98.0 F 67 20 111/74 95 05/29/19 15:17 05/29/19 16:30 05/29/19 16:30 05/29/19 16:30 05/29/19 16:30 General appearance: Present: mild distress - EENT Eyes: Present: PERRL, miosis ENT: hearing intact, clear oral mucosa - Neck Neck: Present: supple, normal ROM - Respiratory Respiratory effort: normal Respiratory: bilateral: CTA - Cardiovascular Heart Sounds: Present: S1 & S2. Absent: rub, click - Extremities Extremities: pulses symmetrical Extremity abnormal: edema Peripheral Pulses: within normal limits - Abdominal General gastrointestinal: Present: soft, non-tender, non-distended, normal bowel sounds Male genitourinary: Present: normal - Integumentary Integumentary: Present: clear, dry, clammy, decreased turgor - Musculoskeletal Musculoskeletal: generalized weakness - Psychiatric Psychiatric: intact judgment & insight, memory intact, cooperative, depressed - Neurologic Neurologic: CNII-XII intact, moves all extremities, no gait normal Results - Labs CBC & Chem 7: 05/29/19 15:33 05/29/19 15:33 Labs: Abnormal lab results 05/29/19 05/29/19 05/29/19 Range/Units 15:33 15:33 15:33 WBC 4.3 L (4.5-11.0) K/mm3 RBC 3.55 L (3.65-5.03) M/mm3 Hgb 10.1 L (11.8-15.2) gm/dl Hct 31.9 L (35.5-45.6) % RDW 20.2 H (13.2-15.2) % Plt Count 138 L (140-440) K/mm3 [place] % (Auto) 10.1 H (0.0-7.3) % Lymph # 1.1 L (1.2-5.4) K/mm3 PT 16.1 H (12.2-14.9) Sec. INR 1.33 H (0.87-1.13) BUN 22 H (9-20) mg/dL NT-Pro-B Natriuret Pep 1041 H (0-900) pg/mL Plasma/Serum Alcohol (0-0.07) % 05/29/19 Range/Units 15:33 WBC (4.5-11.0) K/mm3 RBC (3.65-5.03) M/mm3 Hgb (11.8-15.2) gm/dl Hct (35.5-45.6) % RDW (13.2-15.2) % Plt Count (140-440) K/mm3 [place] % (Auto) (0.0-7.3) % Lymph # (1.2-5.4) K/mm3 PT (12.2-14.9) Sec. INR (0.87-1.13) BUN (9-20) mg/dL NT-Pro-B Natriuret Pep (0-900) pg/mL Plasma/Serum Alcohol 0.28 H (0-0.07) % Assessment and Plan - Patient Problems (1) Acute on chronic systolic (congestive) heart failure Current Visit: Yes Status: Acute Plan to address problem: Admit to IMCU, strict I/O, daily weight, monitor uop q shift, cardiology consulted, thyroid panel, magnesium, chest x ray, supplemental oxygen, pulse oximetry, BNP (2) Atrial fibrillation Current Visit: Yes Status: Acute Qualifiers: Atrial fibrillation type: persistent Qualified Code(s): I48.1 - Persistent atrial fibrillation Plan to address problem: Rate control, continue therapeutic anticoagulation, (3) Alcohol abuse Current Visit: Yes Status: Acute Plan to address problem: Pt currently intoxicated, supportive care, thiamine, folic acid, multivitamin daily, CIWA protocol, Behavior change counseling +15 minutes. (4) Alcohol intoxication Current Visit: No Status: Acute Plan to address problem: Pt currently intoxicated, supportive care, thiamine, folic acid, multivitamin daily, CIWA protocol (5) Alcoholic liver disease Current Visit: No Status: Acute Plan to address problem: ETOH cessation, CMP, supportive care. (6) Lumbar pain Current Visit: Yes Status: Acute (7) SLE (systemic lupus erythematosus) Current Visit: Yes Status: Acute Qualifiers: Systemic lupus erythematosus organ involvement: unspecified Plan to address problem: Supportive care, continue medical management, outpatient Rheumatology F/U care. (8) Gout Current Visit: Yes Status: Acute Qualifiers: Chronicity: unspecified Plan to address problem: Pain control, supportive care, (9) Depression Current Visit: Yes Status: Acute Qualifiers: Major depression episode severity: moderate Plan to address problem: Mental Health Consulted, supportive care. (10) Advance care planning Current Visit: Yes Status: Acute Plan to address problem: discussed ETOH Cessation, outpatient F/U with Alcoholics Anonymous immediately at time of discharge, Case management consulted for AA literature, Discussed dmitriy of secondary to chronic liver disease. +30 minutes. (11) DVT prophylaxis Current Visit: Yes Status: Acute Plan to address problem: SCD to BLE while in bed, continue therapeutic anticoagulation
[2019-05-29] MEDS ORDERED: SODIUM CHLORIDE FLUSH SYRINGE 10 ML IV PRN (17:33)
--- NOTE | 2019-05-29 17:33 | Emergency Department Report ---
ED General Adult HPI - General Chief complaint: Alcohol Stated complaint: ETOH/CHF Time Seen by Provider: 05/29/19 15:17 Source: EMS Mode of arrival: Stretcher Limitations: No Limitations - History of Present Illness Initial comments: Patient is a 53-year-old male who has a past medical history of congestive heart failure with EF of 15-20% as well as alcohol abuse and lupus who is presenting with alcohol intoxication and pain all over. Patient states he has pain in his arms and legs mostly in his legs. Patient states his feet are swollen and is very upset about this. Patient is poorly compliant with his Lasix. Patient also states he has some mild shortness of breath but denies chest pain at this time. Patient states has been no nausea vomiting or diarrhea. Patient is not the best historian currently secondary to being into xicated with alcohol. Patient states he drank heavily because he was in pain. Severity scale (0 -10): 0 - Related Data Previous Rx's Medication Instructions Recorded Last Taken Type Apixaban [Eliquis] 5 mg PO Q12HR #60 tablet 04/08/19 Unknown Rx Famotidine [Pepcid] 20 mg PO BID #60 tablet 04/08/19 Unknown Rx Folic Acid [Folvite] 1 mg PO QDAY #30 tablet 04/08/19 Unknown Rx Furosemide [Lasix TAB] 40 mg PO DAILY #30 tablet 04/08/19 Unknown Rx Losartan [Cozaar] 50 mg PO QDAY #30 tablet 04/08/19 Unknown Rx Metoprolol [Lopressor TAB] 50 mg PO BID #60 tablet 04/08/19 Unknown Rx Spironolactone [Aldactone] 25 mg PO QDAY #30 tablet 04/08/19 Unknown Rx cloNIDine [Catapres] 0.1 mg PO BID #60 tablet 04/08/19 Unknown Rx Famotidine [Pepcid] 20 mg PO BID #60 tablet 04/26/19 Unknown Rx Folic Acid [Folvite] 1 mg PO QDAY #30 tablet 04/26/19 Unknown Rx Furosemide [Lasix TAB] 40 mg PO QDAY #30 tablet 04/26/19 Unknown Rx Losartan [Cozaar] 50 mg PO QDAY #30 tablet 04/26/19 Unknown Rx Metoprolol [Lopressor TAB] 50 mg PO BID #60 tablet 04/26/19 Unknown Rx Spironolactone [Aldactone] 25 mg PO QDAY #30 tablet 04/26/19 Unknown Rx cloNIDine [Catapres] 0.1 mg PO BID #60 tablet 04/26/19 Unknown Rx Multivitamin with Folic Acid [Cvs 400 mcg PO QDAY #30 tablet 05/13/19 Unknown Rx One Daily Essential Tablet] Thiamine [Vitamin B-1] 100 mg PO QDAY #30 tablet 05/13/19 Unknown Rx chlordiazePOXIDE [Librium] 25 mg PO Q6H PRN #25 capsule 05/13/19 Unknown Rx Allergies Allergy/AdvReac Type Severity Reaction Status Date / Time indomethacin [From Indocin] Allergy Unknown Verified 11/22/15 18:37 indomethacin sodium Allergy Unknown Verified 11/22/15 18:37 [From Indocin] lisinopril Allergy Angioedema Verified 04/26/19 15:12 ED Review of Systems ROS: Stated complaint: ETOH/CHF Other details as noted in HPI Comment: All other systems reviewed and negative ED Past Medical Hx - Past Medical History Hx Hypertension: Yes Hx CVA: No Hx Heart Attack/AMI: Yes Hx Congestive Heart Failure: Yes Hx Diabetes: No Hx Arthritis: Yes Hx Headaches / Migraines: No Hx Seizures: No Hx Psychiatric Treatment: Yes (Alcohol Abuse, Depression) Hx Asthma: No Hx COPD: No Hx Dementia: No Hx HIV: No Additional medical history: lupus, gout. Dermititis, Eczema. Backache. afib - Surgical History Hx Pacemaker: No - Social History Smoking Status: Unknown if ever smoked Substance Use Type: Alcohol - Medications Home Medications: Home Medications Medication Instructions Recorded Confirmed Last Taken Type Apixaban [Eliquis] 5 mg PO Q12HR #60 tablet 04/08/19 Unknown Rx Famotidine [Pepcid] 20 mg PO BID #60 tablet 04/08/19 Unknown Rx Folic Acid [Folvite] 1 mg PO QDAY #30 tablet 04/08/19 Unknown Rx Furosemide [Lasix TAB] 40 mg PO DAILY #30 tablet 04/08/19 Unknown Rx Losartan [Cozaar] 50 mg PO QDAY #30 tablet 04/08/19 Unknown Rx Metoprolol [Lopressor TAB] 50 mg PO BID #60 tablet 04/08/19 Unknown Rx Spironolactone [Aldactone] 25 mg PO QDAY #30 tablet 04/08/19 Unknown Rx cloNIDine [Catapres] 0.1 mg PO BID #60 tablet 04/08/19 Unknown Rx Famotidine [Pepcid] 20 mg PO BID #60 tablet 04/26/19 Unknown Rx Folic Acid [Folvite] 1 mg PO QDAY #30 tablet 04/26/19 Unknown Rx Furosemide [Lasix TAB] 40 mg PO QDAY #30 tablet 04/26/19 Unknown Rx Losartan [Cozaar] 50 mg PO QDAY #30 tablet 04/26/19 Unknown Rx Metoprolol [Lopressor TAB] 50 mg PO BID #60 tablet 04/26/19 Unknown Rx Spironolactone [Aldactone] 25 mg PO QDAY #30 tablet 04/26/19 Unknown Rx cloNIDine [Catapres] 0.1 mg PO BID #60 tablet 04/26/19 Unknown Rx Multivitamin with Folic Acid [Cvs 400 mcg PO QDAY #30 tablet 05/13/19 Unknown Rx One Daily Essential Tablet] Thiamine [Vitamin B-1] 100 mg PO QDAY #30 tablet 05/13/19 Unknown Rx chlordiazePOXIDE [Librium] 25 mg PO Q6H PRN #25 capsule 05/13/19 Unknown Rx ED Physical Exam - General Limitations: No Limitations General appearance: alert, appears intoxicated - Head Head exam: Present: atraumatic, normocephalic - Eye Eye exam: Present: normal appearance, PERRL, EOMI - ENT ENT exam: Present: mucous membranes moist - Neck Neck exam: Present: normal inspection - Respiratory Respiratory exam: Present: rales. Absent: normal lung sounds bilaterally, respiratory distress, wheezes, rhonchi, stridor - Cardiovascular Cardiovascular Exam: Present: regular rate, normal rhythm. Absent: systolic murmur, diastolic murmur, rubs, gallop - GI/Abdominal GI/Abdominal exam: Present: soft, normal bowel sounds. Absent: distended, tenderness, guarding, rebound - Rectal Rectal exam: Present: deferred - Extremities Exam Extremities exam: Present: normal inspection, other (2+ edema to the bilateral feet, ankles, midshin.) - Back Exam Back exam: Present: normal inspection - Neurological Exam Neurological exam: Present: alert, oriented X3 - Psychiatric Psychiatric exam: Present: normal affect, normal mood - Skin Skin exam: Present: warm, dry, intact, normal color. Absent: rash ED Course Vital Signs 05/29/19 05/29/19 05/29/19 15:00 15:17 15:18 Temperature 98.0 F Pulse Rate 68 Respiratory 20 20 Rate Blood Pressure 100/70 99/59 [Left] O2 Sat by Pulse 94 94 Oximetry 05/29/19 16:30 Temperature Pulse Rate 67 Respiratory 20 Rate Blood Pressure 111/74 [Left] O2 Sat by Pulse 95 Oximetry ED Medical Decision Making - Lab Data Result diagrams: 05/29/19 15:33 05/29/19 15:33 Lab Results 05/29/19 05/29/19 05/29/19 Range/Units 15:33 15:33 15:33 WBC 4.3 L (4.5-11.0) K/mm3 RBC 3.55 L (3.65-5.03) M/mm3 Hgb 10.1 L (11.8-15.2) gm/dl Hct 31.9 L (35.5-45.6) % MCV 90 (84-94) fl MCH 29 (28-32) pg MCHC 32 (32-34) % RDW 20.2 H (13.2-15.2) % Plt Count 138 L (140-440) K/mm3 Lymph % (Auto) 24.8 (13.4-35.0) % [place] % (Auto) 10.1 H (0.0-7.3) % Eos % (Auto) 1.2 (0.0-4.3) % Baso % (Auto) 0.8 (0.0-1.8) % Lymph # 1.1 L (1.2-5.4) K/mm3 [place] # 0.4 (0.0-0.8) K/mm3 Eos # 0.1 (0.0-0.4) K/mm3 Baso # 0.0 (0.0-0.1) K/mm3 Seg Neutrophils % 63.1 (40.0-70.0) % Seg Neutrophils # 2.7 (1.8-7.7) K/mm3 PT 16.1 H (12.2-14.9) Sec. INR 1.33 H (0.87-1.13) APTT 35.0 (24.2-36.6) Sec. Sodium 142 (137-145) mmol/L Potassium 3.6 (3.6-5.0) mmol/L Chloride 106.5 (98-107) mmol/L Carbon Dioxide 22 (22-30) mmol/L Anion Gap 17 mmol/L BUN 22 H (9-20) mg/dL Creatinine 1.1 (0.8-1.5) mg/dL Estimated GFR > 60 ml/min BUN/Creatinine Ratio 20 % Glucose 97 (75-100) mg/dL Calcium 8.5 (8.4-10.2) mg/dL NT-Pro-B Natriuret Pep 1041 H (0-900) pg/mL Plasma/Serum Alcohol (0-0.07) % 05/29/19 Range/Units 15:33 WBC (4.5-11.0) K/mm3 RBC (3.65-5.03) M/mm3 Hgb (11.8-15.2) gm/dl Hct (35.5-45.6) % MCV (84-94) fl MCH (28-32) pg MCHC (32-34) % RDW (13.2-15.2) % Plt Count (140-440) K/mm3 Lymph % (Auto) (13.4-35.0) % [place] % (Auto) (0.0-7.3) % Eos % (Auto) (0.0-4.3) % Baso % (Auto) (0.0-1.8) % Lymph # (1.2-5.4) K/mm3 [place] # (0.0-0.8) K/mm3 Eos # (0.0-0.4) K/mm3 Baso # (0.0-0.1) K/mm3 Seg Neutrophils % (40.0-70.0) % Seg Neutrophils # (1.8-7.7) K/mm3 PT (12.2-14.9) Sec. INR (0.87-1.13) APTT (24.2-36.6) Sec. Sodium (137-145) mmol/L Potassium (3.6-5.0) mmol/L Chloride (98-107) mmol/L Carbon Dioxide (22-30) mmol/L Anion Gap mmol/L BUN (9-20) mg/dL Creatinine (0.8-1.5) mg/dL Estimated GFR ml/min BUN/Creatinine Ratio % Glucose (75-100) mg/dL Calcium (8.4-10.2) mg/dL NT-Pro-B Natriuret Pep (0-900) pg/mL Plasma/Serum Alcohol 0.28 H (0-0.07) % - Radiology Data [facility] [address] [place] [address] XRay Report Signed Patient: DELMI GRIMM MR#: [id number] : 1965 Acct:[id number] Age/Sex: 53 / M ADM Date: 05/29/19 Loc: ED Attending Dr: Ordering Physician: JARAD BUNDY MD Date of Service: 05/29/19 Procedure(s): XR chest 1V ap Accession Number(s): [id number] cc: JARAD BUNDY MD Fluoro Time In Minutes: CHEST 1 VIEW INDICATION: fluid overload COMPARISON: 05/01/2019 FINDINGS: Support devices: None Heart: Mildly enlarged but stable Lungs/Pleura: Mild interstitial edema. No significant pleural fluid. IMPRESSION: 1. Mild interstitial edema. Signer Name: Fly Pérez MD Signed: 05/29/2019 4:37 PM Works tation Name: [id number] Transcribed By: TM Dictated By: Fly Pérez MD Electronically Authenticated By: Fly Pérez MD Signed Date/Time: 05/29/191636 DD/ 35 TD/TT: - Medical Decision Making This was given 500 mL of normal saline to help with his blood pressure. Patient is a alcoholic and is then eating and drinking less as substituting just with alcohol. Patient blood pressure 120 systolic at the time of admission. Patient's O2 sat is within normal limits however he does complain of shortness of breath and will need diuresis. Chest x-ray shows pulmonary vessel congestion and mild edema. Patient will likely thirst spacing will need further management. Patient be admitted to the hospitalist service. Critical care attestation.: If time is entered above; I have spent that time in minutes in the direct care of this critically ill patient, excluding procedure time. ED Disposition Clinical Impression: Alcohol abuse, Acute on chronic systolic (congestive) heart failure CHF (congestive heart failure) Qualifiers: Heart failure type: systolic Heart failure chronicity: acute Qualified Code(s): I50.21 - Acute systolic (congestive) heart failure Disposition: DC-09 OP ADMIT IP TO THIS HOSP Is pt being admited?: Yes Does the pt Need Aspirin: No Condition: Stable Time of Disposition: 17:34
[2019-05-29] MEDS ORDERED: THERAGRAN Tab PO ONE (17:36)
[2019-05-29] MEDS ORDERED: VITAMIN B-1 PO ONE (17:36)
[2019-05-29] MEDS: FOLVITE PO SCH (17:49)
[2019-05-29] MEDS ORDERED: ATIVAN IV PRN (18:04)
[2019-05-29] MEDS ORDERED: VITAMIN B-1 100 MG, FOLVITE 1 MG, INFUVITE 10 ML in NACL 0.9% 1000 ML 1,000 ML IV ONE (18:30)
[2019-05-29 21:49] LABS: Free T4 (Free Thyroxine) 0.98 ng/dL (0.76-1.46)
[2019-05-29] MEDS: SODIUM CHLORIDE FLUSH SYRINGE 10 ML IV SCH (23:09)
[2019-05-30 05:26] LABS: Basophils % (Auto) 1.1 % (0.0-1.8); Eosinophils # (Auto) 0.1 K/mm3 (0.0-0.4); Eosinophils % (Auto) 2.4 % (0.0-4.3); Hematocrit 31.8 % (35.5-45.6); Hemoglobin 10.1 gm/dl (11.8-15.2); Lymphocytes # (Auto) 1.2 K/mm3 (1.2-5.4); Lymphocytes % (Auto) 28.5 % (13.4-35.0); Mean Corpuscular HGB Conc 32 % (32-34); Mean Corpuscular Volume 91 fl (84-94); Monocytes # (Auto) 0.5 K/mm3 (0.0-0.8); Monocytes % (Auto) 12.3 % (0.0-7.3); Platelet Count 123 K/mm3 (140-440); Red Blood Count 3.52 M/mm3 (3.65-5.03)
[2019-05-30 05:36] LABS: Red Cell Distribution Width 20.4 % (13.2-15.2)
[2019-05-30 05:42] LABS: Alanine Aminotransferase 14 units/L (7-56); Albumin 2.8 g/dL (3.9-5); BUN/Creatinine Ratio 20; Blood Urea Nitrogen 20 mg/dL (9-20); Hemolysis Index 0
[2019-05-30] MEDS: FOLVITE PO SCH (10:26)
[2019-05-30] MEDS: SODIUM CHLORIDE FLUSH SYRINGE 10 ML IV SCH (10:27)
--- NOTE | 2019-05-30 14:06 | Consultation ---
History of Present Illness Consult date: 05/30/19 Consult reason: congestive heart failure History of present illness: Impression Acute on chronic systolic CHF, known EF 15-20% Chronic alcohol abuse Permanent Atrial fib HTN Plan Diuresis restart CV meds restart eliquis Medications and Allergies Allergies Allergy/AdvReac Type Severity Reaction Status Date / Time indomethacin [From Indocin] Allergy Unknown Verified 11/22/15 18:37 indomethacin sodium Allergy Unknown Verified 11/22/15 18:37 [From Indocin] lisinopril Allergy Angioedema Verified 04/26/19 15:12 Home Medications Medication Instructions Recorded Confirmed Last Taken Type Apixaban [Eliquis] 5 mg PO Q12HR #60 tablet 04/08/19 05/29/19 Unknown Rx Famotidine [Pepcid] 20 mg PO BID #60 tablet 04/08/19 05/29/19 Unknown Rx Folic Acid [Folvite] 1 mg PO QDAY #30 tablet 04/08/19 05/29/19 Unknown Rx Furosemide [Lasix TAB] 40 mg PO DAILY #30 tablet 04/08/19 05/29/19 Unknown Rx Losartan [Cozaar] 50 mg PO QDAY #30 tablet 04/08/19 05/29/19 Unknown Rx Metoprolol [Lopressor TAB] 50 mg PO BID #60 tablet 04/08/19 05/29/19 Unknown Rx Spironolactone [Aldactone] 25 mg PO QDAY #30 tablet 04/08/19 05/29/19 Unknown Rx cloNIDine [Catapres] 0.1 mg PO BID #60 tablet 04/26/19 05/29/19 Unknown Rx Multivitamin with Folic Acid [Cvs 400 mcg PO QDAY #30 tablet 05/13/19 05/29/19 Unknown Rx One Daily Essential Tablet] Thiamine [Vitamin B-1] 100 mg PO QDAY #30 tablet 05/13/19 05/29/19 Unknown Rx chlordiazePOXIDE [Librium] 25 mg PO Q6H PRN #25 capsule 05/13/19 05/29/19 Unknown Rx Active Meds: Active Medications Folic Acid (Folvite) 1 mg PO QDAY SLOAN Last Admin: 05/30/19 10:26 Dose: 1 mg Documented by: Lorazepam (Ativan) 2 mg IV Q1HR PRN PRN Reason: CIWA-Ar 8-15 Sodium Chloride (Sodium Chloride Flush Syringe 10 Ml) 10 ml IV BID SLOAN Last Admin: 05/30/19 10:27 Dose: 10 ml Documented by: Sodium Chloride (Sodium Chloride Flush Syringe 10 Ml) 10 ml IV PRN PRN PRN Reason: LINE FLUSH Review of Systems All systems: negative (HPI) Physical Examination Vital Signs BP 100/70 05/29/19 15:00 General appearance: no acute distress HEENT: Positive: PERRL Neck: Positive: neck supple Cardiac: Positive: irregularly irregular, S1/S2 Lungs: Positive: Normal Exam, clear to auscultation Abdomen: Positive: Soft Extremities: Absent: edema Results 05/30/19 04:32 05/30/19 04:32 Cardiac Enzymes 05/30/19 Range/Units 04:32 AST 34 (5-40) units/L Coagulation 05/29/19 Range/Units 15:33 PT 16.1 H (12.2-14.9) Sec. INR 1.33 H (0.87-1.13) APTT 35.0 (24.2-36.6) Sec. CBC 05/29/19 05/30/19 Range/Units 15:33 04:32 WBC 4.3 L 4.1 L (4.5-11.0) K/mm3 RBC 3.55 L 3.52 L (3.65-5.03) M/mm3 Hgb 10.1 L 10.1 L (11.8-15.2) gm/dl Hct 31.9 L 31.8 L (35.5-45.6) % Plt Count 138 L 123 L (140-440) K/mm3 Lymph # 1.1 L 1.2 (1.2-5.4) K/mm3 [place] # 0.4 0.5 (0.0-0.8) K/mm3 Eos # 0.1 0.1 (0.0-0.4) K/mm3 Baso # 0.0 0.0 (0.0-0.1) K/mm3 Comprehensive Metabolic Panel 05/29/19 05/30/19 Range/Units 15:33 04:32 Sodium 142 141 (137-145) mmol/L Potassium 3.6 3.5 L (3.6-5.0) mmol/L Chloride 106.5 107.3 H (98-107) mmol/L Carbon Dioxide 22 23 (22-30) mmol/L BUN 22 H 20 (9-20) mg/dL Creatinine 1.1 1.0 (0.8-1.5) mg/dL Glucose 97 89 (75-100) mg/dL Calcium 8.5 8.0 L (8.4-10.2) mg/dL AST 34 (5-40) units/L ALT 14 (7-56) units/L Alkaline Phosphatase 119 (35-129) units/L Total Protein 7.6 (6.3-8.2) g/dL Albumin 2.8 L (3.9-5) g/dL
[2019-05-30 14:23] VITALS: BP 159/115
[2019-05-30] MEDS ORDERED: LOPRESSOR PO SCH (15:00)
[2019-05-30] MEDS ORDERED: COZAAR PO SCH (15:00)
[2019-05-30] MEDS ORDERED: K-DUR PO SCH (15:00)
[2019-05-30] MEDS ORDERED: ELIQUIS PO SCH (15:00)
[2019-05-30] MEDS ORDERED: LASIX PO SCH (15:00)
[2019-05-30] MEDS ORDERED: ALDACTONE PO SCH (15:00)
[2019-05-30] MEDS ORDERED: CATAPRES PO SCH (15:00)
--- NOTE | 2019-06-01 23:09 | Discharge Summary ---
Providers - Providers Date of Admission: 05/29/19 17:33 Attending physician: YUSUF OJEDA MD 05/29/19 20:10 Consult to Mental Health [CONS] Routine Reason For Exam: depressed mood Place consult to:: psych 05/29/19 20:12 Consult to Physician [CONS] Routine Comment: Consulting Provider: MADALYN SERRANO Physician Instructions: Reason For Exam: CHF [facility] FLY[facility] Hospitalization Condition: Stable Disposition: DC- LEFT AGAINST MED ADVICE Exam - Constitutional Vitals: Temp Pulse Resp BP Pulse Ox 97.7 F 70 21 159/115 100 05/30/19 12:00 05/30/19 14:01 05/30/19 14:01 05/30/19 14:01 05/30/19 14:01 Plan Follow up with: JOSE WOODS MD [Primary Care Provider] - 7 Days
== END 2019-05-30 14:55 | disposition left against medical advice (07) | DRG 432 ==
LOC: ED 14:42 → IMCU 17:33
PROVIDERS: ADMIT Internal Medicine; ATTEND Internal Medicine
DX: K70.40 Alcoholic hepatic failure without coma (principal); I50.23 Acute on chronic systolic (congestive) heart failure; I11.0 Hypertensive heart disease with heart failure; E66.2 Morbid (severe) obesity with alveolar hypoventilation; E87.2 Acidosis; I48.1 Persistent atrial fibrillation; I48.92 Unspecified atrial flutter; E66.9 Obesity, unspecified; M19.90 Unspecified osteoarthritis, unspecified site; F32.9 Major depressive disorder, single episode, unspecified; F10.229 Alcohol dependence with intoxication, unspecified; M32.9 Systemic lupus erythematosus, unspecified; M10.9 Gout, unspecified; Z79.01 Long term (current) use of anticoagulants; Z91.14 Patient's other noncompliance with medication regimen; Z88.8 Allergy status to other drugs, medicaments and biological substances; Z68.29 Body mass index [BMI] 29.0-29.9, adult
CPT/HCPCS: 36415; 71045; 80048; 80053; 80320; 83735; 83880; 84439; 84443; 85025; 85610; 85730; 93005; 93010; G0378; G0480; J3411; J7030

== ENCOUNTER 2019-06-04 09:44 | Emergency (ER) | payer MEDICAID ==
--- NOTE | 2019-06-04 10:48 | Emergency Department Report ---
HPI - General Chief Complaint: Alcohol Time Seen by Provider: 06/04/19 10:40 - HPI HPI: 53-year-old -[place] male presents to the emergency department via EMS with alcohol intoxication and a complaint of generalized body pain. Patient states that he last drank some gin last night but he does appear acutely intoxicated. He has a past medical history of previous alcohol abuse, lupus, atrial fibrillation, CHF, arthritis, coronary artery disease and hypertension. The patient is on anticoagulation, Eliquis, and says he is compliant with his medications. The patient was at [facility] yesterday for similar complaints. He denies any hallucinations, SI/HI. ED Past Medical Hx - Past Medical History Previous Medical History?: Yes Hx Hypertension: Yes Hx CVA: No Hx Heart Attack/AMI: Yes Hx Congestive Heart Failure: Yes Hx Diabetes: No Hx Arthritis: Yes Hx Headaches / Migraines: No Hx Seizures: No Hx Psychiatric Treatment: Yes (Alcohol Abuse, Depression) Hx Asthma: No Hx COPD: No Hx Dementia: No Hx HIV: No Additional medical history: lupus, gout. Dermititis, Eczema. Backache. afib - Surgical History Past Surgical History?: No Hx Pacemaker: No - Social History Smoking Status: Never Smoker Substance Use Type: Alcohol - Medications Home Medications: Home Medications Medication Instructions Recorded Confirmed Last Taken Type Apixaban [Eliquis] 5 mg PO Q12HR #60 tablet 04/08/19 05/29/19 Unknown Rx Famotidine [Pepcid] 20 mg PO BID #60 tablet 04/08/19 05/29/19 Unknown Rx Folic Acid [Folvite] 1 mg PO QDAY #30 tablet 04/08/19 05/29/19 Unknown Rx Furosemide [Lasix TAB] 40 mg PO DAILY #30 tablet 04/08/19 05/29/19 Unknown Rx Losartan [Cozaar] 50 mg PO QDAY #30 tablet 04/08/19 05/29/19 Unknown Rx Metoprolol [Lopressor TAB] 50 mg PO BID #60 tablet 04/08/19 05/29/19 Unknown Rx Spironolactone [Aldactone] 25 mg PO QDAY #30 tablet 04/08/19 05/29/19 Unknown Rx cloNIDine [Catapres] 0.1 mg PO BID #60 tablet 04/26/19 05/29/19 Unknown Rx Multivitamin with Folic Acid [Cvs 400 mcg PO QDAY #30 tablet 05/13/19 05/29/19 U nknown Rx One Daily Essential Tablet] Thiamine [Vitamin B-1] 100 mg PO QDAY #30 tablet 05/13/19 05/29/19 Unknown Rx chlordiazePOXIDE [Librium] 25 mg PO Q6H PRN #25 capsule 05/13/19 05/29/19 Unknown Rx ED Review of Systems ROS: Stated complaint: ETOH "CHEST PAIN" Other details as noted in HPI Comment: All other systems reviewed and negative Constitutional: denies: chills, fever Eyes: denies: eye pain, vision change ENT: denies: ear pain, throat pain Respiratory: denies: cough, shortness of breath Cardiovascular: denies: chest pain, palpitations Gastrointestinal: denies: abdominal pain, vomiting Genitourinary: denies: dysuria, discharge Musculoskeletal: arthralgia, myalgia. denies: joint swelling Skin: denies: rash, lesions Neurological: denies: headache, numbness Psychiatric: denies: auditory hallucinations, visual hallucinations, homicidal thoughts, suicidal thoughts Physical Exam - Physical Exam Vital Signs: Vital Signs 06/04/19 10:34 Temperature 97.5 F L Pulse Rate 67 Respiratory 16 Rate Blood Pressure 130/91 O2 Sat by Pulse 100 Oximetry Physical Exam: GENERAL: Patient appears intoxicated but otherwise in no acute distress. HENT: Normocephalic. Atraumatic. Patient has moist mucous membranes. EYES: Extraocular motions are intact. NECK: Supple. Trachea is midline. CHEST/LUNGS: Clear to auscultation. There is no respiratory distress noted. HEART/CARDIOVASCULAR: Regular. There is no tachycardia. There is no murmur. ABDOMEN: Abdomen is soft, nontender. Patient has normal bowel sounds. There is no abdominal distention. SKIN: Skin is warm and dry. NEURO: The patient is awake, alert, and oriented. The patient is cooperative. The patient has no focal neurologic deficits. CN II - XII grossly intact. MUSCULOSKELETAL: There is no tenderness or deformity. There is no evidence of acute injury. ED Course Vital Signs 06/04/19 10:34 Temperature 97.5 F L Pulse Rate 67 Respiratory 16 Rate Blood Pressure 130/91 O2 Sat by Pulse 100 Oximetry - Consultations Consultation #1: 06/04/19 18:51 Earlier I spoke with the wildlife conservation professor telephone clerk telegraph office, Dr Tian, regarding this patients renal insufficiency as it has gone from normal 6 days ago to a GFR of 43 today. He says there are no emergent orders or procedures necessary at this time and they will see the patient as a consult. 06/04/19 18:52 ED Medical Decision Making - Lab Data Result diagrams: 06/04/19 10:44 06/04/19 10:44 - EKG Data -: EKG Interpreted by Me - EKG Data When compared to previous EKG there are: no significant change Interpretation: unchanged when compared t (05/29/19), other (atrial flutter, RBBB, LVH, q waves to inferior leads) - Radiology Data Radiology results: image reviewed interpreted by me: Chest x-ray did not show any pneumonia, pleural effusion, pneumothorax or any acute process. - Medical Decision Making This patient presents with alcohol intoxication and full body pain. He does have a history of repeated alcohol abuse and also has a history of lupus. His blood alcohol level came back at 0.27. Given his history of CHF, including a recent admission both here and to [facility] for CHF, I did not want to give much IV fluid resuscitation. Instead, the patient was given oral multivitamin and thiamine. Patient's labs were mostly unremarkable except for signs of acute renal insufficiency/failure. The patient was here 6 days ago and had normal kidney function at that time. His creatinine today is 2 and GFR is 43. Nephrology has been contacted and consult. UDS positive for benzodiazepine. Vital signs stable throughout his ED course thus far. Given the acute renal failure, it is my intention to admit the patient to the hospital for further evaluation, nephro consult and further treatment. The patient has been presented to the admitting hospitalist, Dr Hernandez. - Differential Diagnosis Alcohol intoxication, dehydration, Acute Tubular Necrosis Critical Care Time: No Critical care attestation.: If time is entered above; I have spent that time in minutes in the direct care of this critically ill patient, excluding procedure time. ED Disposition Clinical Impression: Alcohol abuse, Acute kidney injury Alcohol intoxication Qualifiers: Complication of substance-induced condition: uncomplicated Qualified Code(s): F10.920 - Alcohol use, unspecified with intoxication, uncomplicated Disposition: DC-09 OP ADMIT IP TO THIS HOSP Is pt being admited?: Yes Condition: Fair Referrals: PRIMARY CARE, [Primary Care Provider] - 3-5 Days Time of Disposition: 19:03
[2019-06-04 10:58] LABS: Basophils # (Auto) 0.1 K/mm3 (0.0-0.1); Basophils % (Auto) 1.7 % (0.0-1.8); Eosinophils # (Auto) 0.1 K/mm3 (0.0-0.4); Eosinophils % (Auto) 2.9 % (0.0-4.3); Hematocrit 32.5 % (35.5-45.6); Hemoglobin 10.3 gm/dl (11.8-15.2); Lymphocytes # (Auto) 1.4 K/mm3 (1.2-5.4); Lymphocytes % (Auto) 28.2 % (13.4-35.0); Mean Corpuscular HGB Conc 32 % (32-34); Mean Corpuscular Volume 92 fl (84-94); Monocytes # (Auto) 0.6 K/mm3 (0.0-0.8); Monocytes % (Auto) 12.8 % (0.0-7.3); Platelet Count 133 K/mm3 (140-440); Red Blood Count 3.53 M/mm3 (3.65-5.03)
[2019-06-04 11:08] LABS: Red Cell Distribution Width 21.1 % (13.2-15.2)
[2019-06-04 11:19] LABS: Albumin 3.4 g/dL (3.9-5); Bilirubin,Direct 0.7 mg/dL (0-0.2); Calcium 8.4 mg/dL (8.4-10.2)
--- NOTE | 2019-06-04 12:01 | XRay Report ---
CHEST 1 VIEW INDICATION / CLINICAL INFORMATION: pain. COMPARISON: Chest radiograph 05/29/2019 FINDINGS: SUPPORT DEVICES: None. HEART / MEDIASTINUM: Stable enlargement of the cardiomediastinal silhouette. LUNGS / PLEURA: No focal pulmonary consolidation. No large pleural effusion. No pneumothorax. ADDITIONAL FINDINGS: No significant additional findings. IMPRESSION: 1. Stable cardiomegaly. No acute cardiopulmonary abnormality identified. Signer Name: Candy Grimaldo MD Signed: 06/04/2019 11:56 AM Workstation Name: [id number]
[2019-06-04] MEDS ORDERED: VITAMIN B-1 PO ONE (12:08)
[2019-06-04] MEDS ORDERED: THERAGRAN Tab PO ONE (12:08)
[2019-06-04 14:29] LABS: Bilirubin,Urine NEG (Negative); Blood,Urine NEG (Negative); Color,Urine Yellow (Yellow); Mucus,Urine FEW /HPF; Protein,Urine <15 mg/dL mg/dL (Negative)
[2019-06-04 14:36] LABS: Amphetamine Screen,Urine PRESUMPTIVE NEGATIVE; Cannabinoid Screen,Urine PRESUMPTIVE NEGATIVE; Cocaine Screen,Urine PRESUMPTIVE NEGATIVE; Methadone Screen,Urine PRESUMPTIVE NEGATIVE; Opiate Screen,Urine PRESUMPTIVE NEGATIVE
--- NOTE | 2019-06-04 14:38 | Event Note ---
Date: 06/04/19 CHF JOCE Needs f/u with [facility] Prescriptions given
[2019-06-04 14:47] LABS: Benzodiazepines Screen,Urine PRESUMPTIVE POSITIVE
[2019-06-04 19:15] VITALS: BP 141/104
== END 2019-06-04 19:15 | disposition admitted as inpatient to this hospital (09) ==
LOC: ED 09:44
DX: F10.129 Alcohol abuse with intoxication, unspecified (principal); N17.9 Acute kidney failure, unspecified; I11.0 Hypertensive heart disease with heart failure; I50.9 Heart failure, unspecified; M19.90 Unspecified osteoarthritis, unspecified site; Z79.899 Other long term (current) drug therapy; Z88.6 Allergy status to analgesic agent; Z88.8 Allergy status to other drugs, medicaments and biological substances
CPT/HCPCS: 36415; 71045; 80048; 80076; 80307; 80320; 81001; 83880; 85025; 93005; 93010; G0480

== ENCOUNTER 2019-06-15 23:15 | Emergency (ER) | payer MEDICAID ==
[2019-06-15] MEDS ORDERED: SODIUM CHLORIDE 0.9% 1000 ML 1,000 ML IV ONE (23:54)
--- NOTE | 2019-06-16 00:03 | XRay Report ---
CHEST 1 VIEW 06/15/2019 11:43 PM INDICATION / CLINICAL INFORMATION: Chest Pain. COMPARISON: Chest x-ray on 06/04/2019. FINDINGS: SUPPORT DEVICES: None. HEART / MEDIASTINUM: Stable moderate cardiomegaly. LUNGS / PLEURA: No significant pulmonary or pleural abnormality. No pneumothorax. ADDITIONAL FINDINGS: No significant additional findings. IMPRESSION: 1. No acute findings. Stable cardiomegaly. Signer Name: Guillermo Farnsworth MD Signed: 06/15/2019 11:59 PM Workstation Name: [id number]
[2019-06-16 00:32] LABS: Hematocrit 32.9 % (35.5-45.6); Hemoglobin 10.3 gm/dl (11.8-15.2); Mean Corpuscular HGB Conc 31 % (32-34); Mean Corpuscular Volume 92 fl (84-94); Platelet Count 110 K/mm3 (140-440); Red Blood Count 3.59 M/mm3 (3.65-5.03)
[2019-06-16 00:51] LABS: Calcium 8.3 mg/dL (8.4-10.2)
[2019-06-16 00:57] LABS: Red Cell Distribution Width 20.2 % (13.2-15.2)
[2019-06-16] MEDS ORDERED: SODIUM CHLORIDE 0.9% 1000 ML 1,000 ML ONE (01:31)
--- NOTE | 2019-06-16 02:12 | Emergency Department Report ---
ED General Adult HPI - General Chief complaint: Chest Pain Stated complaint: CHEST PAIN/ETOH Time Seen by Provider: 06/15/19 23:23 Source: EMS Mode of arrival: Stretcher Limitations: No Limitations - History of Present Illness Initial comments: 53-year-old male presents to ED with alcohol intoxication. Patient states there are too many people in his apartment, states he attempted to get them to leave, but they will not. Patient states he came to the ER to get away from them. Patient states he drank a pint of alcohol. History of alcohol abuse. Patient initially complained of chest pain, however currently denies. Patient does have a history of CHF with ejection fraction of 15-30% -: This evening - Related Data Previous Rx's Medication Instructions Recorded Last Taken Type Apixaban [Eliquis] 5 mg PO Q12HR #60 tablet 04/08/19 Unknown Rx Famotidine [Pepcid] 20 mg PO BID #60 tablet 04/08/19 Unknown Rx Folic Acid [Folvite] 1 mg PO QDAY #30 tablet 04/08/19 Unknown Rx Furosemide [Lasix TAB] 40 mg PO DAILY #30 tablet 04/08/19 Unknown Rx Losartan [Cozaar] 50 mg PO QDAY #30 tablet 04/08/19 Unknown Rx Metoprolol [Lopressor TAB] 50 mg PO BID #60 tablet 04/08/19 Unknown Rx Spironolactone [Aldactone] 25 mg PO QDAY #30 tablet 04/08/19 Unknown Rx cloNIDine [Catapres] 0.1 mg PO BID #60 tablet 04/26/19 Unknown Rx Multivitamin with Folic Acid [Cvs 400 mcg PO QDAY #30 tablet 05/13/19 Unknown Rx One Daily Essential Tablet] Thiamine [Vitamin B-1] 100 mg PO QDAY #30 tablet 05/13/19 Unknown Rx chlordiazePOXIDE [Librium] 25 mg PO Q6H PRN #25 capsule 05/13/19 Unknown Rx Allergies Allergy/AdvReac Type Severity Reaction Status Date / Time indomethacin [From Indocin] Allergy Unknown Verified 11/22/15 18:37 indomethacin sodium Allergy Unknown Verified 11/22/15 18:37 [From Indocin] lisinopril Allergy Angioedema Verified 04/26/19 15:12 ED Review of Systems ROS: Stated complaint: CHEST PAIN/ETOH Other details as noted in HPI Comment: All other systems reviewed and negative Respiratory: shortness of breath Cardiovascular: chest pain ED Past Medical Hx - Past Medical History Hx Hypertension: Yes Hx CVA: No Hx Heart Attack/AMI: Yes Hx Congestive Heart Failure: Yes Hx Diabetes: No Hx Arthritis: Yes Hx Headaches / Migraines: No Hx Seizures: No Hx Psychiatric Treatment: Yes (Alcohol Abuse, Depression) Hx Asthma: No Hx COPD: No Hx Dementia: No Hx HIV: No Additional medical history: lupus, gout. Dermititis, Eczema. Backache. afib - Surgical History Hx Pacemaker: No - Social History Smoking Status: Never Smoker Substance Use Type: None - Medications Home Medications: Home Medications Medication Instructions Recorded Confirmed Last Taken Type Apixaban [Eliquis] 5 mg PO Q12HR #60 tablet 04/08/19 05/29/19 Unknown Rx Famotidine [Pepcid] 20 mg PO BID #60 tablet 04/08/19 05/29/19 Unknown Rx Folic Acid [Folvite] 1 mg PO QDAY #30 tablet 04/08/19 05/29/19 Unknown Rx Furosemide [Lasix TAB] 40 mg PO DAILY #30 tablet 04/08/19 05/29/19 Unknown Rx Losartan [Cozaar] 50 mg PO QDAY #30 tablet 04/08/19 05/29/19 Unknown Rx Metoprolol [Lopressor TAB] 50 mg PO BID #60 tablet 04/08/19 05/29/19 Unknown Rx Spironolactone [Aldactone] 25 mg PO QDAY #30 tablet 04/08/19 05/29/19 Unknown Rx cloNIDine [Catapres] 0.1 mg PO BID #60 tablet 04/26/19 05/29/19 Unknown Rx Multivitamin with Folic Acid [Cvs 400 mcg PO QDAY #30 tablet 05/13/19 05/29/19 Unknown Rx One Daily Essential Tablet] Thiamine [Vitamin B-1] 100 mg PO QDAY #30 tablet 05/13/19 05/29/19 Unknown Rx chlordiazePOXIDE [Librium] 25 mg PO Q6H PRN #25 capsule 05/13/19 05/29/19 Unknown Rx ED Physical Exam - General Limitations: No Limitations General appearance: alert, appears intoxicated - Head Head exam: Present: atraumatic, normocephalic - Eye Eye exam: Present: normal appearance - ENT ENT exam: Present: mucous membranes moist - Neck Neck exam: Present: normal inspection - Respiratory Respiratory exam: Present: normal lung sounds bilaterally. Absent: respiratory distress - Cardiovascular Cardiovascular Exam: Present: regular rate, normal rhythm - GI/Abdominal GI/Abdominal exam: Present: soft. Absent: distended, tenderness - Extremities Exam Extremities exam: Present: normal inspection - Neurological Exam Neurological exam: Present: alert, other (intoxicated) - Psychiatric Psychiatric exam: Present: normal affect, normal mood - Skin Skin exam: Present: warm, dry, intact, normal color ED Course Vital Signs 06/15/19 06/15/19 06/16/19 23:32 23:40 01:30 Temperature 97.8 F Pulse Rate 61 Respiratory 20 Rate Blood Pressure 94/52 90/51 O2 Sat by Pulse 97 98 98 Oximetry 06/16/19 06/16/19 03:08 03:22 Temperature Pulse Rate 62 Respiratory Rate Blood Pressure 115/79 O2 Sat by Pulse 91 Oximetry ED Medical Decision Making - Lab Data Result diagrams: 06/16/19 00:07 06/16/19 00:07 - EKG Data -: EKG Interpreted by Me Rate: normal - EKG Data When compared to previous EKG there are: no significant change (compared to 06/04/19) Interpretation: other (atrial flutter; RBBB; LAFB; old inferior infarct) - Radiology Data Radiology results: report reviewed, image reviewed - Medical Decision Making 53-year-old male presents to ED initially reported chest pain or shortness of breath. Patient reported to me that he wanted to get away from people that are living in his house. Currently denies chest pain. EKG is unchanged, showing right bundle corey block, left anterior fascicular block and atrial flutter with no ST elevations. His x-ray is normal, no pulmonary edema or any other abnormalities present. Alcohol level is currently 240. Patient is obviously intoxicated, however will hold off on IV fluids due to history of CHF and EF of 15-30%. We will observe him until clinically sober. - Differential Diagnosis CHF, ETOH intoxication, drug abuse Critical care attestation.: If time is entered above; I have spent that time in minutes in the direct care of this critically ill patient, excluding procedure time. ED Disposition Clinical Impression: Alcohol abuse Disposition: DC-01 TO HOME OR SELFCARE Is pt being admited?: No Condition: Stable Instructions: Alcohol Intoxication (ED) Referrals: [facility] [Provider Group] - 3-5 Days PRIMARY CARE, [Primary Care Provider] - 3-5 Days
[2019-06-16 03:12] VITALS: BP 115/79
[2019-06-16 04:55] LABS: Anisocytosis 1+; Ovalocytes Few; Total Cells Counted 100
[2019-06-16 04:56] LABS: Large Platelets 1+; Platelet Estimate Cons
== END 2019-06-16 06:08 | disposition home or self-care (01) ==
LOC: ED 23:15
DX: F10.129 Alcohol abuse with intoxication, unspecified (principal); I11.0 Hypertensive heart disease with heart failure; I50.9 Heart failure, unspecified; M19.90 Unspecified osteoarthritis, unspecified site; M10.9 Gout, unspecified; Z79.899 Other long term (current) drug therapy; Z88.6 Allergy status to analgesic agent
CPT/HCPCS: 36415; 71045; 80048; 85007; 85025; 93005; 93010; 99284; J7030; 80320; G0480

== ENCOUNTER 2019-10-12 11:32 | Inpatient (IN) | payer MEDICAID ==
--- NOTE | 2019-10-12 11:51 | Event Note ---
ED Screening Note Date of service: 10/12/19 Time: 11:48 ED Screening Note: 54 Y O F PRESENTS WITH SOB WAS SEEN B CARDIO TODAY AND WAS SENT TO ed FOR EVAL pmh: CHF AND LUPUS OUT OF ALL MEDS This initial assessment/diagnostic orders/clinical plan/treatment(s) is/are subject to change based on patients health status, clinical progression and re- assessment by fellow clinical providers in the ED. Further treatment and workup at subsequent clinical providers discretion. Patient/guardian urged not to elope from the ED as their condition may be serious if not clinically assessed and managed. Initial orders include: LABS, EKG,CXR MAIN SIDE EVAL
[2019-10-12] MEDS ORDERED: FUROSEMIDE 40 MG/4 ML INJ IV ONE ×2 (11:52→13:43)
[2019-10-12 12:30] LABS: Basophils # (Auto) 0.1 K/mm3 (0.0-0.1); Basophils % (Auto) 0.8 % (0.0-1.8); Eosinophils # (Auto) 0.1 K/mm3 (0.0-0.4); Eosinophils % (Auto) 1.5 % (0.0-4.3); Hematocrit 35.5 % (35.5-45.6); Hemoglobin 11.3 gm/dl (11.8-15.2); Lymphocytes # (Auto) 1.3 K/mm3 (1.2-5.4); Lymphocytes % (Auto) 21.1 % (13.4-35.0); Mean Corpuscular HGB Conc 32 % (32-34); Mean Corpuscular Volume 90 fl (84-94); Monocytes # (Auto) 0.7 K/mm3 (0.0-0.8); Monocytes % (Auto) 11.8 % (0.0-7.3); Platelet Count 182 K/mm3 (140-440); Red Blood Count 3.95 M/mm3 (3.65-5.03); Red Cell Distribution Width 18.2 % (13.2-15.2)
--- NOTE | 2019-10-12 12:35 | XRay Report ---
CHEST 2 VIEWS INDICATION: Dyspnea. COMPARISON: 06/15/2019 FINDINGS: Support devices: None. Heart: Persisting cardiac enlargement Lungs: Bronchovascular markings are prominent Pleura: No significant pleural effusion. No pneumothorax. Additional findings: None. IMPRESSION: 1. Mild pulmonary edema is a concern. Signer Name: Alessandro Francis MD Signed: 10/12/2019 12:31 PM Workstation Name: [id number]
[2019-10-12 12:39] LABS: INR 1.55 (0.87-1.13)
[2019-10-12 12:55] LABS: Creatine Kinase MB 1.7 ng/mL (0.0-4.0)
[2019-10-12 12:57] LABS: Alanine Aminotransferase 17 units/L (7-56); Albumin 3.4 g/dL (3.9-5); BUN/Creatinine Ratio 13; Blood Urea Nitrogen 13 mg/dL (9-20); Hemolysis Index 25
--- NOTE | 2019-10-12 13:47 | History and Physical Report ---
History of Present Illness Chief complaint: I cant breathe, and i ran out of my medicine a couple months ago History of present illness: 54 YO Male with ETOH Dependence, Obesity, HTN, Systolic CHF(EF 10%), OA, Obesity Hypoventilation, Depression, SLE, Gout, Eczema, Lumbar Pain, Atrial Fib on therapeutic Anticoagulation, Medication Noncompliance presents to ED for evaluation. Pt states that he has experienced shortness of breath and generalized edema over the past 1 week with progressively worsening symptoms over the past 2 days. 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 Patient was instructed to seek further care at [facility]. Patient seen and evaluated in the emergency department. Lab and imaging studies reviewed. Pt acknowledges orthopnea/PND, decreased exercise tolerance, dypsnea at rest, dypsnea on exertion, bilateral lower extremity edema, noncompliance with cardiac diet, as well as 20 lbs weight gain over the past 2 weeks. Pt denies Fever, Chills, CP, Palpitations, NVD, Trauma, Productive Cough, BRBPR, Unintentional weight loss, prolonged travel/immobility, unilateral leg swelling, calf pain, hemoptysis, skin rash or recent ill contacts. Pt seen and evaluated in ED and found to have CHF Decompensation as well as acute hypoxemic respiratory failure. Pt admitted to telemetry and initiated on CHF protocol. Prior admission on 05/29/2019 reviewed. All listed medication reviewed at time of admission. Extra 30 minutes dedicated to discussion of plan of care. Pt acknowledges understanding and agreement with care plan. Past History Past Medical History: atrial fib, heart failure, hypertension, other (Obesity hypoventilation, see HPI) Past Surgical History: No surgical history, Other (Reviewed) Social history: single. denies: smoking, alcohol abuse, prescription drug abuse Family history: hypertension Medications and Allergies Allergies Allergy/AdvReac Type Severity Reaction Status Date / Time indomethacin [From Indocin] Allergy Unknown Verified 11/22/15 18:37 indomethacin sodium Allergy Unknown Verified 11/22/15 18:37 [From Indocin] lisinopril Allergy Angioedema Verified 04/26/19 15:12 Home Medications Medication Instructions Recorded Confirmed Last Taken Type Apixaban [Eliquis] 5 mg PO Q12HR #60 tablet 04/08/19 05/29/19 Unknown Rx Famotidine [Pepcid] 20 mg PO BID #60 tablet 04/08/19 05/29/19 Unknown Rx Folic Acid [Folvite] 1 mg PO QDAY #30 tablet 04/08/19 05/29/19 Unknown Rx Furosemide [Lasix TAB] 40 mg PO DAILY #30 tablet 04/08/19 05/29/19 Unknown Rx Losartan [Cozaar] 50 mg PO QDAY #30 tablet 04/08/19 05/29/19 Unknown Rx Metoprolol [Lopressor TAB] 50 mg PO BID #60 tablet 04/08/19 05/29/19 Unknown Rx Spironolactone [Aldactone] 25 mg PO QDAY #30 tablet 04/08/19 05/29/19 Unknown Rx cloNIDine [Catapres] 0.1 mg PO BID #60 tablet 04/26/19 05/29/19 Unknown Rx Multivitamin with Folic Acid [Cvs 400 mcg PO QDAY #30 tablet 05/13/19 05/29/19 Unknown Rx One Daily Essential Tablet] Thiamine [Vitamin B-1] 100 mg PO QDAY #30 tablet 05/13/19 05/29/19 Unknown Rx chlordiazePOXIDE [Librium] 25 mg PO Q6H PRN #25 capsule 05/13/19 05/29/19 Unknown Rx Review of Systems Constitutional: weight gain, no weight loss, no fever, no chills Ears, nose, mouth and throat: no ear pain, no ear discharge, no tinnitis, no decreased hearing, no nose pain Cardiovascular: orthopnea, shortness of breath, dyspnea on exertion, paroxysmal nocturnal dyspnea, leg edema, decreased exercise tolerance, no chest pain, no palpitations Respiratory: no cough, no cough with sputum, no excessive sputum, no hemoptysis Gastrointestinal: no abdominal pain, no nausea, no vomiting, no diarrhea Genitourinary Male: no hematuria, no flank pain, no discharge, no urinary frequency, no urinary hesitancy Rectal: no pain, no incontinence, no bleeding Musculoskeletal: no neck stiffness, no neck pain, no shooting arm pain, no arm numbness/tingling, no low back pain Integumentary: no rash, no pruritis, no redness, no sores, no wounds Neurological: no head injury, no transient paralysis, no paralysis, no weakness, no parathesias, no numbness Psychiatric: no anxiety, no memory loss, no change in sleep habits, no sleep disturbances, no insomnia, no hypersomnia Endocrine: no cold intolerance, no heat intolerance, no polyphagia, no excessive thirst Hematologic/Lymphatic: no easy bruising, no easy bleeding, no lymphadenopathy, no lymphedema Allergic/Immunologic: no urticaria, no allergic rhinitis, no anaphylaxis Exam - Constitutional Vitals: Temp Pulse Resp BP Pulse Ox 97.7 F 56 L 18 190/131 100 10/12/19 11:36 10/12/19 11:47 10/12/19 11:47 10/12/19 11:47 10/12/19 11:47 General appearance: Present: mild distress - EENT Eyes: Present: PERRL ENT: hearing intact, clear oral mucosa - Neck Neck: Present: supple, normal ROM - Respiratory Respiratory effort: normal Respiratory: bilateral: CTA - Cardiovascular Heart Sounds: Present: S1 & S2. Absent: rub, click - Extremities Extremities: pulses symmetrical Extremity abnormal: edema Peripheral Pulses: within normal limits - Abdominal General gastrointestinal: Present: soft, non-tender, non-distended, normal bowel sounds Male genitourinary: Present: normal - Integumentary Integumentary: Present: clear, warm, dry - Musculoskeletal Musculoskeletal: generalized weakness - Psychiatric Psychiatric: appropriate mood/affect, intact judgment & insight - Neurologic Neurologic: CNII-XII intact, moves all extremities Results - Labs CBC & Chem 7: 10/12/19 12:14 10/12/19 12:14 Labs: Abnormal lab results 10/12/19 10/12/19 10/12/19 Range/Units 12:14 12:14 12:14 Hgb 11.3 L (11.8-15.2) gm/dl RDW 18.2 H (13.2-15.2) % [place] % (Auto) 11.8 H (0.0-7.3) % PT 18.8 H (12.2-14.9) Sec. INR 1.55 H (0.87-1.13) Sodium 136 L (137-145) mmol/L Carbon Dioxide 20 L (22-30) mmol/L Total Bilirubin 3.00 H (0.1-1.2) mg/dL Alkaline Phosphatase 150 H (35-129) units/L NT-Pro-B Natriuret Pep (0-900) pg/mL Total Protein 9.7 H (6.3-8.2) g/dL Albumin 3.4 L (3.9-5) g/dL 10/12/19 Range/Units 12:14 Hgb (11.8-15.2) gm/dl RDW (13.2-15.2) % [place] % (Auto) (0.0-7.3) % PT (12.2-14.9) Sec. INR (0.87-1.13) Sodium (137-145) mmol/L Carbon Dioxide (22-30) mmol/L Total Bilirubin (0.1-1.2) mg/dL Alkaline Phosphatase (35-129) units/L NT-Pro-B Natriuret Pep 968.2 H (0-900) pg/mL Total Protein (6.3-8.2) g/dL Albumin (3.9-5) g/dL Assessment and Plan - Patient Problems (1) Acute on chronic systolic (congestive) heart failure Current Visit: No Status: Acute Plan to address problem: Submental oxygen, strict I's/O, daily weight, BNP, thyroid panel, echo reviewed from 04/09, cardiology consulted, pulse oximetry, chest x-ray, magnesium level, diuresis, monitoring urine output every shift. (2) Alcoholic liver disease Current Visit: No Status: Acute Plan to address problem: Supportive care, behavior change counseling, abstinence from alcohol use. (3) Obesity hypoventilation syndrome Current Visit: Yes Status: Acute Plan to address problem: Submental oxygen, nebulizer therapy, pulse oximetry, chest x-ray, incentive spirometry. (4) Atrial fibrillation with rapid ventricular response Current Visit: No Status: Acute Plan to address problem: Supportive care, remote telemetry monitoring, rate control, therapeutic anticoagulation. Cardiology consulted. (5) Acute hypoxemic respiratory failure Current Visit: Yes Status: Acute Plan to address problem: Supplemental oxygen, nebulizer therapy, chest x-ray, pulse oximetry, continue therapeutic anticoagulation, CTA chest, noninvasive positive pressure ventilation as clinically indicated. (6) Hypertension Current Visit: Yes Status: Acute Qualifiers: Hypertension type: essential hypertension Qualified Code(s): I10 - Essential (primary) hypertension Plan to address problem: Monitor BP every shift, continue supportive care. (7) Depression Current Visit: Yes Status: Acute Plan to address problem: Supportive care, outpatient psychiatry follow-up. Continue medical management. (8) Osteoarthritis Current Visit: Yes Status: Acute Qualifiers: Laterality: unspecified laterality Plan to address problem: Pain control, supportive care, NSAID therapy as tolerated. (9) DVT prophylaxis Current Visit: Yes Status: Acute Plan to address problem: Continue therapeutic anticoagulation with Eliquis, SCD to bilateral lower extremities while in bed.
[2019-10-12] MEDS ORDERED: ONDANSETRON 4 MG/2 ML INJ IV PRN (13:48)
--- NOTE | 2019-10-12 13:48 | Emergency Department Report ---
ED General Adult HPI - General Chief complaint: Dyspnea/Respdistress Stated complaint: CHEST PAIN/FLUID AROUND HEART Time Seen by Provider: 10/12/19 13:20 Source: patient Mode of arrival: Ambulatory Limitations: No Limitations - History of Present Illness Initial comments: Patient presents to the emergency from [facility] for shortness of breath. Patient states she has a history of congestive heart failure has been out of his medications for the last couple months. Patient complains of increased shortness of breath with walking or lying flat. Per the patient is O2 sats were low at his doctor's office and was placed on O2 via nasal cannula and sent to the emergency department. Patient denies any chest pain or abdominal pain. She states couple weeks ago he weight 210 pounds and currently weighs 230 pounds. -: Gradual Severity scale (0 -10): 0 Consistency: constant Improves with: rest Worsens with: movement Associated Symptoms: denies other symptoms Treatments Prior to Arrival: none - Related Data Previous Rx's Medication Instructions Recorded Last Taken Type Apixaban [Eliquis] 5 mg PO Q12HR #60 tablet 04/08/19 Unknown Rx Famotidine [Pepcid] 20 mg PO BID #60 tablet 04/08/19 Unknown Rx Folic Acid [Folvite] 1 mg PO QDAY #30 tablet 04/08/19 Unknown Rx Furosemide [Lasix TAB] 40 mg PO DAILY #30 tablet 04/08/19 Unknown Rx Losartan [Cozaar] 50 mg PO QDAY #30 tablet 04/08/19 Unknown Rx Metoprolol [Lopressor TAB] 50 mg PO BID #60 tablet 04/08/19 Unknown Rx Spironolactone [Aldactone] 25 mg PO QDAY #30 tablet 04/08/19 Unknown Rx cloNIDine [Catapres] 0.1 mg PO BID #60 tablet 04/26/19 Unknown Rx Multivitamin with Folic Acid [[facility]vs 400 mcg PO QDAY #30 tablet 05/13/19 Unknown Rx One Daily Essential Tablet] Thiamine [Vitamin B-1] 100 mg PO QDAY #30 tablet 05/13/19 Unknown Rx chlordiazePOXIDE [Librium] 25 mg PO Q6H PRN #25 capsule 05/13/19 Unknown Rx Allergies Allergy/AdvReac Type Severity Reaction Status Date / Time indomethacin [From Indocin] Allergy Unknown Verified 11/22/15 18:37 indomethacin sodium Allergy Unknown Verified 11/22/15 18:37 [From Indocin] lisinopril Allergy Angioedema Verified 04/26/19 15:12 ED Review of Systems ROS: Stated complaint: CHEST PAIN/FLUID AROUND HEART Other details as noted in HPI Constitutional: denies: chills, fever Eyes: denies: eye pain, eye discharge, vision change ENT: denies: ear pain, throat pain Respiratory: shortness of breath, SOB with exertion, SOB at rest. denies: cough, wheezing Cardiovascular: denies: chest pain, palpitations Endocrine: no symptoms reported Gastrointestinal: denies: abdominal pain, nausea, diarrhea Genitourinary: denies: urgency, dysuria Musculoskeletal: denies: back pain, joint swelling, arthralgia Skin: denies: rash, lesions Neurological: denies: headache, weakness, paresthesias Psychiatric: denies: anxiety, depression Hematological/Lymphatic: denies: easy bleeding, easy bruising ED Past Medical Hx - Past Medical History Previous Medical History?: Yes Hx Hypertension: Yes Hx CVA: No Hx Heart Attack/AMI: Yes Hx Congestive Heart Failure: Yes Hx Diabetes: No Hx Arthritis: Yes Hx Headaches / Migraines: No Hx Seizures: No Hx Psychiatric Treatment: Yes (Alcohol Abuse, Depression) Hx Asthma: No Hx COPD: No Hx Dementia: No Hx HIV: No Additional medical history: lupus, gout. Dermititis, Eczema. Backache. afib - Surgical History Past Surgical History?: No Hx Pacemaker: No - Social History Smoking Status: Never Smoker Substance Use Type: None - Medications Home Medications: Home Medications Medication Instructions Recorded Confirmed Last Taken Type Apixaban [Eliquis] 5 mg PO Q12HR #60 tablet 04/08/19 05/29/19 Unknown Rx Famotidine [Pepcid] 20 mg PO BID #60 tablet 04/08/19 05/29/19 Unknown Rx Folic Acid [Folvite] 1 mg PO QDAY #30 tablet 04/08/19 05/29/19 Unknown Rx Furosemide [Lasix TAB] 40 mg PO DAILY #30 tablet 04/08/19 05/29/19 Unknown Rx Losartan [Cozaar] 50 mg PO QDAY #30 tablet 04/08/19 05/29/19 Unknown Rx Metoprolol [Lopressor TAB] 50 mg PO BID #60 tablet 04/08/19 05/29/19 Unknown Rx Spironolactone [Aldactone] 25 mg PO QDAY #30 tablet 04/08/19 05/29/19 Unknown Rx cloNIDine [Catapres] 0.1 mg PO BID #60 tablet 04/26/19 05/29/19 Unknown Rx Multivitamin with Folic Acid [Cvs 400 mcg PO QDAY #30 tablet 05/13/19 05/29/19 Unknown Rx One Daily Essential Tablet] Thiamine [Vitamin B-1] 100 mg PO QDAY #30 tablet 05/13/19 05/29/19 Unknown Rx chlordiazePOXIDE [Librium] 25 mg PO Q6H PRN #25 capsule 05/13/19 05/29/19 Unknown Rx ED Physical Exam - General Limitations: No Limitations General appearance: alert, in no apparent distress - Head Head exam: Present: atraumatic, normocephalic - Eye Eye exam: Present: normal appearance, PERRL, EOMI - ENT ENT exam: Present: mucous membranes moist - Neck Neck exam: Present: normal inspection - Respiratory Respiratory exam: Present: rales. Absent: respiratory distress - Cardiovascular Cardiovascular Exam: Present: normal rhythm, tachycardia, irregular rhythm. Absent: systolic murmur, diastolic murmur, rubs, gallop - GI/Abdominal GI/Abdominal exam: Present: soft, normal bowel sounds. Absent: distended, tenderness - Rectal Rectal exam: Present: deferred - Extremities Exam Extremities exam: Present: other (pitting edema) - Back Exam Back exam: Present: normal inspection - Neurological Exam Neurological exam: Present: alert, oriented X3 - Psychiatric Psychiatric exam: Present: normal affect, normal mood - Skin Skin exam: Present: warm, dry, intact, normal color. Absent: rash ED Course Vital Signs 10/12/19 10/12/19 11:36 11:47 Temperature 97.7 F Pulse Rate 48 L 56 L Respiratory 16 18 Rate Blood Pressure 156/118 190/131 O2 Sat by Pulse 86 100 Oximetry ED Medical Decision Making - Lab Data Result diagrams: 10/12/19 12:14 10/12/19 12:14 Lab Results 10/12/19 10/12/19 10/12/19 Range/Units 12:14 12:14 12:14 WBC 6.2 (4.5-11.0) K/mm3 RBC 3.95 (3.65-5.03) M/mm3 Hgb 11.3 L (11.8-15.2) gm/dl Hct 35.5 (35.5-45.6) % MCV 90 (84-94) fl MCH 29 (28-32) pg MCHC 32 (32-34) % RDW 18.2 H (13.2-15.2) % Plt Count 182 (140-440) K/mm3 Lymph % (Auto) 21.1 (13.4-35.0) % [place] % (Auto) 11.8 H (0.0-7.3) % Eos % (Auto) 1.5 (0.0-4.3) % Baso % (Auto) 0.8 (0.0-1.8) % Lymph # 1.3 (1.2-5.4) K/mm3 [place] # 0.7 (0.0-0.8) K/mm3 Eos # 0.1 (0.0-0.4) K/mm3 Baso # 0.1 (0.0-0.1) K/mm3 Seg Neutrophils % 64.8 (40.0-70.0) % Seg Neutrophils # 4.0 (1.8-7.7) K/mm3 PT 18.8 H (12.2-14.9) Sec. INR 1.55 H (0.87-1.13) APTT 36.0 (24.2-36.6) Sec. Sodium 136 L (137-145) mmol/L Potassium 4.4 (3.6-5.0) mmol/L Chloride 102.0 (98-107) mmol/L Carbon Dioxide 20 L (22-30) mmol/L Anion Gap 18 mmol/L BUN 13 (9-20) mg/dL Creatinine 1.0 (0.8-1.5) mg/dL Estimated GFR > 60 ml/min BUN/Creatinine Ratio 13 % Glucose 94 (75-100) mg/dL Calcium 9.0 (8.4-10.2) mg/dL Total Bilirubin 3.00 H (0.1-1.2) mg/dL AST 39 (5-40) units/L ALT 17 (7-56) units/L Alkaline Phosphatase 150 H (35-129) units/L CK-MB (CK-2) (0.0-4.0) ng/mL Troponin T (0.00-0.029) ng/mL NT-Pro-B Natriuret Pep (0-900) pg/mL Total Protein 9.7 H (6.3-8.2) g/dL Albumin 3.4 L (3.9-5) g/dL Albumin/Globulin Ratio 0.5 % 10/12/19 10/12/19 Range/Units 12:14 12:14 WBC (4.5-11.0) K/mm3 RBC (3.65-5.03) M/mm3 Hgb (11.8-15.2) gm/dl Hct (35.5-45.6) % MCV (84-94) fl MCH (28-32) pg MCHC (32-34) % RDW (13.2-15.2) % Plt Count (140-440) K/mm3 Lymph % (Auto) (13.4-35.0) % [place] % (Auto) (0.0-7.3) % Eos % (Auto) (0.0-4.3) % Baso % (Auto) (0.0-1.8) % Lymph # (1.2-5.4) K/mm3 [place] # (0.0-0.8) K/mm3 Eos # (0.0-0.4) K/mm3 Baso # (0.0-0.1) K/mm3 Seg Neutrophils % (40.0-70.0) % Seg Neutrophils # (1.8-7.7) K/mm3 PT (12.2-14.9) Sec. INR (0.87-1.13) APTT (24.2-36.6) Sec. Sodium (137-145) mmol/L Potassium (3.6-5.0) mmol/L Chloride (98-107) mmol/L Carbon Dioxide (22-30) mmol/L Anion Gap mmol/L BUN (9-20) mg/dL Creatinine (0.8-1.5) mg/dL Estimated GFR ml/min BUN/Creatinine Ratio % Glucose (75-100) mg/dL Calcium (8.4-10.2) mg/dL Total Bilirubin (0.1-1.2) mg/dL AST (5-40) units/L ALT (7-56) units/L Alkaline Phosphatase (35-129) units/L CK-MB (CK-2) 1.7 (0.0-4.0) ng/mL Troponin T < 0.010 (0.00-0.029) ng/mL NT-Pro-B Natriuret Pep 968.2 H (0-900) pg/mL Total Protein (6.3-8.2) g/dL Albumin (3.9-5) g/dL Albumin/Globulin Ratio % - EKG Data -: EKG Interpreted by Me EKG shows normal: sinus rhythm - EKG Data Interpretation: other (afib) - Radiology Data Radiology results: report reviewed - Medical Decision Making IV lasix given Critical Care Time: Yes Critical care time in (mins) excluding proc time.: 35 Critical care attestation.: If time is entered above; I have spent that time in minutes in the direct care of this critically ill patient, excluding procedure time. ED Disposition Clinical Impression: CHF (congestive heart failure), Afib Disposition: 09 OP ADMIT IP TO THIS HOSP Is pt being admited?: Yes Does the pt Need Aspirin: Yes Condition: Fair
[2019-10-12] MEDS ORDERED: chlordiazePOXIDE 25 MG CAP PO PRN (13:51)
[2019-10-12 14:09] LABS: Bilirubin,Direct 1.5 mg/dL (0-0.2)
--- NOTE | 2019-10-12 15:51 | Cat Scan Report ---
CTA CHEST WITH CONTRAST INDICATION : dyspnea. TECHNIQUE: Axial imaging performed through the chest, with contrast bolus timing set to maximize opa cification of the pulmonary arteries. 3-plane MIP reformatted images were obtained. All CT scans at this location are performed using CT dose reduction for ALARA by means of automated exposure control. 100 mL of intravenous contrast administered. Consent was obtained prior to the administration of cont rast. COMPARISON: 04/03/2019 FINDINGS: Bolus: Contrast bolus timing is adequate. PTE: No filling defect is present to suggest PTE. Mediastinum: Moderate cardiomegaly and a small pericardial effusion. Mediastinal lymphadenopathy wi th larger lymph nodes in the preaortic, AP window and retrocaval pretracheal spaces. The largest medi astinal lymph node is a right retrocaval paratracheal lymph node measuring 2.0 x 1.5 cm. Right hilar lymphadenopathy with lymph nodes nodes measuring 2.4 x 1.8 cm and 2.9 x 1.4 cm. Lungs: Lungs are clear. A large right pleural effusion and partial atelectasis of the right lower lo be. Upper abdomen: Limited imaging of the upper abdomen reveals hepatic congestion with enlargement of t he hepatic veins and IVC. Moderate ascites. Bones: No suspicious bone lesions. IMPRESSION: 1. Negative for pulmonary embolus. 2. Right heart failure with a large right pleural effusion and hepatic congestion. 3. Mediastinal and right hilar lymphadenopathy of uncertain etiology. Lymph nodes have enlarged since the last exam. 4. No pulmonary edema and no pneumonia. Signer Name: Víctor Mccarty MD Signed: 10/12/2019 3:47 PM Workstation Name: [id number]
[2019-10-12 17:41] LABS: Free T4 (Free Thyroxine) 1.57 ng/dL (0.76-1.46)
[2019-10-12] MEDS: FUROSEMIDE 40 MG/4 ML INJ IV SCH (18:52)
[2019-10-12] MEDS: FAMOTIDINE 20 MG TAB PO SCH (22:30)
[2019-10-12] MEDS: METOPROLOL TARTRATE 50 MG TAB PO SCH (22:30)
[2019-10-12] MEDS: APIXABAN 5 MG TAB PO SCH (22:30)
[2019-10-12] MEDS: cloNIDine 0.1 MG TAB PO SCH (22:31)
[2019-10-13] MEDS: FUROSEMIDE 40 MG/4 ML INJ IV SCH ×2 (06:50→18:18)
[2019-10-13 06:58] LABS: BUN/Creatinine Ratio 16; Blood Urea Nitrogen 21 mg/dL (9-20); Calcium 9.5 mg/dL (8.4-10.2); Hemolysis Index 3
[2019-10-13] MEDS: METOPROLOL TARTRATE 50 MG TAB PO SCH ×2 (09:18→22:55)
[2019-10-13] MEDS: LOSARTAN 50 MG TAB PO SCH (09:18)
[2019-10-13] MEDS: FOLIC ACID 1 MG TAB PO SCH (09:19)
[2019-10-13] MEDS: THIAMINE 100 MG TAB PO SCH (09:19)
[2019-10-13] MEDS: SPIRONOLACTONE 25 MG TAB PO SCH (09:19)
[2019-10-13] MEDS: MULTIVITAMINS ,THERAPEUTIC TAB PO SCH (09:19)
[2019-10-13] MEDS: FAMOTIDINE 20 MG TAB PO SCH ×2 (09:19→22:55)
[2019-10-13] MEDS: cloNIDine 0.1 MG TAB PO SCH ×2 (09:19→22:56)
[2019-10-13] MEDS: APIXABAN 5 MG TAB PO SCH ×2 (09:19→22:55)
--- NOTE | 2019-10-13 09:52 | Consultation ---
History of Present Illness Consult date: 10/13/19 Consult reason: congestive heart failure History of present illness: This is a 54 year old male with multiple medical problems. He has chronic atrial flutter, previously recommended Eliquis for oral anticoagulation. He has severe dilated cardiomyopathy. An echocardiogram done 6 months ago reports severely decreased left ventricular ejection fraction 15-20%. There was severe dilation of the right heart chambers, flattening of the interventricular septum, dilated IVC, all suggestive of chronic cor pulmonale. Co-morbidities includes alcoholic liver disease, hypertension, known non-compliance with medications and outpatient cardiac follow ups. Patient is admitted with decompensated heart failure secondary to noncompliance with his medications and dietary restrictions. Initial labs shows an elevated bilirubin, INR at 1.55. A chest CTA is negative for PE. An ECG is atrial flutter, LVH with a chronic RBBB. A cardiac consultation has been requested for management of CHF. Past History Past Medical History: atrial fib, heart failure, hypertension, other (Obesity hypoventilation) Social history: single Family history: hypertension Medications and Allergies Allergies Allergy/AdvReac Type Severity Reaction Status Date / Time indomethacin [From Indocin] Allergy Unknown Verified 11/22/15 18:37 indomethacin sodium Allergy Unknown Verified 11/22/15 18:37 [From Indocin] lisinopril Allergy Angioedema Verified 04/26/19 15:12 Home Medications Medication Instructions Recorded Confirmed Last Taken Type Apixaban [Eliquis] 5 mg PO Q12HR #60 tablet 04/08/19 10/12/19 07/22/19 Rx Famotidine [Pepcid] 20 mg PO BID #60 tablet 04/08/19 10/12/19 07/22/19 Rx Folic Acid [Folvite] 1 mg PO QDAY #30 tablet 04/08/19 10/12/19 07/22/19 Rx Furosemide [Lasix TAB] 40 mg PO DAILY #30 tablet 04/08/19 10/12/19 07/22/19 Rx Losartan [Cozaar] 50 mg PO QDAY #30 tablet 04/08/19 10/12/19 07/22/19 Rx Metoprolol [Lopressor TAB] 50 mg PO BID #60 tablet 04/08/19 10/12/19 07/22/19 Rx Spironolactone [Aldactone] 25 mg PO QDAY #30 tablet 04/08/19 10/12/19 07/22/19 Rx cloNIDine [Catapres] 0.1 mg PO BID #60 tablet 04/26/19 10/12/19 07/22/19 Rx Multivitamin with Folic Acid [Cvs 400 mcg PO QDAY #30 tablet 05/13/19 10/12/19 07/22/19 Rx One Daily Essential Tablet] Thiamine [Vitamin B-1] 100 mg PO QDAY #30 tablet 05/13/19 10/12/19 07/22/19 Rx chlordiazePOXIDE [Librium] 25 mg PO Q6H PRN #25 capsule 05/13/19 10/12/19 07/22/19 Rx Active Meds: Active Medications Acetaminophen (Tylenol) 650 mg PO Q4H PRN PRN Reason: Pain MILD(1-3)/Fever >100.5/GARCIA Apixaban (Eliquis) 5 mg PO Q12HR [facility]; Protocol Last Admin: 10/13/19 09:19 Dose: 5 mg Documented by: Chlordiazepoxide HCl (Librium) 25 mg PO Q6H PRN PRN Reason: Alcohol Withdrawal Clonidine HCl (Catapres) 0.1 mg PO BID [facility] Last Admin: 10/13/19 09:19 Dose: 0.1 mg Documented by: Famotidine (Pepcid) 20 mg PO BID [facility] Last Admin: 10/13/19 09:19 Dose: 20 mg Documented by: Folic Acid (Folvite) 1 mg PO QDAY [facility] Last Admin: 10/13/19 09:19 Dose: 1 mg Documented by: Furosemide (Lasix) 40 mg IV BID@0600,1800 [facility] Last Admin: 10/13/19 06:50 Dose: 40 mg Documented by: Losartan Potassium (Cozaar) 50 mg PO QDAY [facility] Last Admin: 10/13/19 09:18 Dose: 50 mg Documented by: Metoprolol Tartrate (Metoprolol) 50 mg PO BID [facility] Last Admin: 10/13/19 09:18 Dose: 50 mg Documented by: Multivitamins (Theragran Tab) 1 each PO QDAY [facility] Last Admin: 10/13/19 09:19 Dose: 1 each Documented by: Ondansetron HCl (Zofran) 4 mg IV Q8H PRN PRN Reason: Nausea And Vomiting Pneumococcal Polyvalent Vaccine (Pneumovax 23) 0.5 ml IM .ONCE ONE Stop: 10/13/19 12:01 Sodium Chloride (Sodium Chloride Flush Syringe 10 Ml) 10 ml IV BID [facility] Last Admin: 10/13/19 09:19 Dose: 10 ml Documented by: Sodium Chloride (Sodium Chloride Flush Syringe 10 Ml) 10 ml IV PRN PRN PRN Reason: LINE FLUSH Last Admin: 10/13/19 06:50 Dose: 10 ml Documented by: Spironolactone (Aldactone) 25 mg PO QDAY [facility] Last Admin: 10/13/19 09:19 Dose: 25 mg Documented by: Thiamine HCl (Vitamin B-1) 100 mg PO QDAY [facility] Last Admin: 10/13/19 09:19 Dose: 100 mg Documented by: Physical Examination Vital Signs Temp Pulse Resp BP Pulse Ox 97.7 F 48 L 16 156/118 86 10/12/19 11:36 10/12/19 11:36 10/12/19 11:36 10/12/19 11:36 10/12/19 11:36 General appearance: no acute distress HEENT: Positive: PERRL Neck: Positive: trachea midline Cardiac: Positive: irregularly irregular Lungs: Positive: Decreased Breath Sounds Neuro: Positive: Grossly Intact Results 10/12/19 12:14 10/13/19 06:16 Cardiac Enzymes 10/12/19 10/12/19 Range/Units 12:14 12:14 AST 39 (5-40) units/L CK-MB (CK-2) 1.7 (0.0-4.0) ng/mL Coagulation 10/12/19 Range/Units 12:14 PT 18.8 H (12.2-14.9) Sec. INR 1.55 H (0.87-1.13) APTT 36.0 (24.2-36.6) Sec. CBC 10/12/19 Range/Units 12:14 WBC 6.2 (4.5-11.0) K/mm3 RBC 3.95 (3.65-5.03) M/mm3 Hgb 11.3 L (11.8-15.2) gm/dl Hct 35.5 (35.5-45.6) % Plt Count 182 (140-440) K/mm3 Lymph # 1.3 (1.2-5.4) K/mm3 [place] # 0.7 (0.0-0.8) K/mm3 Eos # 0.1 (0.0-0.4) K/mm3 Baso # 0.1 (0.0-0.1) K/mm3 Comprehensive Metabolic Panel 10/12/19 10/12/19 10/13/19 Range/Units 12:14 12:14 06:16 Sodium 136 L (137-145) mmol/L Potassium 4.4 (3.6-5.0) mmol/L Chloride 102.0 (98-107) mmol/L Carbon Dioxide 20 L 26 (22-30) mmol/L BUN 13 21 H (9-20) mg/dL Creatinine 1.0 1.3 (0.8-1.5) mg/dL Glucose 94 116 H (75-100) mg/dL Calcium 9.0 9.5 (8.4-10.2) mg/dL Direct Bilirubin 1.5 H (0-0.2) mg/dL Indirect Bilirubin 1.6 mg/dL AST 39 (5-40) units/L ALT 17 (7-56) units/L Alkaline Phosphatase 150 H (35-129) units/L Total Protein 9.7 H (6.3-8.2) g/dL Albumin 3.4 L (3.9-5) g/dL Assessment and Plan Acute on chronic systolic heart failure noncompliance with medications, dietary restrictions and outpatient cardiac follow ups EF 15-20% by echo 03/2019 Chronic Atrial flutter, rate control on eliquis for oral anticoagulation Hx of alcoholic liver disease Hypertension Cor-pulmonale RBBB, chronic Recommendations: Fluid/sodium restrictions. Daily weight. Continue medical therapy for systolic heart failure and chronic atrial flutter.
[2019-10-13] MEDS ORDERED: PNEUMOCOCCAL 23 Valent 0.5 ML VIAL IM ONE (12:00)
[2019-10-13] MEDS ORDERED: FLU VACC QUAD 2019-20 (3 YR UP)/PF 60 MCG/0.5 ML SYRINGE IM ONE (12:00)
--- NOTE | 2019-10-13 17:27 | Progress Note ---
Assessment and Plan Assessment and plan: 54 YO Male with ETOH Dependence, Obesity, HTN, Systolic CHF(EF 10%), OA, Obesity Hypoventilation, Depression, SLE, Gout, Eczema, Lumbar Pain, Atrial Fib on therapeutic Anticoagulation, Medication Noncompliance presents to ED for evaluation. Pt states that he has experienced shortness of breath and genera lized edema over the past 1 week with progressively worsening symptoms over the past 2 days. Patient was seen and evaluated by his rotating equipment specialist today and was found to have difficulty breathing with a pulse oximetry of 86%. Patient was instructed to seek further care at [facility]. Patient seen and evaluated in the emergency department. Lab and imaging studies reviewed. Pt acknowledges orthopnea/PND, decreased exercise tolerance, dypsnea at rest, dypsnea on exertion, bilateral lower extremity edema, noncompliance with cardiac diet, as well as 20 lbs weight gain over the past 2 weeks. Pt denies Fever, Chills, CP, Palpitations, NVD, Trauma, Productive Cough, BRBPR, Unintentional weight loss, prolonged travel/immobility, unilateral leg swelling, calf pain, hemoptysis, skin rash or recent ill contacts. Pt seen and evaluated in ED and found to have CHF Decompensation as well as acute hypoxemic respiratory failure. Pt admitted to telemetry and initiated on CHF protocol. Prior admission on 05/29/2019 reviewed. All listed medication reviewed at time of admission. Extra 30 minutes dedicated to discussion of plan of care. Pt acknowledges understanding and agreement with care plan. - Patient Problems (1) Acute on chronic systolic (congestive) heart failure Current Visit: No Status: Acute Plan to address problem: Submental oxygen, strict I's/O, daily weight, BNP, thyroid panel, echo reviewed from 04/09, cardiology consulted, pulse oximetry, chest x-ray, magnesium level, diuresis, monitoring urine output every shift. Per Cardiology * We will resume optimal guidelines directed medical therapy including intravenous diuretics and oral anticoagulation. We will recommend strict salt restricted diet. Further outpatient management including device therapies will be recommended for patient to discuss with his primary outpatient rotating equipment specialist. (2) Alcoholic liver disease Current Visit: No Status: Acute Plan to address problem: Supportive care, behavior change counseling, abstinence from alcohol use. Elevated Liver Enzymes, Continue to monitor. May need Ultrasound of the abdomen to further evaluate. (3) Obesity hypoventilation syndrome Current Visit: Yes Status: Acute Plan to address problem: Submental oxygen, nebulizer therapy, pulse oximetry, chest x-ray, incentive spirometry. (4) Atrial fibrillation with rapid ventricular response Current Visit: No Status: Acute Plan to address problem: Supportive care, remote telemetry monitoring, rate control, therapeutic an ticoagulation. Cardiology consulted. (5) Acute hypoxemic respiratory failure Current Visit: Yes Status: Acute Plan to address problem: Supplemental oxygen, nebulizer therapy, chest x-ray, pulse oximetry, continue therapeutic anticoagulation, CTA chest, noninvasive positive pressure ventilation as clinically indicated. (6) Hypertension Current Visit: Yes Status: Acute Qualifiers: Hypertension type: essential hypertension Qualified Code(s): I10 - Essential (primary) hypertension Plan to address problem: Monitor BP every shift, continue supportive care. (7) Depression Current Visit: Yes Status: Acute Plan to address problem: Supportive care, outpatient psychiatry follow-up. Continue medical management. (8) Osteoarthritis Current Visit: Yes Status: Acute Qualifiers: Laterality: unspecified laterality Plan to address problem: Pain control, supportive care, NSAID therapy as tolerated. (9) DVT prophylaxis Current Visit: Yes Status: Acute Plan to address problem: Continue therapeutic anticoagulation with Eliquis, SCD to bilateral lower extremities while in bed. History Interval history: Patient seen and examined, resting comfortable. Hospitalist Physical - Physical exam Narrative exam: General appearance: Present: mild distress - EENT Eyes: Present: PERRL ENT: hearing intact, clear oral mucosa - Neck Neck: Present: supple, normal ROM - Respiratory Respiratory effort: normal Respiratory: bilateral: CTA - Cardiovascular Heart Sounds: Present: S1 & S2. Absent: rub, click - Extremities Extremities: pulses symmetrical Extremity abnormal: edema Peripheral Pulses: within normal limits - Abdominal General gastrointestinal: Present: soft, non-tender, non-distended, normal bowel sounds Male genitourinary: Present: normal - Integumentary Integumentary: Present: clear, warm, dry - Musculoskeletal Musculoskeletal: generalized weakness - Psychiatric Psychiatric: appropriate mood/affect, intact judgment & insight - Neurologic Neurologic: CNII-XII intact, moves all extremities - Constitutional Vitals: Temp Pulse Resp BP Pulse Ox 97.5 F L 66 18 130/93 100 10/13/19 08:44 10/13/19 09:19 10/13/19 08:44 10/13/19 09:19 10/13/19 08:16 General appearance: Present: no acute distress JAMEL score - Jamel Score Age > 65: (0) No Aspirin use within the Past 7 Days: (1) Yes 3 or more CAD Risk Factors: (1) Yes 2 or more Angina events in past 24 hrs: (0) No Known CAD with more than 50% Stenosis: (0) No Elevated Cardiac Markers: (0) No ST Deviation Greater than 0.5mm: (0) No JAMEL Score: 2 Results - Labs CBC & Chem 7: 10/12/19 12:14 10/13/19 06:16 Labs: Laboratory Last Values WBC 6.2 K/mm3 (4.5-11.0) 10/12/19 12:14 RBC 3.95 M/mm3 (3.65-5.03) 10/12/19 12:14 Hgb 11.3 gm/dl (11.8-15.2) L 10/12/19 12:14 Hct 35.5 % (35.5-45.6) 10/12/19 12:14 MCV 90 fl (84-94) 10/12/19 12:14 MCH 29 pg (28-32) 10/12/19 12:14 MCHC 32 % (32-34) 10/12/19 12:14 RDW 18.2 % (13.2-15.2) H 10/12/19 12:14 Plt Count 182 K/mm3 (140-440) 10/12/19 12:14 Lymph % (Auto) 21.1 % (13.4-35.0) 10/12/19 12:14 [place] % (Auto) 11.8 % (0.0-7.3) H 10/12/19 12:14 Eos % (Auto) 1.5 % (0.0-4.3) 10/12/19 12:14 Baso % (Auto) 0.8 % (0.0-1.8) 10/12/19 12:14 Lymph # 1.3 K/mm3 (1.2-5.4) 10/12/19 12:14 [place] # 0.7 K/mm3 (0.0-0.8) 10/12/19 12:14 Eos # 0.1 K/mm3 (0.0-0.4) 10/12/19 12:14 Baso # 0.1 K/mm3 (0.0-0.1) 10/12/19 12:14 Seg Neutrophils % 64.8 % (40.0-70.0) 10/12/19 12:14 Seg Neutrophils # 4.0 K/mm3 (1.8-7.7) 10/12/19 12:14 PT 18.8 Sec. (12.2-14.9) H 10/12/19 12:14 INR 1.55 (0.87-1.13) H 10/12/19 12:14 APTT 36.0 Sec. (24.2-36.6) 10/12/19 12:14 Sodium 136 mmol/L (137-145) L 10/13/19 06:16 Potassium 3.9 mmol/L (3.6-5.0) 10/13/19 06:16 Chloride 100.2 mmol/L (98-107) 10/13/19 06:16 Carbon Dioxide 26 mmol/L (22-30) 10/13/19 06:16 Anion Gap 14 mmol/L 10/13/19 06:16 BUN 21 mg/dL (9-20) H 10/13/19 06:16 Creatinine 1.3 mg/dL (0.8-1.5) 10/13/19 06:16 Estimated GFR > 60 ml/min 10/13/19 06:16 BUN/Creatinine Ratio 16 % 10/13/19 06:16 Glucose 116 mg/dL (75-100) H 10/13/19 06:16 Calcium 9.5 mg/dL (8.4-10.2) 10/13/19 06:16 Magnesium 1.80 mg/dL (1.7-2.3) 10/12/19 16:41 Total Bilirubin 3.00 mg/dL (0.1-1.2) H 10/12/19 12:14 Total Bilirubin 3.10 mg/dL (0.1-1.2) H 10/12/19 12:14 Direct Bilirubin 1.5 mg/dL (0-0.2) H 10/12/19 12:14 Indirect Bilirubin 1.6 mg/dL 10/12/19 12:14 AST 39 units/L (5-40) 10/12/19 12:14 ALT 17 units/L (7-56) 10/12/19 12:14 Alkaline Phosphatase 150 units/L (35-129) H 10/12/19 12:14 Total Creatine Kinase 74 units/L (55-170) 10/12/19 12:14 CK-MB (CK-2) 1.7 ng/mL (0.0-4.0) 10/12/19 12:14 CK-MB (CK-2) Rel Index 2.2 (0-4) 10/12/19 12:14 Troponin T < 0.010 ng/mL (0.00-0.029) 10/12/19 12:14 NT-Pro-B Natriuret Pep 968.2 pg/mL (0-900) H 10/12/19 12:14 Total Protein 9.7 g/dL (6.3-8.2) H 10/12/19 12:14 Albumin 3.4 g/dL (3.9-5) L 10/12/19 12:14 Albumin/Globulin Ratio 0.5 % 10/12/19 12:14 TSH 2.660 mlU/mL (0.270-4.200) 10/12/19 16:41 Free T4 1.57 ng/dL (0.76-1.46) H 10/12/19 16:41 Active Medications - Current Medications Current Medications: Generic Name Dose Route Start Last Admin Trade Name Freq PRN Reason Stop Dose Admin Acetaminophen 650 mg 10/12/19 13:48 Tylenol PO Q4H PRN Pain MILD(1-3)/Fever >100.5/GARCIA Apixaban 5 mg 10/12/19 22:00 10/13/19 09:19 Eliquis PO 5 mg Q12HR SLOAN Administration Protocol Chlordiazepoxide HCl 25 mg 10/12/19 13:51 Librium PO Q6H PRN Alcohol Withdrawal Clonidine HCl 0.1 mg 10/12/19 22:00 10/13/19 09:19 Catapres PO 0.1 mg BID SLOAN Administration Famotidine 20 mg 10/12/19 22:00 10/13/19 09:19 Pepcid PO 20 mg BID SLOAN Administration Folic Acid 1 mg 10/13/19 10:00 10/13/19 09:19 Folvite PO 1 mg QDAY SLOAN Administration Furosemide 40 mg 10/12/19 18:00 10/13/19 06:50 Lasix IV 40 mg BID@0600,1800 SLOAN Administration Losartan Potassium 50 mg 10/13/19 10:00 10/13/19 09:18 Cozaar PO 50 mg QDAY SLOAN Administration Metoprolol Tartrate 50 mg 10/12/19 22:00 10/13/19 09:18 Metoprolol PO 50 mg BID SLOAN Administration Multivitamins 1 each 10/13/19 10:00 10/13/19 09:19 Theragran Tab PO 1 each QDAY SLOAN Administration Ondansetron HCl 4 mg 10/12/19 13:48 Zofran IV Q8H PRN Nausea And Vomiting Sodium Chloride 10 ml 10/12/19 22:00 10/13/19 09:19 Sodium Chloride Flush Syringe 10 Ml IV 10 ml BID SLOAN Administration Sodium Chloride 10 ml 10/12/19 13:48 10/13/19 06:50 Sodium Chloride Flush Syringe 10 Ml IV 10 ml PRN PRN Administration LINE FLUSH Spironolactone 25 mg 10/13/19 10:00 10/13/19 09:19 Aldactone PO 25 mg QDAY SLOAN Administration Thiamine HCl 100 mg 10/13/19 10:00 10/13/19 09:19 Vitamin B-1 PO 100 mg QDAY SLOAN Administration
[2019-10-14 06:17] LABS: Hemoglobin 10.3 gm/dl (11.8-15.2); Mean Corpuscular HGB Conc 32 % (32-34); Mean Corpuscular Volume 89 fl (84-94); Platelet Count 159 K/mm3 (140-440); Red Cell Distribution Width 18.1 % (13.2-15.2)
[2019-10-14] MEDS: FUROSEMIDE 40 MG/4 ML INJ IV SCH ×2 (06:38→18:44)
[2019-10-14 06:44] LABS: Alanine Aminotransferase 13 units/L (7-56); BUN/Creatinine Ratio 17; Blood Urea Nitrogen 19 mg/dL (9-20); Calcium 8.2 mg/dL (8.4-10.2); Hemolysis Index 0
[2019-10-14] MEDS: ACETAMINOPHEN 325 MG TAB PO PRN ×3 (06:47→23:25)
--- NOTE | 2019-10-14 09:21 | Progress Note ---
Assessment and Plan Acute on chronic systolic heart failure noncompliance with medications, dietary restrictions and outpatient cardiac follow ups EF 15-20% by echo 03/2019 Chronic Atrial flutter, rate control on eliquis for oral anticoagulation Hx of alcoholic liver disease Hypertension Cor-pulmonale RBBB, chronic Recommendations: Fluid/sodium restrictions. Daily weight. Continue medical therapy for systolic heart failure and chronic atrial flutter. Subjective Date of service: 10/14/19 Interval history: Patient reports his breathing is better. Objective Vital Signs Temp Pulse Resp BP Pulse Ox 10/14/19 08:11 60 10/14/19 08:05 98.1 F 61 18 114/74 97 10/14/19 04:42 98.1 F 65 18 135/90 98 10/14/19 00:00 64 10/13/19 23:30 98.3 F 64 18 140/92 96 10/13/19 22:56 65 130/79 10/13/19 22:55 65 130/79 10/13/19 22:00 18 95 10/13/19 19:51 98.0 F 61 18 114/71 95 - Physical Examination General: No Apparent Distress HEENT: Positive: PERRL Neck: Positive: trachea midline Cardiac: Positive: irregularly irregular Lungs: Positive: Decreased Breath Sounds Neuro: Positive: Grossly Intact - Labs and Meds Cardiac Enzymes 10/14/19 Range/Units 05:30 AST 30 (5-40) units/L CBC 10/14/19 Range/Units 05:30 WBC 7.3 (4.5-11.0) K/mm3 RBC 3.60 L (3.65-5.03) M/mm3 Hgb 10.3 L (11.8-15.2) gm/dl Hct 32.0 L (35.5-45.6) % Plt Count 159 (140-440) K/mm3 Comprehensive Metabolic Panel 10/13/19 10/14/19 Range/Units 06:16 05:30 Sodium 136 L 135 L (137-145) mmol/L Potassium 3.9 3.7 (3.6-5.0) mmol/L Chloride 100.2 97.4 L (98-107) mmol/L Carbon Dioxide 25 (22-30) mmol/L BUN 19 (9-20) mg/dL Creatinine 1.1 (0.8-1.5) mg/dL Glucose 95 (75-100) mg/dL Calcium 8.2 L (8.4-10.2) mg/dL AST 30 (5-40) units/L ALT 13 (7-56) units/L Alkaline Phosphatase 148 H (35-129) units/L Total Protein 8.6 H (6.3-8.2) g/dL Albumin 3.0 L (3.9-5) g/dL
[2019-10-14] MEDS: FOLIC ACID 1 MG TAB PO SCH (09:28)
[2019-10-14] MEDS: APIXABAN 5 MG TAB PO SCH ×2 (09:29→22:55)
[2019-10-14] MEDS: FAMOTIDINE 20 MG TAB PO SCH ×2 (09:29→22:55)
[2019-10-14] MEDS: SPIRONOLACTONE 25 MG TAB PO SCH (09:29)
[2019-10-14] MEDS: METOPROLOL TARTRATE 50 MG TAB PO SCH ×2 (09:29→22:55)
[2019-10-14] MEDS: THIAMINE 100 MG TAB PO SCH (09:29)
[2019-10-14] MEDS: cloNIDine 0.1 MG TAB PO SCH ×2 (09:30→22:55)
[2019-10-14] MEDS: MULTIVITAMINS ,THERAPEUTIC TAB PO SCH (09:30)
[2019-10-14] MEDS: LOSARTAN 50 MG TAB PO SCH (09:31)
--- NOTE | 2019-10-14 13:04 | Progress Note ---
Assessment and Plan Assessment and plan: 54 YO Male with ETOH Dependence, Obesity, HTN, Systolic CHF(EF 10%), OA, Obesity Hypoventilation, Depression, SLE, Gout, Eczema, Lumbar Pain, Atrial Fib on therapeutic Anticoagulation, Medication Noncompliance presents to ED for evaluation. Pt states that he has experienced shortness of breath and genera lized edema over the past 1 week with progressively worsening symptoms over the past 2 days. Patient was seen and evaluated by his reading aide today and was found to have difficulty breathing with a pulse oximetry of 86%. Patient was instructed to seek further care at [facility]. Patient seen and evaluated in the emergency department. Lab and imaging studies reviewed. Pt acknowledges orthopnea/PND, decreased exercise tolerance, dypsnea at rest, dypsnea on exertion, bilateral lower extremity edema, noncompliance with cardiac diet, as well as 20 lbs weight gain over the past 2 weeks. Pt denies Fever, Chills, CP, Palpitations, NVD, Trauma, Productive Cough, BRBPR, Unintentional weight loss, prolonged travel/immobility, unilateral leg swelling, calf pain, hemoptysis, skin rash or recent ill contacts. Pt seen and evaluated in ED and found to have CHF Decompensation as well as acute hypoxemic respiratory failure. Pt admitted to telemetry and initiated on CHF protocol. Prior admission on 05/29/2019 reviewed. All listed medication reviewed at time of admission. Extra 30 minutes dedicated to discussion of plan of care. Pt acknowledges understanding and agreement with care plan. - Patient Problems (1) Acute on chronic systolic (congestive) heart failure Current Visit: No Status: Acute Plan to address problem: Submental oxygen, strict I's/O, daily weight, BNP, thyroid panel, echo reviewed from 04/09, cardiology consulted, pulse oximetry, chest x-ray, magnesium level, diuresis, monitoring urine output every shift. Per Cardiology * We will resume optimal guidelines directed medical therapy including intravenous diuretics and oral anticoagulation. We will recommend strict salt restricted diet. Further outpatient management including device therapies will be recommended for patient to discuss with his primary outpatient reading aide. * Anticipate discharge in am (2) Alcoholic liver disease Current Visit: No Status: Acute Plan to address problem: Supportive care, behavior change counseling, abstinence from alcohol use. Elevated Liver Enzymes, Continue to monitor. CLINICALLY STABLE Extensive counselling (3) Obesity hypoventilation syndrome Current Visit: Yes Status: Acute Plan to address problem: Submental oxygen, nebulizer therapy, pulse oximetry, chest x-ray, incentive spirometry. (4) Atrial fibrillation with rapid ventricular response Current Visit: No Status: Acute Plan to address problem: Supportive care, remote telemetry monitoring, rate control, therapeutic anticoagulation. Cardiology consulted. (5) Acute hypoxemic respiratory failure Current Visit: Yes Status: Acute Plan to address problem: Supplemental oxygen, nebulizer therapy, chest x-ray, pulse oximetry, continue therapeutic anticoagulation, CTA chest, noninvasive positive pressure ventilati on as clinically indicated. (6) Hypertension Current Visit: Yes Status: Acute Qualifiers: Hypertension type: essential hypertension Qualified Code(s): I10 - Essential (primary) hypertension Plan to address problem: Monitor BP every shift, continue supportive care. (7) Depression Current Visit: Yes Status: Acute Plan to address problem: Supportive care, outpatient psychiatry follow-up. Continue medical management. (8) Osteoarthritis Current Visit: Yes Status: Acute Qualifiers: Laterality: unspecified laterality Plan to address problem: Pain control, supportive care, NSAID therapy as tolerated. (9) DVT prophylaxis Current Visit: Yes Status: Acute Plan to address problem: Continue therapeutic anticoagulation with Eliquis, SCD to bilateral lower extremities while in bed. History Interval history: Patient seen and examined, resting comfortable. patient reports that he lost his medicines. but is now in a better place Hospitalist Physical - Physical exam Narrative exam: General appearance: Present: No distress - EENT Eyes: Present: PERRL ENT: hearing intact, clear oral mucosa - Neck Neck: Present: supple, normal ROM - Respiratory Respiratory effort: normal Respiratory: bilateral: CTA - Cardiovascular Heart Sounds: Present: S1 & S2. Absent: rub, click - Extremities Extremities: pulses symmetrical Extremity abnormal: edema Peripheral Pulses: within normal limits - Abdominal General gastrointestinal: Present: soft, non-tender, non-distended, normal bowel sounds Male genitourinary: Present: normal - Integumentary Integumentary: Present: clear, warm, dry - Musculoskeletal Musculoskeletal: generalized weakness - Psychiatric Psychiatric: appropriate mood/affect, intact judgment & insight - Neurologic Neurologic: CNII-XII intact, moves all extremities - Constitutional Vitals: Temp Pulse Resp BP Pulse Ox 98.3 F 56 L 18 126/83 99 10/14/19 11:28 10/14/19 11:28 10/14/19 11:28 10/14/19 11:28 10/14/19 11:28 General appearance: Present: no acute distress JAMEL score - Jamel Score Age > 65: (0) No Aspirin use within the Past 7 Days: (1) Yes 3 or more CAD Risk Factors: (1) Yes 2 or more Angina events in past 24 hrs: (0) No Known CAD with more than 50% Stenosis: (0) No Elevated Cardiac Markers: (0) No ST Deviation Greater than 0.5mm: (0) No JAMEL Score: 2 Results - Labs CBC & Chem 7: 10/14/19 05:30 10/14/19 05:30 Labs: Laboratory Last Values WBC 7.3 K/mm3 (4.5-11.0) 10/14/19 05:30 RBC 3.60 M/mm3 (3.65-5.03) L 10/14/19 05:30 Hgb 10.3 gm/dl (11.8-15.2) L 10/14/19 05:30 Hct 32.0 % (35.5-45.6) L 10/14/19 05:30 MCV 89 fl (84-94) 10/14/19 05:30 MCH 29 pg (28-32) 10/14/19 05:30 MCHC 32 % (32-34) 10/14/19 05:30 RDW 18.1 % (13.2-15.2) H 10/14/19 05:30 Plt Count 159 K/mm3 (140-440) 10/14/19 05:30 Lymph % (Auto) 21.1 % (13.4-35.0) 10/12/19 12:14 [place] % (Auto) 11.8 % (0.0-7.3) H 10/12/19 12:14 Eos % (Auto) 1.5 % (0.0-4.3) 10/12/19 12:14 Baso % (Auto) 0.8 % (0.0-1.8) 10/12/19 12:14 Lymph # 1.3 K/mm3 (1.2-5.4) 10/12/19 12:14 [place] # 0.7 K/mm3 (0.0-0.8) 10/12/19 12:14 Eos # 0.1 K/mm3 (0.0-0.4) 10/12/19 12:14 Baso # 0.1 K/mm3 (0.0-0.1) 10/12/19 12:14 Seg Neutrophils % 64.8 % (40.0-70.0) 10/12/19 12:14 Seg Neutrophils # 4.0 K/mm3 (1.8-7.7) 10/12/19 12:14 PT 18.8 Sec. (12.2-14.9) H 10/12/19 12:14 INR 1.55 (0.87-1.13) H 10/12/19 12:14 APTT 36.0 Sec. (24.2-36.6) 10/12/19 12:14 Sodium 135 mmol/L (137-145) L 10/14/19 05:30 Potassium 3.7 mmol/L (3.6-5.0) 10/14/19 05:30 Chloride 97.4 mmol/L (98-107) L 10/14/19 05:30 Carbon Dioxide 25 mmol/L (22-30) 10/14/19 05:30 Anion Gap 16 mmol/L 10/14/19 05:30 BUN 19 mg/dL (9-20) 10/14/19 05:30 Creatinine 1.1 mg/dL (0.8-1.5) 10/14/19 05:30 Estimated GFR > 60 ml/min 10/14/19 05:30 BUN/Creatinine Ratio 17 % 10/14/19 05:30 Glucose 95 mg/dL (75-100) 10/14/19 05:30 Calcium 8.2 mg/dL (8.4-10.2) L 10/14/19 05:30 Magnesium 1.80 mg/dL (1.7-2.3) 10/12/19 16:41 Total Bilirubin 1.80 mg/dL (0.1-1.2) H 10/14/19 05:30 Direct Bilirubin 1.5 mg/dL (0-0.2) H 10/12/19 12:14 Indirect Bilirubin 1.6 mg/dL 10/12/19 12:14 AST 30 units/L (5-40) 10/14/19 05:30 ALT 13 units/L (7-56) 10/14/19 05:30 Alkaline Phosphatase 148 units/L (35-129) H 10/14/19 05:30 Total Creatine Kinase 74 units/L (55-170) 10/12/19 12:14 CK-MB (CK-2) 1.7 ng/mL (0.0-4.0) 10/12/19 12:14 CK-MB (CK-2) Rel Index 2.2 (0-4) 10/12/19 12:14 Troponin T < 0.010 ng/mL (0.00-0.029) 10/12/19 12:14 NT-Pro-B Natriuret Pep 968.2 pg/mL (0-900) H 10/12/19 12:14 Total Protein 8.6 g/dL (6.3-8.2) H 10/14/19 05:30 Albumin 3.0 g/dL (3.9-5) L 10/14/19 05:30 Albumin/Globulin Ratio 0.5 % 10/14/19 05:30 TSH 2.660 mlU/mL (0.270-4.200) 10/12/19 16:41 Free T4 1.57 ng/dL (0.76-1.46) H 10/12/19 16:41 Active Medications - Current Medications Current Medications: Generic Name Dose Route Start Last Admin Trade Name Freq PRN Reason Stop Dose Admin Acetaminophen 650 mg 10/12/19 13:48 10/14/19 06:47 Tylenol PO 650 mg Q4H PRN Administration Pain MILD(1-3)/Fever >100.5/GARCIA Apixaban 5 mg 10/12/19 22:00 10/14/19 09:29 Eliquis PO 5 mg Q12HR SLOAN Administration Protocol Chlordiazepoxide HCl 25 mg 10/12/19 13:51 Librium PO Q6H PRN Alcohol Withdrawal Clonidine HCl 0.1 mg 10/12/19 22:00 10/14/19 09:30 Catapres PO Not Given BID SLOAN Famotidine 20 mg 10/12/19 22:00 10/14/19 09:29 Pepcid PO 20 mg BID SLOAN Administration Folic Acid 1 mg 10/13/19 10:00 10/14/19 09:28 Folvite PO 1 mg QDAY SLOAN Administration Furosemide 40 mg 10/12/19 18:00 10/14/19 06:38 Lasix IV 40 mg BID@0600,1800 SLOAN Administration Losartan Potassium 50 mg 10/13/19 10:00 10/14/19 09:31 Cozaar PO Not Given QDAY SLOAN Metoprolol Tartrate 50 mg 10/12/19 22:00 10/14/19 09:29 Metoprolol PO 50 mg BID SLOAN Administration Multivitamins 1 each 10/13/19 10:00 10/14/19 09:30 Theragran Tab PO 1 each QDAY SLOAN Administration Ondansetron HCl 4 mg 10/12/19 13:48 Zofran IV Q8H PRN Nausea And Vomiting Sodium Chloride 10 ml 10/12/19 22:00 10/13/19 22:58 Sodium Chloride Flush Syringe 10 Ml IV 10 ml BID SLOAN Administration Sodium Chloride 10 ml 10/12/19 13:48 10/13/19 06:50 Sodium Chloride Flush Syringe 10 Ml IV 10 ml PRN PRN Administration LINE FLUSH Spironolactone 25 mg 10/13/19 10:00 10/14/19 09:29 Aldactone PO 25 mg QDAY SLOAN Administration Thiamine HCl 100 mg 10/13/19 10:00 10/14/19 09:29 Vitamin B-1 PO 100 mg QDAY SLOAN Administration
[2019-10-15] MEDS: FUROSEMIDE 40 MG/4 ML INJ IV SCH (06:28)
--- NOTE | 2019-10-15 09:03 | Progress Note ---
Assessment and Plan Acute on chronic systolic heart failure noncompliance with medications, dietary restrictions and outpatient cardiac follow ups EF 15-20% by echo 03/2019 Chronic Atrial flutter, rate control on eliquis for oral anticoagulation Hx of alcoholic liver disease Hypertension Cor-pulmonale RBBB, chronic Recommendations: Advised fluid/sodium restrictions. Daily weight. Continue medical therapy for systolic heart failure and chronic atrial flutter. Discharge planning in 24-48 hours. Subjective Date of service: 10/15/19 Interval history: Patient complains of palpitations and shortness of breath overnight. Aflutter with a well controlled ventricular rate on telemetry. Objective Vital Signs Temp Pulse Pulse Pulse Resp BP Pulse Ox 10/15/19 08:00 62 10/15/19 07:50 97.5 F L 18 131/87 10/15/19 04:21 98.3 F 62 18 113/78 98 10/15/19 00:01 98.3 F 64 18 118/88 98 10/15/19 00:00 64 10/14/19 22:55 65 117/84 10/14/19 22:00 63 63 18 98 10/14/19 19:28 98.2 F 61 18 119/74 100 10/14/19 18:44 18 10/14/19 17:00 98.4 F 56 L 18 135/92 99 10/14/19 16:00 58 L 98 10/14/19 11:28 98.3 F 56 L 18 126/83 99 10/14/19 09:29 60 - Physical Examination General: No Apparent Distress HEENT: Positive: PERRL Neck: Positive: trachea midline Cardiac: Positive: irregularly irregular Lungs: Positive: Decreased Breath Sounds Neuro: Positive: Grossly Intact
[2019-10-15] MEDS: APIXABAN 5 MG TAB PO SCH ×2 (10:24→21:45)
[2019-10-15] MEDS: THIAMINE 100 MG TAB PO SCH (10:24)
[2019-10-15] MEDS: FOLIC ACID 1 MG TAB PO SCH (10:24)
[2019-10-15] MEDS: MULTIVITAMINS ,THERAPEUTIC TAB PO SCH (10:24)
[2019-10-15] MEDS: SPIRONOLACTONE 25 MG TAB PO SCH (10:24)
[2019-10-15] MEDS: FAMOTIDINE 20 MG TAB PO SCH ×2 (10:24→21:46)
[2019-10-15] MEDS: LOSARTAN 50 MG TAB PO SCH (10:25)
[2019-10-15] MEDS: METOPROLOL TARTRATE 50 MG TAB PO SCH (10:25)
[2019-10-15] MEDS: cloNIDine 0.1 MG TAB PO SCH ×2 (10:25→21:45)
--- NOTE | 2019-10-15 15:05 | Progress Note ---
Assessment and Plan Assessment and plan: 54 YO Male with ETOH Dependence, Obesity, HTN, Systolic CHF(EF 10%), OA, Obesity Hypoventilation, Depression, SLE, Gout, Eczema, Lumbar Pain, Atrial Fib on therapeutic Anticoagulation, Medication Noncompliance presents to ED for evaluation. Pt states that he has experienced shortness of breath and genera lized edema over the past 1 week with progressively worsening symptoms over the past 2 days. Patient was seen and evaluated by his shank taper today and was found to have difficulty breathing with a pulse oximetry of 86%. Patient was instructed to seek further care at [facility]. Patient seen and evaluated in the emergency department. Lab and imaging studies reviewed. Pt acknowledges orthopnea/PND, decreased exercise tolerance, dypsnea at rest, dypsnea on exertion, bilateral lower extremity edema, noncompliance with cardiac diet, as well as 20 lbs weight gain over the past 2 weeks. Pt denies Fever, Chills, CP, Palpitations, NVD, Trauma, Productive Cough, BRBPR, Unintentional weight loss, prolonged travel/immobility, unilateral leg swelling, calf pain, hemoptysis, skin rash or recent ill contacts. Pt seen and evaluated in ED and found to have CHF Decompensation as well as acute hypoxemic respiratory failure. Pt admitted to telemetry and initiated on CHF protocol. Prior admission on 05/29/2019 reviewed. All listed medication reviewed at time of admission. Extra 30 minutes dedicated to discussion of plan of care. Pt acknowledges understanding and agreement with care plan. - Patient Problems (1) Acute on chronic systolic (congestive) heart failure Current Visit: No Status: Acute Plan to address problem: Submental oxygen, strict I's/O, daily weight, BNP, thyroid panel, echo reviewed from 04/09, cardiology consulted, pulse oximetry, chest x-ray, magnesium level, diuresis, monitoring urine output every shift. Per Cardiology * We will resume optimal guidelines directed medical therapy including intravenous diuretics and oral anticoagulation. We will recommend strict salt restricted diet. Further outpatient management including device therapies will be recommended for patient to discuss with his primary outpatient shank taper. * Anticipate discharge in am * Non complaince counselling provided * PER cardiologyRecommend transitioning patient to by mouth torsemide 40 mg twice a day and continue to monitor urine output in order to verify appropri ate diuresis prior to discharge. Also change metoprolol tartrate to metoprolol succinate 100 mg by mouth daily. Follow-up within 7 days as outpatient with [facility]. Advised compliance with medications, fluid and salt restriction. (2) Alcoholic liver disease Current Visit: No Status: Acute Plan to address problem: Supportive care, behavior change counseling, abstinence from alcohol use. Elevated Liver Enzymes, Continue to monitor. CLINICALLY STABLE Extensive counselling (3) Obesity hypoventilation syndrome Current Visit: Yes Status: Acute Plan to address problem: Submental oxygen, nebulizer therapy, pulse oximetry, chest x-ray, incentive spirometry. (4) Atrial flutter with RVR Current Visit: No Status: Acute Plan to address problem: Supportive care, remote telemetry monitoring, rate control, therapeutic anticoagulation. Cardiology consulted. adjustment to BB made. Will monitor overnight (5) Acute hypoxemic respiratory failure Current Visit: Yes Status: Acute Plan to address problem: Supplemental oxygen, nebulizer therapy, chest x-ray, pulse oximetry, continue therapeutic anticoagulation, CTA chest, noninvasive positive pressure ventilation as clinically indicated. (6) Hypertension Current Visit: Yes Status: Acute Qualifiers: Hypertension type: essential hypertension Qualified Code(s): I10 - Essential (primary) hypertension Plan to address problem: Monitor BP every shift, continue supportive care. (7) Depression Current Visit: Yes Status: Acute Plan to address problem: Supportive care, outpatient psychiatry follow-up. Continue medical management. (8) Osteoarthritis Current Visit: Yes Status: Acute Qualifiers: Laterality: unspecified laterality Plan to address problem: Pain control, supportive care, NSAID therapy as tolerated. (9) DVT prophylaxis Current Visit: Yes Status: Acute Plan to address problem: Continue therapeutic anticoagulation with Eliquis, SCD to bilateral lower extremities while in bed. History Interval history: Patient seen and examined, resting comfortable. although overnight had an epsiode of worsening shortness of breath, better this am but not quite at baseline Hospitalist Physical - Physical exam Narrative exam: General appearance: Present: No distress - EENT Eyes: Present: PERRL ENT: hearing intact, clear oral mucosa - Neck Neck: Present: supple, normal ROM - Respiratory Respiratory effort: normal Respiratory: bilateral: CTA - Cardiovascular Heart Sounds: Present: S1 & S2. Absent: rub, click - Extremities Extremities: pulses symmetrical Extremity abnormal: edema Peripheral Pulses: within normal limits - Abdominal General gastrointestinal: Present: soft, non-tender, non-distended, normal bowel sounds Male genitourinary: Present: normal - Integumentary Integumentary: Present: clear, warm, dry - Musculoskeletal Musculoskeletal: generalized weakness - Psychiatric Psychiatric: appropriate mood/affect, intact judgment & insight - Neurologic Neurologic: CNII-XII intact, moves all extremities - Constitutional Vitals: Temp Pulse Resp BP Pulse Ox 97.5 F L 62 18 130/86 98 10/15/19 07:50 10/15/19 10:25 10/15/19 07:50 10/15/19 10:25 10/15/19 04:21 General appearance: Present: no acute distress JAMEL score - Jamel Score Age > 65: (0) No Aspirin use within the Past 7 Days: (1) Yes 3 or more CAD Risk Factors: (1) Yes 2 or more Angina events in past 24 hrs: (0) No Known CAD with more than 50% Stenosis: (0) No Elevated Cardiac Markers: (0) No ST Deviation Greater than 0.5mm: (0) No JAMEL Score: 2 Results - Labs CBC & Chem 7: 10/14/19 05:30 10/14/19 05:30 Labs: Laboratory Last Values WBC 7.3 K/mm3 (4.5-11.0) 10/14/19 05:30 RBC 3.60 M/mm3 (3.65-5.03) L 10/14/19 05:30 Hgb 10.3 gm/dl (11.8-15.2) L 10/14/19 05:30 Hct 32.0 % (35.5-45.6) L 10/14/19 05:30 MCV 89 fl (84-94) 10/14/19 05:30 MCH 29 pg (28-32) 10/14/19 05:30 MCHC 32 % (32-34) 10/14/19 05:30 RDW 18.1 % (13.2-15.2) H 10/14/19 05:30 Plt Count 159 K/mm3 (140-440) 10/14/19 05:30 Lymph % (Auto) 21.1 % (13.4-35.0) 10/12/19 12:14 [place] % (Auto) 11.8 % (0.0-7.3) H 10/12/19 12:14 Eos % (Auto) 1.5 % (0.0-4.3) 10/12/19 12:14 Baso % (Auto) 0.8 % (0.0-1.8) 10/12/19 12:14 Lymph # 1.3 K/mm3 (1.2-5.4) 10/12/19 12:14 [place] # 0.7 K/mm3 (0.0-0.8) 10/12/19 12:14 Eos # 0.1 K/mm3 (0.0-0.4) 10/12/19 12:14 Baso # 0.1 K/mm3 (0.0-0.1) 10/12/19 12:14 Seg Neutrophils % 64.8 % (40.0-70.0) 10/12/19 12:14 Seg Neutrophils # 4.0 K/mm3 (1.8-7.7) 10/12/19 12:14 PT 18.8 Sec. (12.2-14.9) H 10/12/19 12:14 INR 1.55 (0.87-1.13) H 10/12/19 12:14 APTT 36.0 Sec. (24.2-36.6) 10/12/19 12:14 Sodium 135 mmol/L (137-145) L 10/14/19 05:30 Potassium 3.7 mmol/L (3.6-5.0) 10/14/19 05:30 Chloride 97.4 mmol/L (98-107) L 10/14/19 05:30 Carbon Dioxide 25 mmol/L (22-30) 10/14/19 05:30 Anion Gap 16 mmol/L 10/14/19 05:30 BUN 19 mg/dL (9-20) 10/14/19 05:30 Creatinine 1.1 mg/dL (0.8-1.5) 10/14/19 05:30 Estimated GFR > 60 ml/min 10/14/19 05:30 BUN/Creatinine Ratio 17 % 10/14/19 05:30 Glucose 95 mg/dL (75-100) 10/14/19 05:30 Calcium 8.2 mg/dL (8.4-10.2) L 10/14/19 05:30 Magnesium 1.80 mg/dL (1.7-2.3) 10/12/19 16:41 Total Bilirubin 1.80 mg/dL (0.1-1.2) H 10/14/19 05:30 Direct Bilirubin 1.5 mg/dL (0-0.2) H 10/12/19 12:14 Indirect Bilirubin 1.6 mg/dL 10/12/19 12:14 AST 30 units/L (5-40) 10/14/19 05:30 ALT 13 units/L (7-56) 10/14/19 05:30 Alkaline Phosphatase 148 units/L (35-129) H 10/14/19 05:30 Total Creatine Kinase 74 units/L (55-170) 10/12/19 12:14 CK-MB (CK-2) 1.7 ng/mL (0.0-4.0) 10/12/19 12:14 CK-MB (CK-2) Rel Index 2.2 (0-4) 10/12/19 12:14 Troponin T < 0.010 ng/mL (0.00-0.029) 10/12/19 12:14 NT-Pro-B Natriuret Pep 968.2 pg/mL (0-900) H 10/12/19 12:14 Total Protein 8.6 g/dL (6.3-8.2) H 10/14/19 05:30 Albumin 3.0 g/dL (3.9-5) L 10/14/19 05:30 Albumin/Globulin Ratio 0.5 % 10/14/19 05:30 TSH 2.660 mlU/mL (0.270-4.200) 10/12/19 16:41 Free T4 1.57 ng/dL (0.76-1.46) H 10/12/19 16:41 Active Medications - Current Medications Current Medications: Generic Name Dose Route Start Last Admin Trade Name Freq PRN Reason Stop Dose Admin Acetaminophen 650 mg 10/12/19 13:48 10/14/19 23:25 Tylenol PO 650 mg Q4H PRN Administration Pain MILD(1-3)/Fever >100.5/GARCIA Apixaban 5 mg 10/12/19 22:00 10/15/19 10:24 Eliquis PO 5 mg Q12HR SLOAN Administration Protocol Chlordiazepoxide HCl 25 mg 10/12/19 13:51 Librium PO Q6H PRN Alcohol Withdrawal Clonidine HCl 0.1 mg 10/12/19 22:00 10/15/19 10:25 Catapres PO 0.1 mg BID SLOAN Administration Famotidine 20 mg 10/12/19 22:00 10/15/19 10:24 Pepcid PO 20 mg BID SLOAN Administration Folic Acid 1 mg 10/13/19 10:00 10/15/19 10:24 Folvite PO 1 mg QDAY SLOAN Administration Losartan Potassium 50 mg 10/13/19 10:00 10/15/19 10:25 Cozaar PO 50 mg QDAY SLOAN Administration Metoprolol Succinate 100 mg 10/15/19 15:00 Metoprolol Xl PO QDAY SLOAN Multivitamins 1 each 10/13/19 10:00 10/15/19 10:24 Theragran Tab PO 1 each QDAY SLOAN Administration Ondansetron HCl 4 mg 10/12/19 13:48 Zofran IV Q8H PRN Nausea And Vomiting Sodium Chloride 10 ml 10/12/19 22:00 10/15/19 10:26 Sodium Chloride Flush Syringe 10 Ml IV 10 ml BID SLOAN Administration Sodium Chloride 10 ml 10/12/19 13:48 10/13/19 06:50 Sodium Chloride Flush Syringe 10 Ml IV 10 ml PRN PRN Administration LINE FLUSH Spironolactone 25 mg 10/13/19 10:00 10/15/19 10:24 Aldactone PO 25 mg QDAY SLOAN Administration Thiamine HCl 100 mg 10/13/19 10:00 10/15/19 10:24 Vitamin B-1 PO 100 mg QDAY SLOAN Administration Torsemide 40 mg 10/15/19 18:00 Demadex PO BID@0600,1800 [facility]
[2019-10-15] MEDS: TORSEMIDE 10 MG TAB PO SCH (18:52)
[2019-10-15] MEDS: METOPROLOL SUCCINATE XL 100 MG TAB PO SCH (18:53)
[2019-10-16] MEDS: ACETAMINOPHEN 325 MG TAB PO PRN (01:04)
[2019-10-16 04:41] LABS: Hematocrit 32.4 % (35.5-45.6); Hemoglobin 10.5 gm/dl (11.8-15.2); Mean Corpuscular HGB Conc 32 % (32-34); Mean Corpuscular Volume 89 fl (84-94); Platelet Count 148 K/mm3 (140-440); Red Blood Count 3.66 M/mm3 (3.65-5.03); Red Cell Distribution Width 17.7 % (13.2-15.2)
[2019-10-16 04:56] LABS: BUN/Creatinine Ratio 18; Blood Urea Nitrogen 21 mg/dL (9-20); Calcium 8.1 mg/dL (8.4-10.2); Hemolysis Index 4
[2019-10-16] MEDS: TORSEMIDE 10 MG TAB PO SCH ×2 (06:29→17:23)
[2019-10-16] MEDS: FOLIC ACID 1 MG TAB PO SCH (10:32)
[2019-10-16] MEDS: APIXABAN 5 MG TAB PO SCH ×2 (10:32→21:35)
[2019-10-16] MEDS: FAMOTIDINE 20 MG TAB PO SCH ×2 (10:32→21:35)
[2019-10-16] MEDS: THIAMINE 100 MG TAB PO SCH (10:32)
[2019-10-16] MEDS: MULTIVITAMINS ,THERAPEUTIC TAB PO SCH (10:32)
[2019-10-16] MEDS: LOSARTAN 50 MG TAB PO SCH (10:34)
[2019-10-16] MEDS: cloNIDine 0.1 MG TAB PO SCH (10:34)
[2019-10-16] MEDS: METOPROLOL SUCCINATE XL 100 MG TAB PO SCH (10:35)
[2019-10-16] MEDS: SPIRONOLACTONE 25 MG TAB PO SCH (10:35)
--- NOTE | 2019-10-16 10:56 | Progress Note ---
Assessment and Plan Acute on chronic systolic heart failure noncompliance with medications, dietary restrictions and outpatient cardiac follow ups EF 15-20% by echo 03/2019 Chronic Atrial flutter, rate control on eliquis for oral anticoagulation Hx of alcoholic liver disease Hypertension Cor-pulmonale RBBB, chronic Recommendations: Advised fluid/sodium restrictions. Daily weight. Continue medical therapy for systolic heart failure and chronic atrial flutter Hold clonidine for now. Subjective Date of service: 10/16/19 Interval history: BP and HR low this AM. Pt asymptomatic and feels well. Objective Vital Signs Temp Pulse Pulse Pulse Resp BP Pulse Ox 10/16/19 10:35 58 L 102/75 10/16/19 10:34 58 L 102/75 10/16/19 08:07 97.6 F 58 L 18 131/88 96 10/16/19 05:02 97.3 F L 49 L 16 107/70 97 10/16/19 02:04 18 10/16/19 01:04 18 10/16/19 00:22 100.5 F H 66 16 118/72 98 10/15/19 22:35 62 62 18 100 10/15/19 21:45 62 130/84 10/15/19 20:08 98.5 F 57 L 24 130/84 100 10/15/19 19:13 55 L 10/15/19 18:53 70 122/76 10/15/19 16:00 68 74 20 99 10/15/19 12:26 97.5 F L 66 18 123/79 96 - Physical Examination General: No Apparent Distress HEENT: Positive: PERRL Neck: Positive: trachea midline Cardiac: Positive: Irregularly Regular Lungs: Positive: clear to auscultation Neuro: Positive: Grossly Intact - Labs and Meds CBC 10/16/19 Range/Units 04:09 WBC 6.7 (4.5-11.0) K/mm3 RBC 3.66 (3.65-5.03) M/mm3 Hgb 10.5 L (11.8-15.2) gm/dl Hct 32.4 L (35.5-45.6) % Plt Count 148 (140-440) K/mm3 Comprehensive Metabolic Panel 10/16/19 Range/Units 04:09 Sodium 134 L (137-145) mmol/L Potassium 3.9 (3.6-5.0) mmol/L Chloride 96.4 L (98-107) mmol/L Carbon Dioxide 25 (22-30) mmol/L BUN 21 H (9-20) mg/dL Creatinine 1.2 (0.8-1.5) mg/dL Glucose 92 (75-100) mg/dL Calcium 8.1 L (8.4-10.2) mg/dL
--- NOTE | 2019-10-16 13:51 | Progress Note ---
Assessment and Plan Assessment and plan: 54 YO Male with ETOH Dependence, Obesity, HTN, Systolic CHF(EF 10%), OA, Obesity Hypoventilation, Depression, SLE, Gout, Eczema, Lumbar Pain, Atrial Fib on therapeutic Anticoagulation, Medication Noncompliance presents to ED for evaluation. Pt states that he has experienced shortness of breath and genera lized edema over the past 1 week with progressively worsening symptoms over the past 2 days. Patient was seen and evaluated by his platform software engineer today and was found to have difficulty breathing with a pulse oximetry of 86%. Patient was instructed to seek further care at [facility]. Patient seen and evaluated in the emergency department. Lab and imaging studies reviewed. Pt acknowledges orthopnea/PND, decreased exercise tolerance, dypsnea at rest, dypsnea on exertion, bilateral lower extremity edema, noncompliance with cardiac diet, as well as 20 lbs weight gain over the past 2 weeks. Pt denies Fever, Chills, CP, Palpitations, NVD, Trauma, Productive Cough, BRBPR, Unintentional weight loss, prolonged travel/immobility, unilateral leg swelling, calf pain, hemoptysis, skin rash or recent ill contacts. Pt seen and evaluated in ED and found to have CHF Decompensation as well as acute hypoxemic respiratory failure. Pt admitted to telemetry and initiated on CHF protocol. Prior admission on 05/29/2019 reviewed. All listed medication reviewed at time of admission. Extra 30 minutes dedicated to discussion of plan of care. Pt acknowledges understanding and agreement with care plan. - Patient Problems (1) Acute on chronic systolic (congestive) heart failure Current Visit: No Status: Acute Plan to address problem: Submental oxygen, strict I's/O, daily weight, BNP, thyroid panel, echo reviewed from 04/09, cardiology consulted, pulse oximetry, chest x-ray, magnesium level, diuresis, monitoring urine output every shift. Per Cardiology * We will resume optimal guidelines directed medical therapy including intravenous diuretics and oral anticoagulation. We will recommend strict salt restricted diet. Further outpatient management including device therapies will be recommended for patient to discuss with his primary outpatient platform software engineer. * Anticipate discharge in am * Non complaince counselling provided * PER cardiologyRecommend transitioning patient to by mouth torsemide 40 mg twice a day and continue to monitor urine output in order to verify appropri ate diuresis prior to discharge. Also change metoprolol tartrate to metoprolol succinate 100 mg by mouth daily. Follow-up within 7 days as outpatient with [facility]. Advised compliance with medications, fluid and salt restriction. (2) Alcoholic liver disease Current Visit: No Status: Acute Plan to address problem: Supportive care, behavior change counseling, abstinence from alcohol use. Elevated Liver Enzymes, Continue to monitor. CLINICALLY STABLE Extensive counselling (3) Obesity hypoventilation syndrome Current Visit: Yes Status: Acute Plan to address problem: Submental oxygen, nebulizer therapy, pulse oximetry, chest x-ray, incentive spirometry. (4) Atrial flutter with RVR Current Visit: No Status: Acute Plan to address problem: Supportive care, remote telemetry monitoring, rate control, therapeutic anticoagulation. Cardiology consulted. adjustment to BB made. Will monitor overnight Will hold Clonidine due to Bradycardia. Discussed with the pateint (5) Acute hypoxemic respiratory failure Current Visit: Yes Status: Acute Plan to address problem: Supplemental oxygen, nebulizer therapy, chest x-ray, pulse oximetry, continue therapeutic anticoagulation, CTA chest, noninvasive positive pressure ventilation as clinically indicated. Improved (6) Hypertension Current Visit: Yes Status: Acute Qualifiers: Hypertension type: essential hypertension Qualified Code(s): I10 - Essential (primary) hypertension Plan to address problem: Monitor BP every shift, continue supportive care. (7) Depression Current Visit: Yes Status: Acute Plan to address problem: Supportive care, outpatient psychiatry follow-up. Continue medical management. (8) Osteoarthritis Current Visit: Yes Status: Acute Qualifiers: Laterality: unspecified laterality Plan to address problem: Pain control, supportive care, NSAID therapy as tolerated. (9) DVT prophylaxis Current Visit: Yes Status: Acute Plan to address problem: Continue therapeutic anticoagulation with Eliquis, SCD to bilateral lower extremities while in bed. History Interval history: Patient seen and examined, resting comfortable. NOTED TO BE Bradycardic this am and overnight Hospitalist Physical - Physical exam Narrative exam: General appearance: Present: No distress - EENT Eyes: Present: PERRL ENT: hearing intact, clear oral mucosa - Neck Neck: Present: supple, normal ROM - Respiratory Respiratory effort: normal Respiratory: bilateral: CTA - Cardiovascular Heart Sounds: Present: S1 & S2. bradycardia Absent: rub, click - Extremities Extremities: pulses symmetrical Extremity abnormal: edema Peripheral Pulses: within normal limits - Abdominal General gastrointestinal: Present: soft, non-tender, non-distended, normal bowel sounds Male genitourinary: Present: normal - Integumentary Integumentary: Present: clear, warm, dry - Musculoskeletal Musculoskeletal: generalized weakness - Psychiatric Psychiatric: appropriate mood/affect, intact judgment & insight - Neurologic Neurologic: CNII-XII intact, moves all extremities - Constitutional Vitals: Temp Pulse Resp BP Pulse Ox 98.0 F 54 L 18 119/80 97 10/16/19 11:59 10/16/19 11:59 10/16/19 11:59 10/16/19 11:59 10/16/19 11:59 General appearance: Present: no acute distress JAMEL score - Jamel Score Age > 65: (0) No Aspirin use within the Past 7 Days: (1) Yes 3 or more CAD Risk Factors: (1) Yes 2 or more Angina events in past 24 hrs: (0) No Known CAD with more than 50% Stenosis: (0) No Elevated Cardiac Markers: (0) No ST Deviation Greater than 0.5mm: (0) No JAMEL Score: 2 Results - Labs CBC & Chem 7: 10/16/19 04:09 10/16/19 04:09 Labs: Laboratory Last Values WBC 6.7 K/mm3 (4.5-11.0) 10/16/19 04:09 RBC 3.66 M/mm3 (3.65-5.03) 10/16/19 04:09 Hgb 10.5 gm/dl (11.8-15.2) L 10/16/19 04:09 Hct 32.4 % (35.5-45.6) L 10/16/19 04:09 MCV 89 fl (84-94) 10/16/19 04:09 MCH 29 pg (28-32) 10/16/19 04:09 MCHC 32 % (32-34) 10/16/19 04:09 RDW 17.7 % (13.2-15.2) H 10/16/19 04:09 Plt Count 148 K/mm3 (140-440) 10/16/19 04:09 Lymph % (Auto) 21.1 % (13.4-35.0) 10/12/19 12:14 [place] % (Auto) 11.8 % (0.0-7.3) H 10/12/19 12:14 Eos % (Auto) 1.5 % (0.0-4.3) 10/12/19 12:14 Baso % (Auto) 0.8 % (0.0-1.8) 10/12/19 12:14 Lymph # 1.3 K/mm3 (1.2-5.4) 10/12/19 12:14 [place] # 0.7 K/mm3 (0.0-0.8) 10/12/19 12:14 Eos # 0.1 K/mm3 (0.0-0.4) 10/12/19 12:14 Baso # 0.1 K/mm3 (0.0-0.1) 10/12/19 12:14 Seg Neutrophils % 64.8 % (40.0-70.0) 10/12/19 12:14 Seg Neutrophils # 4.0 K/mm3 (1.8-7.7) 10/12/19 12:14 PT 18.8 Sec. (12.2-14.9) H 10/12/19 12:14 INR 1.55 (0.87-1.13) H 10/12/19 12:14 APTT 36.0 Sec. (24.2-36.6) 10/12/19 12:14 Sodium 134 mmol/L (137-145) L 10/16/19 04:09 Potassium 3.9 mmol/L (3.6-5.0) 10/16/19 04:09 Chloride 96.4 mmol/L (98-107) L 10/16/19 04:09 Carbon Dioxide 25 mmol/L (22-30) 10/16/19 04:09 Anion Gap 17 mmol/L 10/16/19 04:09 BUN 21 mg/dL (9-20) H 10/16/19 04:09 Creatinine 1.2 mg/dL (0.8-1.5) 10/16/19 04:09 Estimated GFR > 60 ml/min 10/16/19 04:09 BUN/Creatinine Ratio 18 % 10/16/19 04:09 Glucose 92 mg/dL (75-100) 10/16/19 04:09 Calcium 8.1 mg/dL (8.4-10.2) L 10/16/19 04:09 Magnesium 1.80 mg/dL (1.7-2.3) 10/12/19 16:41 Total Bilirubin 1.80 mg/dL (0.1-1.2) H 10/14/19 05:30 Direct Bilirubin 1.5 mg/dL (0-0.2) H 10/12/19 12:14 Indirect Bilirubin 1.6 mg/dL 10/12/19 12:14 AST 30 units/L (5-40) 10/14/19 05:30 ALT 13 units/L (7-56) 10/14/19 05:30 Alkaline Phosphatase 148 units/L (35-129) H 10/14/19 05:30 Total Creatine Kinase 74 units/L (55-170) 10/12/19 12:14 CK-MB (CK-2) 1.7 ng/mL (0.0-4.0) 10/12/19 12:14 CK-MB (CK-2) Rel Index 2.2 (0-4) 10/12/19 12:14 Troponin T < 0.010 ng/mL (0.00-0.029) 10/12/19 12:14 NT-Pro-B Natriuret Pep 968.2 pg/mL (0-900) H 10/12/19 12:14 Total Protein 8.6 g/dL (6.3-8.2) H 10/14/19 05:30 Albumin 3.0 g/dL (3.9-5) L 10/14/19 05:30 Albumin/Globulin Ratio 0.5 % 10/14/19 05:30 TSH 2.660 mlU/mL (0.270-4.200) 10/12/19 16:41 Free T4 1.57 ng/dL (0.76-1.46) H 10/12/19 16:41 Active Medications - Current Medications Current Medications: Generic Name Dose Route Start Last Admin Trade Name Freq PRN Reason Stop Dose Admin Acetaminophen 650 mg 10/12/19 13:48 10/16/19 01:04 Tylenol PO 650 mg Q4H PRN Administration Pain MILD(1-3)/Fever >100.5/GARCIA Apixaban 5 mg 10/12/19 22:00 10/16/19 10:32 Eliquis PO 5 mg Q12HR SLOAN Administration Protocol Chlordiazepoxide HCl 25 mg 10/12/19 13:51 Librium PO Q6H PRN Alcohol Withdrawal Famotidine 20 mg 10/12/19 22:00 10/16/19 10:32 Pepcid PO 20 mg BID SLOAN Administration Folic Acid 1 mg 10/13/19 10:00 10/16/19 10:32 Folvite PO 1 mg QDAY SLOAN Administration Losartan Potassium 50 mg 10/13/19 10:00 10/16/19 10:34 Cozaar PO Not Given QDAY [facility] Metoprolol Succinate 100 mg 10/15/19 15:00 10/16/19 10:35 Metoprolol Xl PO Not Given QDAY [facility] Multivitamins 1 each 10/13/19 10:00 10/16/19 10:32 Theragran Tab PO 1 each QDAY [facility] Administration Ondansetron HCl 4 mg 10/12/19 13:48 Zofran IV Q8H PRN Nausea And Vomiting Sodium Chloride 10 ml 10/12/19 22:00 10/16/19 10:32 Sodium Chloride Flush Syringe 10 Ml IV 10 ml BID SLOAN Administration Sodium Chloride 10 ml 10/12/19 13:48 10/13/19 06:50 Sodium Chloride Flush Syringe 10 Ml IV 10 ml PRN PRN Administration LINE FLUSH Spironolactone 25 mg 10/13/19 10:00 10/16/19 10:35 Aldactone PO Not Given QDAY [facility] Thiamine HCl 100 mg 10/13/19 10:00 10/16/19 10:32 Vitamin B-1 PO 100 mg QDAY [facility] Administration Torsemide 40 mg 10/15/19 18:00 10/16/19 06:29 Demadex PO Not Given BID@0600,1800 [facility]
[2019-10-17] MEDS: TORSEMIDE 10 MG TAB PO SCH (06:33)
[2019-10-17] MEDS ORDERED: METOPROLOL SUCCINATE XL 100 MG TAB PO SCH (08:33)
[2019-10-17] MEDS ORDERED: METOPROLOL SUCCINATE XL 25 MG TAB PO SCH (10:00)
--- NOTE | 2019-10-17 10:33 | Discharge Summary ---
Providers - Providers Date of Admission: 10/12/19 13:48 Attending physician: DESTINY PENN MD 10/13/19 08:59 Consult to Physician [CONS] Routine Comment: Consulting Provider: BERNARDO POSEY Physician Instructions: Reason For Exam: chf [facility] Reason for admission: Congestive heart failure Condition: Stable Hospital course: 54 YO Male with ETOH Dependence, Obesity, HTN, Systolic CHF(EF 10%), OA, Obesity Hypoventilation, Depression, SLE, Gout, Eczema, Lumbar Pain, Atrial Fib on therapeutic Anticoagulation, Medication Noncompliance presents to ED for evaluation. Pt states that he has experienced shortness of breath and generalized edema over the past 1 week with progressively worsening symptoms over the past 2 days. Patient was seen and evaluated by his vp ancillary today and was found to have difficulty breathing with a pulse oximetry of 86%. Patient was instructed to seek further care at [facility]. Patient seen and evaluated in the emergency department. Lab and imaging studies reviewed. Pt acknowledges orthopnea/PND, decreased exercise tolerance, dypsnea at rest, dypsnea on exertion, bilateral lower extremity edema, noncompliance with cardiac diet, as well as 20 lbs weight gain over the past 2 weeks. Pt denies Fever, Chills, CP, Palpitations, NVD, Trauma, Productive Cough, BRBPR, Unintentional weight loss, prolonged travel/immobility, unilateral leg swelling, calf pain, hemoptysis, skin rash or recent ill contacts. Pt seen and evaluated in ED and found to have CHF Decompensation as well as acute hypoxemic respiratory failure. Pt admitted to telemetry and initiated on CHF protocol. Prior admission on 05/29/2019 reviewed. All listed medication reviewed at time of admission. Extra 30 minutes dedicated to discussion of plan of care. Pt acknowledges understanding and agreement with care plan. - Patient Problems (1) Acute on chronic systolic (congestive) heart failure Current Visit: No Status: Acute Plan to address problem: Submental oxygen, strict I's/O, daily weight, BNP, thyroid panel, echo reviewed from 04/09, cardiology consulted, pulse oximetry, chest x-ray, magnesium level, diuresis, monitoring urine output every shift. Per Cardiology * We will resume optimal guidelines directed medical therapy including intravenous diuretics and oral anticoagulation. We will recommend strict salt restricted diet. Further outpatient management including device therapies will be recommended for patient to discuss with his primary outpatient vp ancillary. * Non complaince counselling provided * PER cardiology Recommend transitioning patient to by mouth torsemide 40 mg twice a day and continue to monitor urine output in order to verify appropriate diuresis prior to discharge. Also change metoprolol tartrate to metoprolol succinate 100 mg by mouth daily this was subsequently decreased to 50 mg due to bradycardia also clonidin stopped. Follow-up within 7 days as outpatient with [facility]. Advised compliance with medications, fluid and salt restriction. (2) Alcoholic liver disease Current Visit: No Status: Acute Plan to address problem: Supportive care, behavior change counseling, abstinence from alcohol use. Elevated Liver Enzymes, Continue to monitor. CLINICALLY STABLE Extensive counselling greater than 15 minutes (3) Obesity hypoventilation syndrome Current Visit: Yes Status: Acute Plan to address problem: Submental oxygen, (4) Atrial flutter with RVR Current Visit: No Status: Acute Plan to address problem: Supportive care, remote telemetry monitoring, rate control, therapeutic anticoagulation. adjustment to BB made. Will monitor overnight Will hold Clonidine due to Bradycardia. Discussed with the patient, adjustment was also made to beta-niki. (5) Acute hypoxemic respiratory failure Current Visit: Yes Status: Acute Plan to address problem: Improved (6) Hypertension Current Visit: Yes Status: Acute Qualifiers: Hypertension type: essential hypertension Qualified Code(s): I10 - Essential (primary) hypertension Plan to address problem: Monitor BP every shift, continue supportive care. (7) Depression Current Visit: Yes Status: Acute Plan to address problem: Supportive care, outpatient psychiatry follow-up. Continue medical management. (8) Osteoarthritis Current Visit: Yes Status: Acute Qualifiers: Laterality: unspecified laterality Plan to address problem: Pain control, supportive care, NSAID therapy as tolerated. Bradycardia -STOPPED CLONIDINE -DECREASED BB TO 50MG PO DAILY, CARDS WILL ADJUST OUTPATIENT We did have extensive discussion with this patient about compliance patient verbalized understanding all prescriptions were renewed. Disposition: TO HOME OR SELFCARE Time spent for discharge: 35 MINS Core Measure Documentation - Palliative Care Palliative Care/ Comfort Measures: Not Applicable - Core Measures Any of the following diagnoses?: heart failure - Heart Failure Discharge Requirements DAISY/ARB for LVSD if EF <40%: Yes Beta niki at discharge: Yes Exam - Physical Exam Narrative exam: General appearance: Present: No distress - EENT Eyes: Present: PERRL ENT: hearing intact, clear oral mucosa - Neck Neck: Present: supple, normal ROM - Respiratory Respiratory effort: normal Respiratory: bilateral: CTA - Cardiovascular Heart Sounds: Present: S1 & S2. Regular rate and rhythm absent: rub, click - Extremities Extremities: pulses symmetrical Extremity abnormal: edema Peripheral Pulses: within normal limits - Abdominal General gastrointestinal: Present: soft, non-tender, non-distended, normal bowel sounds Male genitourinary: Present: normal - Integumentary Integumentary: Present: clear, warm, dry - Musculoskeletal Musculoskeletal: generalized weakness - Psychiatric Psychiatric: appropriate mood/affect, intact judgment & insight - Neurologic Neurologic: CNII-XII intact, moves all extremities - Constitutional Vitals: Temp Pulse Resp BP Pulse Ox 98.3 F 61 15 125/86 98 10/17/19 07:18 10/17/19 08:01 10/17/19 08:01 10/17/19 07:18 10/17/19 08:01 Plan Activity: advance as tolerated, fall precautions Diet: low fat, low salt Special Instructions: record daily weights, record daily BP diary, smoking cessation Follow up with: ABBY CROSS MD [Staff Physician] - 7 Days WAYSIDE PIAACTONJOSE MD [Primary Care Provider] - 7 Days MARGE LUCERO MD [Staff Physician] - 7 Days Prescriptions: Spironolactone [Aldactone] 25 mg PO QDAY #30 tablet Losartan [Cozaar] 50 mg PO QDAY #30 tablet Torsemide [Demadex] 20 mg PO BID@0600,1800 #120 tablet Apixaban [Eliquis] 5 mg PO Q12HR #60 tablet Folic Acid [Folvite] 1 mg PO QDAY #30 tablet Metoprolol Xl [Metoprolol SUCCINATE ER TAB] 50 mg PO QDAY #30 tablet Famotidine [Pepcid] 20 mg PO BID #60 tablet Thiamine [Vitamin B-1] 100 mg PO QDAY #30 tablet
[2019-10-17] MEDS: APIXABAN 5 MG TAB PO SCH (10:47)
[2019-10-17] MEDS: MULTIVITAMINS ,THERAPEUTIC TAB PO SCH (10:47)
[2019-10-17] MEDS: THIAMINE 100 MG TAB PO SCH (10:47)
[2019-10-17] MEDS: FOLIC ACID 1 MG TAB PO SCH (10:47)
[2019-10-17] MEDS: FAMOTIDINE 20 MG TAB PO SCH (10:47)
[2019-10-17] MEDS: SPIRONOLACTONE 25 MG TAB PO SCH (10:48)
[2019-10-17] MEDS: LOSARTAN 50 MG TAB PO SCH (10:48)
[2019-10-17 10:49] VITALS: BP 130/74
--- NOTE | 2019-10-17 11:36 | Progress Note ---
Assessment and Plan Acute on chronic systolic heart failure noncompliance with medications, dietary restrictions and outpatient cardiac follow ups EF 15-20% by echo 03/2019 Chronic Atrial flutter, rate control on eliquis for oral anticoagulation Hx of alcoholic liver disease Hypertension Cor-pulmonale RBBB, chronic Recommendations: Continue current medical therapy OK to discharge from cardiac perspective - pt needs consistent outpatient cardiology f/u Subjective Date of service: 10/17/19 Interval history: No cardiac complaints. Pt feels well. Objective Vital Signs Temp Pulse Pulse Pulse Resp BP BP 10/17/19 10:49 62 130/74 10/17/19 10:48 62 130/74 10/17/19 10:47 63 130/74 10/17/19 08:01 61 61 15 10/17/19 07:18 98.3 F 61 22 125/86 10/17/19 04:01 98.5 F 54 L 18 124/75 10/16/19 23:11 98.3 F 58 L 18 120/78 10/16/19 22:38 62 62 18 10/16/19 20:00 98.4 F 62 18 131/83 10/16/19 19:47 57 L 10/16/19 17:27 58 L 126/79 10/16/19 16:54 98.3 F 61 18 141/92 10/16/19 11:59 98.0 F 54 L 18 119/80 Pulse Ox 10/17/19 10:49 10/17/19 10:48 10/17/19 10:47 99 10/17/19 08:01 98 10/17/19 07:18 99 10/17/19 04:01 98 10/16/19 23:11 98 10/16/19 22:38 96 10/16/19 20:00 96 10/16/19 19:47 10/16/19 17:27 98 10/16/19 16:54 94 10/16/19 11:59 97 - Physical Examination General: No Apparent Distress HEENT: Positive: PERRL Neck: Positive: trachea midline Cardiac: Positive: Reg Rate and Rhythm Lungs: Positive: clear to auscultation Neuro: Positive: Grossly Intact
== END 2019-10-17 14:38 | disposition home or self-care (01) | DRG 291 ==
LOC: ED 11:32 → 4A 13:48
PROVIDERS: ADMIT Internal Medicine; ATTEND Internal Medicine
DX: I11.0 Hypertensive heart disease with heart failure (principal); J96.01 Acute respiratory failure with hypoxia; I27.81 Cor pulmonale (chronic); I50.23 Acute on chronic systolic (congestive) heart failure; E66.2 Morbid (severe) obesity with alveolar hypoventilation; I48.20 Chronic atrial fibrillation, unspecified; F32.9 Major depressive disorder, single episode, unspecified; I42.0 Dilated cardiomyopathy; I48.92 Unspecified atrial flutter; M10.9 Gout, unspecified; K70.9 Alcoholic liver disease, unspecified; F10.20 Alcohol dependence, uncomplicated; Z79.01 Long term (current) use of anticoagulants; Z91.14 Patient's other noncompliance with medication regimen; Z71.3 Dietary counseling and surveillance; I25.2 Old myocardial infarction; Z88.6 Allergy status to analgesic agent; Z88.8 Allergy status to other drugs, medicaments and biological substances; Z82.49 Family history of ischemic heart disease and other diseases of the circulatory system; Z68.30 Body mass index [BMI] 30.0-30.9, adult
CPT/HCPCS: 36415; 71046; 71275; 80048; 80053; 82247; 82248; 82550; 82553; 83735; 83880; 84439; 84443; 84484; 85025; 85027; 85610; 85730; 87116; 90686; 90732; 93005; 93010; 96374; G0378; J1940; Q9967